=== PATIENT | female | born 1990 | race African-American/Black ===

== ENCOUNTER 2016-03-22 17:25 | Outpatient (CLI) | payer MEDICAID ==
--- NOTE | 2016-03-23 04:49 | L&D General Admission ---
General Admit Datetime Report Generated by CPN: 03/23/2016 04:45 INFORMATION Patient Age: 25 (03/22/2016 17:26:QS system process) EDC: 05/10/2016 00:00 (03/22/2016 17:30:Amaya Emmanuel RN) : 3 (03/22/2016 17:30:ARNOLDO Arzola) Para: 0 (03/22/2016 17:30:ARNOLDO Arzola) Term: 0 (03/22/2016 17:30:ARNOLDO Arzola) : 0 (03/22/2016 17:30:ARNOLDO Arzola) Spontaneous Abortions: 0 (03/22/2016 17:30:ARNOLDO Arzola) Induced Abortions: 2 (03/22/2016 17:30:ARNOLDO Arzola) Livin (03/22/2016 17:30:ARNOLDO Arzola) Cesareans: 0 (03/22/2016 17:30:ARNOLDO Arzola) VBACs: 0 (03/22/2016 17:30:Uma Turner RNC) [facility]ctopic: 0 [facility] Multiple Births: 0 (03/22/2016 17:30:[facility], [facility]) Baby, Number in Womb: 1 (03/22/2016 17:30:[facility], [facility]) CARE [facility] ([facility]/22[facility]2016 [facility]) Month of 1st Visit: October (03/22/2016 17:30:[facility], [facility]) Adequate Care: Yes (03/22/2016 17:30:[facility] [place], [facility]) Prepregnancy Weight (lb): 188 (03/22/2016 17:30:[facility], [facility]) Prepregnancy Weight (kg): 85.5 (03/22/2016 17:30:QS system process) Height (in): 63 (03/22/2016 18:34:QS system process) Height (in): 63 (03/22/2016 17:59:QS system process) Height (in): 63 (03/22/2016 17:58:QS system process) ALLERGIES Medication Allergy: No (03/22/2016 17:30:Uma Camp, RNC) Medication Allergies: No Known Allergies (03/22/2016) (03/22/2016 17:58:QS system process) Latex Allergy: No Latex Allergies (03/22/2016 17:30:Uma Camp, RNC) COMMUNICATION Primary Language: Greek (03/22/2016 17:30:Uma Camp, RNC) Medical Tx Preferred Language: Greek (03/22/2016 17:30:Uma Camp, RNC) Communication Barrier(s): None (03/22/2016 17:30:Uma Camp, RNC) DEMOGRAPHICS Address: [address] [place] [id number] (03/22/2016 17:26:QS system process) Zipcode: [address] (03/22/2016 17:26:QS system process) Home (03/22/2016 17:26:QS system process) N: [id number] (03/22/2016 17:26:QS system process) Next of Kin Name: CONTRERAS (03/22/2016 17:26:QS system process) Next of Kin (03/22/2016 17:26:QS system process) Next of Kin Relationship: SPO (03/22/2016 17:26:QS system process) Date of : 1990 (03/22/2016 17:26:QS system process) Marital Status: (03/22/2016 17:26:QS system process) Sex: Female (03/22/2016 17:26:QS system process) Occupation: Other (03/22/2016 17:30:ARNOLDO Arzola) Occupation- Other : [employer] (03/22/2016 17:30:ARNOLDO Arzola) Race: (03/22/2016 17:26:QS system process) Ethnicity: Non- or (03/22/2016 17:26:QS system process) Mandaeism: None (03/22/2016 17:26:QS system process) Education: 12 (03/22/2016 17:30:ARNOLDO Arzola) FOB Involved: Yes (03/22/2016 17:30:ARNOLDO Arzola) Father of Baby Name: Freddy Adames (03/22/2016 17:30:ARNOLDO Arzola) DRUG AND ALCOHOL USE Alcohol: No (03/22/2016 17:30:ARNOLDO Arzola) Cigarettes: Never Smoker. 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: [facility] (03/22/2016 17:30:Uma Camp, RN) Feeding Preference: Breast (03/22/2016 17:30:Uma Camp, RNC) Benefit of Breast Feed Discussed: Yes (03/22/2016 17:30:ARNOLDO Arzola) Circumcision: N/A (03/22/2016 17:30:ARNOLDO Arzola) Classes Attended: Unknown (03/22/2016 17:30:ARNOLDO Arzola) Tubal Ligation: No (03/22/2016 17:30:ARNOLDO Arzola) Tubal Authorization Signed: N/A (03/22/2016 17:30:ARNOLDO Arzola) Consent: N/A (03/22/2016 17:30:ARNOLDO Arzola) Consent Signed: N/A (03/22/2016 17:30:ARNOLDO Arzola) Plans for Labor and Delivery: None (03/22/2016 17:30:ARNOLDO Arzola) Support Person: Freddy Adames (03/22/2016 17:30:ARNOLDO Arzola) Support Person Relationship: (03/22/2016 17:30:ARNOLDO Arzola) Cultural/Spritual Practice: N/A (03/22/2016 17:30:ARNOLDO Arzola) Spir/Cult Dietary Needs: N/A (03/22/2016 17:30:ARNOLDO Arzola) LIVING SITUATION/DISCHARGE PLAN Living Arrangements: House (03/22/2016 17:30:ARNOLDO Arzola) Adequate Access to:: Electric; Heat; Refrigeration; Plumbing/Running water; Phone; Transportation (03/22/2016 17:30:ARNOLDO Arzola) WIC Program: Needs referral (03/22/2016 17:30:ARNOLDO Arzola) Discharge Him Director Person: Freddy Adames (03/22/2016 17:30:ARNOLDO Arzola) Person to Help after Discharge: Freddy Adames (03/22/2016 17:30:ARNOLDO Arzola) Currently Using Commun Resources: Yes (03/22/2016 17:30:ARNOLDO Arzola) Specify Current Resource Used: medicaid (03/22/2016 17:30:ARNOLDO Arzola) Outside Agency/Wire Web Worker: No (03/22/2016 17:30:ARNOLDO Arzola) Car Seat for Discharge: Yes (03/22/2016 17:30:ARNOLDO Arzola) Adoption Requested: No (03/22/2016 17:30:ARNOLDO Arzola) LABS Blood Type: O Positive (Annotations: Data stored by [facility] on behalf of user) (03/22/2016 17:30:ARNOLDO Arzola) Group Beta Strep: positive (03/22/2016 17:30:ARNOLDO Arzola) RPR/VDRL: Nonreactive (03/22/2016 17:30:ARNOLDO Arzola) HIV Exposure Test: Negative (03/22/2016 17:30:ARNOLDO Arzola) OB/PREVIOUS HISTORY Previous Procedures: None (03/22/2016 17:30:Uma [place], [facility]) Current Procedures: Ultrasound (03/22/2016 17:30:[facility] [place], [facility]) History of PIH: Unknown (03/22/2016 17:30:[facility], [facility]) Comments Obstetrical History: EAB x2 GHTN, Hypertrhyroidism, positive gbs in initial urine [place] in labor (03/22/2016 17:30:Uma Camp, [facility]) MEDICAL HISTORY Med Hx Thyroid Dysfunction: Yes (03/22/2016 17:30:Uma [place], [facility]) INFECTIOUS HISTORY Inf Hx Chlamydia: Yes (03/22/2016 17:30:Uma [place], [facility]) Details of Infectious Hx: positive chlamydia 10/2015 neg guy 12/01/15 (03/22/2016 17:30:Uma Camp, [facility])
--- NOTE | 2016-03-23 04:49 | L&D Flow Sheet ---
LD Flowsheet Datetime Report Generated by CPN: 03/23/2016 04:45 Datetime: 03/22/2016 18:55 Comments: efm off for discharge to home with reactive nst. See discharge summary (Uma Camp, RNC) Datetime: 03/22/2016 18:44 Comments: active movement verbalized (Uma Camp, RNC) Communication Communication: Report Given to @ Dr Negro (Uma Camp, RNC) Communication Comments: Dr negro given phone report of moderate variability with prolong accels . Reviewed pt ob history orders received to d/c to home with kick counts received (Uma Camp, RNC) Datetime: 03/22/2016 18:36 Vital Signs NBP Sys/Zuleyma/Mean (mmHg): 114 (QS system process) : 66 (QS system process) : 85 (QS system process) Pulse: 81 (QS system process) Datetime: 03/22/2016 18:20 Assessment A Monitor Interventions for FHR: Ultrasound Adjusted (Uma Camp, RNC) Comments: RN at bedside adjusting monitors (Uma Camp, RNC) Datetime: 03/22/2016 18:13 Patient Care Comments: movement palpated (Uma Camp, RNC) Datetime: 03/22/2016 17:52 Patient Care Patient Position/Activity: Right Lateral (Uma Camp, RNC) Datetime: 03/22/2016 17:46 Patient Care Patient Position/Activity: HOB Lowered; Right Lateral (Uma Camp, RNC) I/O Interventions: Popsicle; Clear Liquids Given (Uma Camp, RNC) Datetime: 03/22/2016 17:45 Vital Signs NBP Sys/Zuleyma/Mean (mmHg): 128 (QS system process) : 75 (QS system process) : 94 (QS system process) Pulse: 80 (QS system process) Datetime: 03/22/2016 17:44 Teaching Instructional Method: Demo; Verbal; Patient Instructed; Family/Support Person Instructed; Verbalized Understanding (ARNOLDO Arzola) Plan of Care: Plan of Care Discussed (ARNOLDO Arzola) Unit Routine: Vanderwagen to Room; Call Coleman; Bed; Monitoring (ARNOLDO Arzola) Teaching Comments: POC for NST process explained (ARNOLDO Arzola)
--- NOTE | 2016-03-23 04:49 | Antepartum Discharge Summary ---
Antepartum DC Datetime Report Generated by CPN: 03/23/2016 04:45 DIET/ACTIVITY/RESTRICTIONS Diet: Regular (03/22/2016 19:09:Uma Camp, RNC) Activity: Normal Activity (03/22/2016 19:09:Uma Camp, RNC) TEACHING/INSTRUCTIONS/REFERRALS Instructions Understood: Patient Verbalized Understanding; Support Person Verbalized Understanding (03/22/2016 19:09:Uma Camp, RNC) Referrals: None (03/22/2016 19:09:Uma Camp, RNC) Educational Materials- Other: care notes reviewed and signed for kick counts. (03/22/2016 19:09:Uma Camp, RNC) DISCHARGE INFORMATION Discharged AMA: No (03/22/2016 19:09:Uma Camp, RNC) Discharge Date/Time: 03/22/2016 19:01 (03/22/2016 19:09:Uma Johnny, RNC) Discharged To: Home (03/22/2016 19:09:Uma Camp, RNC) Discharge Provider Name: Corrie Palacios (03/22/2016 19:09:Uma Camp, RNC) Accompanied By: Freddy (03/22/2016 19:09:Uma Camp, RNC) Discharge Method: Ambulatory (03/22/2016 19:09:Uma Camp, RNC) Condition: Stable (03/22/2016 19:09:Uma Camp, RNC) FOLLOW UP INFORMATION Follow Up With: [facility] (03/22/2016 19:09:Uma Camp, RNC) Follow Up On: As Scheduled (03/22/2016 19:09:ARNOLDO Arzola) Follow Up Phone Number: [facility] - (03/22/2016 19:09:ARNOLDO Arzola)
--- NOTE | 2016-03-23 04:49 | L&D Admission Assessment ---
LD ADM ASMT Datetime Report Generated by CPN: 03/23/2016 04:45 WEIGHT Weight (lb): 200 (03/22/2016 18:34:QS system process) Weight (lb): 200 (03/22/2016 17:59:QS system process) Weight (lb): 200 (03/22/2016 17:58:QS system process) Weight (kg): 90.9 (03/22/2016 18:34:QS system process) Weight (kg): 90.9 (03/22/2016 17:59:QS system process) Weight (kg): 90.9 (03/22/2016 17:58:QS system process) Total Wt Gain (lb): 12 (03/22/2016 18:34:QS system process) Total Wt Gain (lb): 12 (03/22/2016 17:59:QS system process) Total Wt Gain (lb): 12 (03/22/2016 17:58:QS system process) Wt Gain (kg): 5.5 (03/22/2016 18:34:QS system process) Wt Gain (kg): 5.5 (03/22/2016 17:59:QS system process) Wt Gain (kg): 5.5 (03/22/2016 17:58:QS system process) BMI: 35.4 (03/22/2016 18:34:QS system process) BMI: 35.4 (03/22/2016 17:59:QS system process)
--- NOTE | 2016-03-23 04:49 | L&D Discharge Summary ---
OB Discharge Summary Datetime Report Generated by CPN: 03/23/2016 04:45 DISCHARGE DIAGNOSIS Diagnosis/Symptoms: Gestational Hypertension Diagnoses/Symptoms Other: iup 33 weeks nonreactive nst Gestation: 33.0 Number of Babies in Womb: 1 Parity: 0 DIET/ACTIVITY/RESTRICTIONS Diet: Regular Activity: Normal Activity TEACHING/INSTRUCTIONS/REFERRALS Instructions Understood: Patient Verbalized Understanding; Support Person Verbalized Understanding Referrals: None Educational Materials- Other: care notes reviewed and signed for kick counts. DISCHARGE INFORMATION Discharged AMA: No Discharge Date/Time: 03/22/2016 19:01 Discharged To: Home Discharge Provider Name: Corrie Palacios Accompanied By: De'Niko Discharge Method: Ambulatory Condition: Stable FOLLOW UP INFORMATION Follow Up With: [facility] Follow Up On: As Scheduled Follow Up Phone Number: [facility] -
== END 2016-03-22 18:45 | disposition home or self-care (01) ==
LOC: LC 17:25
PROVIDERS: ATTEND Obstetrics & Gynecology
PROC: 4A1HXCZ Monitoring of Products of Conception, Cardiac Rate, External Approach (ICD-10-PCS; principal; 2016-03-22)
DX: Z34.93 Encounter for supervision of normal pregnancy, unspecified, third trimester (principal); Z3A.33 33 weeks gestation of pregnancy
CPT/HCPCS: 59025

== ENCOUNTER 2016-03-29 11:25 | Outpatient (CLI) | payer MEDICAID ==
--- NOTE | 2016-03-29 11:38 | Non Stress Test Report ---
Non Stress Test Datetime Report Generated by CPN: 03/29/2016 11:38 DEMOGRAPHIC EGA NST: 33.0 INDICATION Indication for Study: Ordered by Provider VITAL SIGNS Temperature - NST: 98.3 Pulse - NST: 80 RESP - NST: 16 NBPSYS NST: 128 NBPDIA NST: 75 MONITORING Monitor Explained: Monitor Explained; Test Explained; Patient Verbalized Understanding Time on Monitor: 03/22/2016 17:44 Time off Monitor: 03/22/2016 18:55 NST Duration: 71 NST INTERVENTIONS NST Interventions: PO Hydration; Reposition Patient BABY A: [id number] BABY A Movement : Present Movement : Present Contraction Frequency : none FHR Baseline : 140 Accelerations : 15X15 Decelerations : Early Variability : Moderate 6-25bpm Variability : Moderate 6-25bpm NST Review: Meets Criteria for Reactive NST NST Review: Meets Criteria for Reactive NST NST Review and Verified By : Mira Emmanuel RN NST Results: Reactive NST REPORT Report Trigger: Send Report
--- NOTE | 2016-03-29 12:01 | L&D Flow Sheet ---
LD Flowsheet Datetime Report Generated by CPN: 03/29/2016 12:00 Datetime: 03/29/2016 11:55 Patient Care Comments: side to side (Terell Maddy, RN) Datetime: 03/29/2016 11:43 NBP Sys/Zuleyma/Mean (mmHg): 143 (QS system process) : 88 (QS system process) : 109 (QS system process) Pulse: 107 (QS system process) Datetime: 03/29/2016 11:42 I/O Interventions: Popsicle (Terell Castañeda, RN) Datetime: 03/29/2016 11:40 Respirations: 16 (Terell Csatañeda RN) Temperature (F): 98.0 (Terell Castañeda, RN) Temperature (C): 36.7 (QS system process) Monitor Interventions for UA: [place] Adjusted (Terell Castañeda RN) Monitor Interventions for FHR: Ultrasound Adjusted (Terell Castañeda RN) Pain Presence: None/Denies (Terell Castañeda, RN) Level of Consciousness: Fully Conscious (Terell Castañeda, RN) DTR's/Clonus: DTRs 2+; No Clonus (Terell Castañeda RN) Headache: Denies (Terell Castañeda RN) Breath Sounds, Left: Clear and Equal (Terell Castañeda RN) Breath Sounds, Right: Clear and Equal (Terell Castañeda, RN) Nausea/Vomiting: Denies (Terell Castañeda RN) RUQ Epigastric Pain: Denies (Terell Castañeda RN) Patient Position/Activity: Left Lateral (Terell Castañeda RN) I/O Interventions: Up to BR (Terell Castañeda RN) Patient Care Comments: Patient to L_D for Repeat NST (Terell Castañeda RN) Instructional Method: Verbal; Patient Instructed; Family/Support Person Instructed; Verbalized Understanding (Terell Castañeda RN) Plan of Care: Plan of Care Discussed (Terell Castañeda RN) Related: Common Discomforts of ; Maternal Physical Changes; Maternal Emotional Changes; Nutrition; Hydration; Activity and Rest (Terell Castañeda RN) Communication: RN at Bedside (Terell Castañeda RN)
== END 2016-03-29 15:00 | disposition home or self-care (01) ==
LOC: LC 11:25
PROVIDERS: ATTEND Obstetrics & Gynecology
PROC: 4A1HXCZ Monitoring of Products of Conception, Cardiac Rate, External Approach (ICD-10-PCS; principal; 2016-03-29)
DX: Z34.93 Encounter for supervision of normal pregnancy, unspecified, third trimester (principal); Z36 Encounter for antenatal screening of mother; Z3A.34 34 weeks gestation of pregnancy
CPT/HCPCS: 59025; 76819

== ENCOUNTER 2016-04-07 10:55 | Outpatient (CLI) | payer MEDICAID ==
--- NOTE | 2016-04-07 12:01 | L&D Flow Sheet ---
LD Flowsheet Datetime Report Generated by CPN: 04/07/2016 12:00 Datetime: 04/07/2016 11:14 Vital Signs NBP Sys/Zuleyma/Mean (mmHg): 117 (QS system process) : 75 (QS system process) : 92 (QS system process) Pulse: 85 (QS system process)
== END 2016-04-07 12:00 | disposition home or self-care (01) ==
LOC: LC 10:55
PROVIDERS: ATTEND Obstetrics & Gynecology
PROC: 4A1HXCZ Monitoring of Products of Conception, Cardiac Rate, External Approach (ICD-10-PCS; principal; 2016-04-07)
DX: O13.3 Gestational [pregnancy-induced] hypertension without significant proteinuria, third trimester (principal); Z3A.35 35 weeks gestation of pregnancy
CPT/HCPCS: 59025

== ENCOUNTER 2016-04-12 18:25 | Outpatient (CLI) | payer MEDICAID | END 2016-04-12 19:14 | disposition home or self-care (01) | LOC: LC 18:25 | PROVIDERS: ATTEND Specialist | PROC: 4A1HXCZ Monitoring of Products of Conception, Cardiac Rate, External Approach (ICD-10-PCS; principal; 2016-04-12) | DX: Z34.93 Encounter for supervision of normal pregnancy, unspecified, third trimester (principal); Z36 Encounter for antenatal screening of mother; Z3A.36 36 weeks gestation of pregnancy | CPT/HCPCS: 59025 ==

== ENCOUNTER → 2016-04-15 | Outpatient (CLI) | payer MEDICAID ==
--- NOTE | 2016-04-15 18:00 | L&D Flow Sheet ---
LD Flowsheet Datetime Report Generated by CPN: 04/15/2016 18:00 Datetime: 04/15/2016 17:53 NBP Sys/Zuleyma/Mean (mmHg): 138 (QS system process) : 81 (QS system process) : 104 (QS system process) Pulse: 93 (QS system process) LaborFlag: Labor (QS system process) Datetime: 04/15/2016 17:35 Stage of : Labor (Celestina Jones [facility])
[2016-04-15 18:03] LABS: APPEARANCE,URINE SLIGHTLY-CLOUDY; BILIRUBIN,URINE NEGATIVE (NEGATIVE); GLUCOSE, URINE 50 mg/dL (NEGATIVE); KETONES,URINE NEGATIVE (NEGATIVE); LEUKOCYTE ESTERASE,URINE NEGATIVE (NEGATIVE); NITRITE,URINE NEGATIVE (NEGATIVE); PROTEIN,URINE NEGATIVE (NEGATIVE); URINE SPECIFIC GRAVITY 1.004; UROBILINOGEN,URINE NEGATIVE mg/dL (<2.0)
[2016-04-15 18:04] LABS: ABSOLUTE EOSINOPHILS # (AUTO) 0.1 10^3/uL (0.0-0.6); ABSOLUTE LYMPHOCYTES (AUTO) 2.7 10^3/uL (0.5-4.7); ABSOLUTE MONOCYTES (AUTO) 1.6 10^3/uL (0.1-1.4); ABSOLUTE NEUT (AUTO) 9.9 10^3/uL (1.7-8.2); BASOPHILS % (AUTO) 0.3 % (0-2); EOSINOPHILS % (AUTO) 0.9 % (0-6); HEMATOCRIT 34.4 % (36.0-47.0); HEMOGLOBIN 11.7 g/dL (12.0-15.5); HGB HCT DIFFERENCE 0.7; LYMPHOCYTES % (AUTO) 18.6 % (13-45); MEAN CORPUSCULAR HEMOGLOBIN 30.6 pg (27.0-33.4); MEAN CORPUSCULAR HGB CONC 34.1 g/dL (32.0-36.0); MEAN CORPUSCULAR VOLUME 90 fl (80-97); MONOCYTES % (AUTO) 11.2 % (3-13); RED BLOOD COUNT 3.83 10^6/uL (3.72-5.28); RED CELL DISTRIBUTION WIDTH 13.4 % (11.5-14.0); WHITE BLOOD COUNT 14.4 10^3/uL (4.0-10.5)
[2016-04-15 18:19] LABS: URINE BARBITURATES SCREEN NEGATIVE; URINE METHADONE SCREEN NEGATIVE; URINE OPIATES LOW NEGATIVE; URINE PHENCYCLIDINE SCREEN NEGATIVE
[2016-04-15 18:23] LABS: ALANINE AMINOTRANSFERASE 26 U/L (9-52); ALBUMIN 3.2 g/dL (3.5-5.0); ALKALINE PHOSPHATASE 163 U/L (38-126); ANION GAP 10 (5-19); ASPARTATE AMINO TRANSFERASE 19 U/L (14-36); BILIRUBIN,TOTAL 0.4 mg/dL (0.2-1.3); BLOOD UREA NITROGEN 7 mg/dL (7-20); CALCIUM 9.9 mg/dL (8.4-10.2); CARBON DIOXIDE 25 mmol/L (22-30); CHLORIDE 105 mmol/L (98-107); CREATININE RESULT 0.59 mg/dL (0.52-1.25); GLUCOSE 91 mg/dL (75-110); LDH 416 U/L (313-618); POTASSIUM 3.6 mmol/L (3.6-5.0); SODIUM 139.6 mmol/L (137-145); TOTAL PROTEIN 6.3 g/dL (6.3-8.2); URIC ACID 3.7 mg/dL (2.5-6.2)
--- NOTE | 2016-04-15 20:00 | L&D Flow Sheet ---
LD Flowsheet Datetime Report Generated by CPN: 04/15/2016 20:00 Datetime: 04/15/2016 18:47 Additional Nursing Comments: Pt physically left L_D ambulatory in stable condition with 24 hour urine in hand and instructions for f/u Yves at office. (ARNOLDO Acosta) Datetime: 04/15/2016 18:37 Communication: Call/Page Returned by Provider (ARNOLDO Acosta) Communication Comments: Report to Dr. Munoz re: labs, Bps, reactive EFM tracing, orders for D/C home received with F/U at office. (Celestina Jones, RNC) Datetime: 04/15/2016 18:24 NBP Sys/Zuleyma/Mean (mmHg): 120 (QS system process) : 71 (QS system process) : 89 (QS system process) Pulse: 87 (QS system process) LaborFlag: Labor (QS system process) Datetime: 04/15/2016 18:08 NBP Sys/Zuleyma/Mean (mmHg): 135 (QS system process) : 78 (QS system process) : 102 (QS system process) Pulse: 102 (QS system process) LaborFlag: Labor (QS system process) Datetime: 04/15/2016 18:00 Monitor Mode: External; Palpation (ARNOLDO Acosta) Frequency (min): x0 (ARNOLDO Acosta) Quality: Mild/Moderate (ARNOLDO Acosta) Duration Criteria: Less than Two 120 Second Contractions (ARNOLDO Acosta) Pattern: Normal: <= 5 Contractions in 10 Minutes (ARNOLDO Acosta) Resting Tone (Palpate): Relaxed (ARNOLDO Acosta) Monitor Mode: External US (ARNOLDO Acosta) FHR Baseline Rate : 145 (ARNOLDO Acosta) Variability: Moderate 6-25 bpm (ARNOLDO Aocsta) Accelerations: 15X15 (ARNOLDO Acosta) Decelerations: None (ARNOLDO Acosta)
[2016-04-20 14:03] LABS: PROTEIN TOTAL UR 24HR 632.2 mg/24 hr (30.0-150.0)
== END ==
LOC: LC 17:13
PROVIDERS: ATTEND Obstetrics & Gynecology
PROC: 4A1HXCZ Monitoring of Products of Conception, Cardiac Rate, External Approach (ICD-10-PCS; principal; 2016-04-15)
DX: O13.3 Gestational [pregnancy-induced] hypertension without significant proteinuria, third trimester (principal); Z3A.36 36 weeks gestation of pregnancy
CPT/HCPCS: 36415; 59025; 80053; 80307; 81001; 83615; 84156; 84550; 85025

== ENCOUNTER 2016-04-18 16:33 | Inpatient (IN) | payer MEDICAID ==
[2016-04-18] MEDS ORDERED: MISOPROSTOL 0.1 MG TABLET ONE ×2 (17:15→21:32)
[2016-04-18 17:30] LABS: APPEARANCE,URINE CLEAR; BILIRUBIN,URINE NEGATIVE (NEGATIVE); GLUCOSE, URINE 50 mg/dL (NEGATIVE); KETONES,URINE NEGATIVE (NEGATIVE); LEUKOCYTE ESTERASE,URINE NEGATIVE (NEGATIVE); NITRITE,URINE NEGATIVE (NEGATIVE); PROTEIN,URINE NEGATIVE (NEGATIVE); URINE SPECIFIC GRAVITY 1.004; UROBILINOGEN,URINE NEGATIVE mg/dL (<2.0)
[2016-04-18 18:01] LABS: URINE BARBITURATES SCREEN NEGATIVE; URINE METHADONE SCREEN NEGATIVE; URINE OPIATES LOW NEGATIVE; URINE PHENCYCLIDINE SCREEN NEGATIVE
--- NOTE | 2016-04-18 18:01 | L&D Flow Sheet ---
LD Flowsheet Datetime Report Generated by CPN: 04/18/2016 18:00 Datetime: 04/18/2016 17:37 Pain Scale: 0 (Cheri Arin, RN) Pain Presence: None/Denies (Cheri Arin, RN) Pain Type: N/A (Cheri Arin, RN) Vaginal Bleeding: None (Cheri Arin, RN) Level of Consciousness: Fully Conscious (Cheri Arin, RN) Headache: Denies (Cheri Arin, RN) Breath Sounds, Left: Clear and Equal (Cheri Arin, RN) Breath Sounds, Right: Clear and Equal (Cheri Arin, RN) Nausea/Vomiting: Denies (Cheri Arin, RN) RUQ Epigastric Pain: Denies (Cheri Arin, RN) LaborFlag: Labor (QS system process) Datetime: 04/18/2016 17:33 NBP Sys/Zuleyma/Mean (mmHg): 140 (QS system process) : 93 (QS system process) : 112 (QS system process) Pulse: 84 (QS system process) LaborFlag: Labor (QS system process) Datetime: 04/18/2016 17:22 Communication Comments: C .Barros CNM at bedside (Cheri Arin, RN) Datetime: 04/18/2016 17:20 Patient Position/Activity: Left Tilt (Cheri Arin, RN) Datetime: 04/18/2016 17:16 Exam by: Dr. Nassar (Cheri Hinkle RN) Vaginal Exam Comments: fingertip/thick/high/posterior (Cheri Hinkle RN) Medication Comments: 25mcg Cytotec Pv (Cheri Hinkle RN) Datetime: 04/18/2016 17:03 NBP Sys/Zuleyma/Mean (mmHg): 138 (QS system process) : 98 (QS system process) : 110 (QS system process) Pulse: 85 (QS system process) LaborFlag: Labor (QS system process)
[2016-04-18] MEDS ORDERED: RINGERS SOLUTION,LACTATED 300 ML IV ONE (18:06)
[2016-04-18] MEDS ORDERED: PENICILLIN G POTASSIUM 5,000,000 UNIT in DEXTROSE 5%-WATER 100 ML IV ONE (18:06)
[2016-04-18 19:24] LABS: ABSOLUTE EOSINOPHILS # (AUTO) 0.1 10^3/uL (0.0-0.6); ABSOLUTE LYMPHOCYTES (AUTO) 2.7 10^3/uL (0.5-4.7); ABSOLUTE MONOCYTES (AUTO) 1.2 10^3/uL (0.1-1.4); ABSOLUTE NEUT (AUTO) 8.6 10^3/uL (1.7-8.2); BASOPHILS % (AUTO) 0.2 % (0-2); EOSINOPHILS % (AUTO) 0.9 % (0-6); HEMOGLOBIN 12.1 g/dL (12.0-15.5); HGB HCT DIFFERENCE 0.3; LYMPHOCYTES % (AUTO) 21.3 % (13-45); MEAN CORPUSCULAR HEMOGLOBIN 30.2 pg (27.0-33.4); MEAN CORPUSCULAR HGB CONC 33.5 g/dL (32.0-36.0); MEAN CORPUSCULAR VOLUME 90 fl (80-97); MONOCYTES % (AUTO) 9.6 % (3-13); RED BLOOD COUNT 3.99 10^6/uL (3.72-5.28); RED CELL DISTRIBUTION WIDTH 13.3 % (11.5-14.0); WHITE BLOOD COUNT 12.6 10^3/uL (4.0-10.5)
[2016-04-18 19:46] LABS: ALANINE AMINOTRANSFERASE 32 U/L (9-52); ALBUMIN 3.3 g/dL (3.5-5.0); ALKALINE PHOSPHATASE 187 U/L (38-126); ANION GAP 11 (5-19); ASPARTATE AMINO TRANSFERASE 21 U/L (14-36); BILIRUBIN,TOTAL 0.6 mg/dL (0.2-1.3); BLOOD UREA NITROGEN 3 mg/dL (7-20); CALCIUM 9.3 mg/dL (8.4-10.2); CARBON DIOXIDE 21 mmol/L (22-30); CHLORIDE 105 mmol/L (98-107); CREATININE RESULT 0.53 mg/dL (0.52-1.25); GLUCOSE 72 mg/dL (75-110); LDH 429 U/L (313-618); POTASSIUM 3.4 mmol/L (3.6-5.0); SODIUM 137.2 mmol/L (137-145); TOTAL PROTEIN 6.6 g/dL (6.3-8.2); URIC ACID 3.4 mg/dL (2.5-6.2)
--- NOTE | 2016-04-18 20:01 | L&D Flow Sheet ---
LD Flowsheet Datetime Report Generated by CPN: 04/18/2016 20:00 Datetime: 04/18/2016 19:33 NBP Sys/Zuleyma/Mean (mmHg): 137 (QS system process) : 80 (QS system process) : 103 (QS system process) Pulse: 90 (QS system process) LaborFlag: Antepartum (QS system process) Datetime: 04/18/2016 19:30 Stage of : Antepartum (Gin Del Angel, RN) Monitor Mode: External; Palpation (Gin Del Angel, RN) Frequency (min): irritability (Gin Del Angel RN) Resting Tone (Palpate): Relaxed (Gin Del Angel RN) Monitor Mode: External US (Gin Del Angel RN) FHR Baseline Rate : 130 (Gin Del Angel RN) Variability: Moderate 6-25 bpm (Gin Del Angel RN) Accelerations: 15X15 (Gin Del Angel RN) Comments: UTD if decels present during broken strip (Gin Del Angel RN) Pain Scale: 0 (Gin Del Angel RN) Pain Presence: None/Denies (Gin Del Angel RN) Pain Type: N/A (Gin Del Angel RN) Comfort Measures: Family Support (Gin Del Angel RN) Communication: RN at Bedside; RN Reviewed Strip (Gin Del Angel RN) LaborFlag: Antepartum (QS system process) Datetime: 04/18/2016 19:23 Comments: Patient sitting straight up to eat. Will reposition and adjust FHR monitor when finished with meal. (Gin Del Angel RN) Communication: RN at Bedside (Gin Del Angel RN) Communication Comments: Report given from Nadeem Hinkle RN. Assumed care at this time. (Gin Del Angel RN) Datetime: 04/18/2016 19:12 NBP Sys/Zuleyma/Mean (mmHg): 139 (QS system process) : 85 (QS system process) : 108 (QS system process) Pulse: 81 (QS system process) LaborFlag: Labor (QS system process) Datetime: 04/18/2016 19:09 Patient Position/Activity: Left Tilt (Cheri Arin, RN) Datetime: 04/18/2016 19:00 Monitor Mode: External (Cheri Arin, RN) Frequency (min): none (Cheri Arin, RN) Resting Tone (Palpate): Relaxed (Cheri Arin, RN) Monitor Mode: External US (Cheri Arin, RN) FHR Baseline Rate : 130 (Cheri Arin, RN) Variability: Moderate 6-25 bpm (Cheri Arin, RN) Accelerations: 15X15 (Cheri Arin, RN) Decelerations: None (Cheri Arin, RN) Datetime: 04/18/2016 18:59 I/O Interventions: Up to BR (Cheri Arin, RN) Datetime: 04/18/2016 18:33 NBP Sys/Zuleyma/Mean (mmHg): 142 (QS system process) : 93 (QS system process) : 113 (QS system process) Pulse: 83 (QS system process) LaborFlag: Labor (QS system process) Datetime: 04/18/2016 18:30 Monitor Mode: External; Palpation (Cheri Arin, RN) Frequency (min): none (Cheri Arin, RN) Quality: Mild (Cheri Arin, RN) Resting Tone (Palpate): Relaxed (Cheri Arin, RN) Monitor Mode: External US (Cheri Arin, RN) FHR Baseline Rate : 135 (Cheri Arin, RN) Variability: Moderate 6-25 bpm (Cheri Arin, RN) Accelerations: 15X15 (Cheri Arin, RN) Decelerations: None (Cheri Arin, RN) Datetime: 04/18/2016 18:00 Monitor Mode: External (Cheri Arin, RN) Frequency (min): none (Cheri Arin, RN) Quality: Mild (Cheri Arin, RN) Resting Tone (Palpate): Relaxed (Cheri Arin, RN) Monitor Mode: External US (Cheri Arin, RN) FHR Baseline Rate : 135 (Cheri Arin, RN) Variability: Moderate 6-25 bpm (Cheri Arin, RN) Accelerations: 15X15 (Cheri Arin, RN) Decelerations: None (Cheri Arin, RN)
[2016-04-18] MEDS: RINGERS SOLUTION,LACTATED 1,000 ML IV PRN (20:06)
[2016-04-18] MEDS: MISOPROSTOL 0.1 MG TABLET PV SCH (21:53)
--- NOTE | 2016-04-18 22:00 | L&D Flow Sheet ---
LD Flowsheet Datetime Report Generated by CPN: 04/18/2016 22:00 Datetime: 04/18/2016 21:48 Effacement (%): 50 (Gin Del Angel, RN) Station: -2 (Gin Del Angel, RN) Exam by: B Del Angel, RN (Gin Del Angel, RN) Vaginal Bleeding: None (Gin Del Angel, RN) Cervix, Consistency: Moderate (Gin Del Angel, RN) Cervix, Position: Posterior (Gin Del Angel, RN) Vaginal Exam Comments: Fingertip (Ign Del Angel, RN) Cervical Ripening Agents: Cytotec @ 25 (Gin Del Angel, RN) Medication Comments: PV (Gin Del Angel, RN) Datetime: 04/18/2016 21:24 I/O Interventions: Up to BR (Gin Del Angel, RN) Datetime: 04/18/2016 21:03 NBP Sys/Zuleyma/Mean (mmHg): 137 (QS system process) : 81 (QS system process) : 104 (QS system process) Pulse: 89 (QS system process) LaborFlag: Antepartum (QS system process) Datetime: 04/18/2016 21:00 Stage of : Antepartum (Gin Del Angel, RN) Monitor Mode: External; Palpation (Gin Del Angel, RN) Frequency (min): x1 with irritability (Gin Del Angel, RN) Quality: Mild (Gin Del Angel, RN) Duration (sec): 70 (Gin Del Angel, RN) Pattern: Normal: <= 5 Contractions in 10 Minutes (Gin Del Angel, RN) Resting Tone (Palpate): Relaxed (Gin Del Angel, RN) Monitor Mode: External US (Gin Del Angel, RN) FHR Baseline Rate : 130 (Gin Del Angel, RN) Variability: Moderate 6-25 bpm (Gin Del Angel, RN) Accelerations: 15X15 (Gin Del Angel, RN) Decelerations: None (Gin Del Angel, RN) Communication: RN at Bedside; RN Reviewed Strip (Gin Del Angel, RN) Datetime: 04/18/2016 20:34 I/O Interventions: Up to BR (Gin Del Angel, RN) Datetime: 04/18/2016 20:33 NBP Sys/Zuleyma/Mean (mmHg): 127 (QS system process) : 89 (QS system process) : 105 (QS system process) Pulse: 98 (QS system process) LaborFlag: Antepartum (QS system process) Datetime: 04/18/2016 20:30 Stage of : Antepartum (Gin Del Angel, RN) Respirations: 18 (Gin Del Angel, RN) Temperature (F): 98.2 (Gin Del Angel, RN) Temperature (C): 36.8 (QS system process) Monitor Mode: External; Palpation (Gin Del Angel, RN) Frequency (min): irritability (Gin Del Angel, RN) Resting Tone (Palpate): Relaxed (Gin Del Angel, RN) Monitor Mode: External US (Gin Del Angel, RN) FHR Baseline Rate : 130 (Gin Del Angel, RN) Variability: Moderate 6-25 bpm (Gin Del Angel, RN) Accelerations: 15X15 (Gin Del Angel, RN) Decelerations: None (Gin Del Angel, RN) Pain Scale: 0 (Gin Del Angel RN) Pain Presence: None/Denies (Gin Del Angel, RN) Pain Type: N/A (Gin Del Angel, RN) Pain Relief Measures: Comfort Measures (Gin Del Angel RN) Comfort Measures: Breathing/Relaxation; Family Support (Gin Del Angel RN) Communication: RN at Bedside; RN Reviewed Strip (Gin Del Angel RN) LaborFlag: Antepartum (QS system process) Datetime: 04/18/2016 20:06 IV/Blood Work: New IV Bag Hung (Gin Del Angel, RN) Datetime: 04/18/2016 20:03 NBP Sys/Zuleyma/Mean (mmHg): 136 (QS system process) : 84 (QS system process) : 105 (QS system process) Pulse: 93 (QS system process) LaborFlag: Antepartum (QS system process) Datetime: 04/18/2016 20:00 Stage of : Antepartum (Gin Del Angel, RN) Monitor Mode: External (Gin Del Angel, RN) Frequency (min): x1 (Gin Del Angel, RN) Quality: Mild (Gin Del Angel, RN) Duration (sec): 60 (Gin Del Angel, RN) Resting Tone (Palpate): Relaxed (Gin Del Angel, RN) FHR Baseline Changes: Unable to Determine (Gin Del Angel, RN) Comments: UTD due to baby being off the monitor due to patient positioning for meal. (Gin Del Angel, DAYRON) Communication: RN at Bedside; RN Reviewed Strip (Gin Del Angel RN)
[2016-04-18] MEDS ORDERED: PENICILLIN G-K 5 MILLION UNIT VIAL ONE (23:46)
[2016-04-19] MEDS: PENICILLIN G POTASSIUM 2,500,000 UNIT in DEXTROSE 5%-WATER 50 ML IV SCH ×2 (01:23→03:47)
[2016-04-19] MEDS ORDERED: MISOPROSTOL 0.1 MG TABLET ONE (01:23)
[2016-04-19] MEDS: MISOPROSTOL 0.1 MG TABLET PV SCH (01:24)
[2016-04-19] MEDS ORDERED: PENICILLIN G-K 5 MILLION UNIT VIAL ONE ×2 (03:41→15:38)
--- NOTE | 2016-04-19 08:01 | L&D Flow Sheet ---
LD Flowsheet Datetime Report Generated by CPN: 04/19/2016 08:00 Datetime: 04/19/2016 07:33 NBP Sys/Zuleyma/Mean (mmHg): 142 (QS system process) : 91 (QS system process) : 112 (QS system process) Pulse: 75 (QS system process) LaborFlag: Antepartum (QS system process) Datetime: 04/19/2016 07:15 Communication: RN at Bedside; Report Given to @ Thaddeus Jones RN (Gin Del Angel, RN) Communication Comments: Care relinquished at this time (Gin Del Angel, RN) Datetime: 04/19/2016 07:03 NBP Sys/Zuleyma/Mean (mmHg): 137 (QS system process) : 90 (QS system process) : 111 (QS system process) Pulse: 75 (QS system process) LaborFlag: Antepartum (QS system process) Datetime: 04/19/2016 07:00 Stage of : Antepartum (Gin Del Angel, RN) Monitor Mode: External (Gin Del Angel, RN) Frequency (min): 2-3 (Gin Del Angel, RN) Quality: Mild (Gin Del Angel, RN) Duration (sec): 60-90 (Gin Del Angel, RN) Pattern: Normal: <= 5 Contractions in 10 Minutes (Gin Del Angel, RN) Resting Tone (Palpate): Relaxed (Gin Del Angel, RN) Monitor Mode: External US (Gin Del Angel, RN) FHR Baseline Rate : 125 (Gin Del Angel, RN) Variability: Moderate 6-25 bpm (Gin Del Angel, RN) Accelerations: 10X10 (Gin Del Angel, RN) Decelerations: None (Gin Del Angel, RN) Communication: RN at Bedside; RN Reviewed Strip (Gin Dle Angel, RN) Datetime: 04/19/2016 06:54 I/O Interventions: Up to BR (Gin Del Angel, RN) Datetime: 04/19/2016 06:33 NBP Sys/Zuleyma/Mean (mmHg): 133 (QS system process) : 88 (QS system process) : 107 (QS system process) Pulse: 76 (QS system process) LaborFlag: Antepartum (QS system process) Datetime: 04/19/2016 06:30 Stage of : Antepartum (Gin Del Angel, RN) Monitor Mode: External (Gin Del Angel, RN) Frequency (min): 1-7 (Gin Del Angel, RN) Quality: Mild (Gin Del Angel, RN) Duration (sec): 70-90 (Gin Del Angel, RN) Pattern: Normal: <= 5 Contractions in 10 Minutes (Gin Del Angel, RN) Resting Tone (Palpate): Relaxed (Gin Del Angel, RN) Monitor Mode: External US (Gin Del Angel, RN) FHR Baseline Rate : 125 (Gin Del Angel, RN) Variability: Moderate 6-25 bpm (Gin Del Angel, RN) Accelerations: 10X10 (Gin Del Angel, RN) Communication: RN at Bedside; RN Reviewed Strip (Gin Del Angel, RN) Datetime: 04/19/2016 06:16 I/O Interventions: Up to BR (Gin Del Angel, RN) Datetime: 04/19/2016 06:03 NBP Sys/Zuleyma/Mean (mmHg): 138 (QS system process) : 89 (QS system process) : 109 (QS system process) Pulse: 73 (QS system process) LaborFlag: Antepartum (QS system process) Datetime: 04/19/2016 06:00 Stage of : Antepartum (Gin Del Angel, RN) Monitor Mode: External (Gin Del Angel, RN) Frequency (min): 1.5-3 (Gin Del Angel, RN) Quality: Mild (Gin Del Angel, RN) Duration (sec): 60-100 (Gin Del Angel, RN) Pattern: Normal: <= 5 Contractions in 10 Minutes (Gin Del Angel, RN) Resting Tone (Palpate): Relaxed (Gin Del Angel, RN) Monitor Mode: External US (Gin Del Angel, RN) FHR Baseline Rate : 130 (Gin Del Angel, RN) Variability: Moderate 6-25 bpm (Gin Del Angel, RN) Accelerations: 15X15 (Gin Del Angel, RN) Decelerations: None (Gin Dela Ngel, RN) Communication: RN at Bedside; RN Reviewed Strip (Gin Del Angel, RN) Datetime: 04/19/2016 05:46 Communication: Provider Orders Received (Gin Del Angel, RN) Communication Comments: Provider on unit, reviewed strip and given report re: patient cervical exams and contraction pattern. Orders received to have patient order breakfast and allow patient off monitors for one hour. (Gin Del Angel, RN) Datetime: 04/19/2016 05:42 Dilatation (cm): 0.5 (Gin Del Angel, RN) Effacement (%): 50 (Gin Del Angel, RN) Station: -2 (Gin Del Angel, RN) Exam by: B Del Angel, RN (Gin Del Angel, RN) Membrane Status: Intact (Maxine Lattibmelissa, RN) Vaginal Bleeding: None (Gin Del Angel, RN) Cervix, Consistency: Moderate (Gin Del Angel, RN) Cervix, Position: Posterior (Gin Del Angel, RN) Datetime: 04/19/2016 05:36 I/O Interventions: Up to BR (Gin Del Angel, RN) Datetime: 04/19/2016 05:33 NBP Sys/Zuleyma/Mean (mmHg): 139 (QS system process) : 92 (QS system process) : 110 (QS system process) Pulse: 74 (QS system process) LaborFlag: Antepartum (QS system process) Datetime: 04/19/2016 05:30 Stage of : Antepartum (Gin Del Angel, RN) Respirations: 18 (Gin Del Angel, RN) Temperature (F): 98.1 (Gin Del Angel, RN) Temperature (C): 36.7 (QS system process) Monitor Mode: External; Palpation (Gin Del Angel, RN) Frequency (min): 1.5-2.5 (Gin Del Angel, RN) Quality: Mild (Gin Del Angel, RN) Duration (sec): 70-100 (Gin Del Angel, RN) Pattern: Normal: <= 5 Contractions in 10 Minutes (Gin Del Angel RN) Resting Tone (Palpate): Relaxed (Gin Del Angel RN) Monitor Mode: External US (Gin Del Angel RN) FHR Baseline Rate : 130 (Gin Del Angel RN) Variability: Moderate 6-25 bpm (Gin Del Angel RN) Accelerations: 10X10 (Gin Del Angel RN) Decelerations: None (Gin Del Angel RN) Pain Scale: 2 (Gin Del Angel RN) Pain Presence: Intermittent (Gin Del Angel RN) Pain Type: Cramping (Gin Del Angel RN) Pain Location: Abdomen (Gin Del Angel RN) Pain Goal: 1 (Gin Del Angel RN) Pain Relief Measures: Comfort Measures (Gin Del Angel RN) Pain Coping: Talking Through Contractions (Gin Del Angel RN) Comfort Measures: Breathing/Relaxation (Gin Del Angel RN) Communication: RN at Bedside; RN Reviewed Strip (Gin Del Angel RN) LaborFlag: Antepartum (QS system process) Datetime: 04/19/2016 05:03 NBP Sys/Zuleyma/Mean (mmHg): 131 (QS system process) : 83 (QS system process) : 102 (QS system process) Pulse: 70 (QS system process) LaborFlag: Antepartum (QS system process) Datetime: 04/19/2016 05:00 Stage of : Antepartum (Gin Del Angel, RN) Monitor Mode: External (Gin Del Angel, RN) Frequency (min): 1.5-3 (Gin Del Angel, RN) Quality: Mild (Gin Del Angel, RN) Duration (sec): 70-90 (Gin Del Angel, RN) Pattern: Normal: <= 5 Contractions in 10 Minutes (Gin Del Angel, RN) Resting Tone (Palpate): Relaxed (Gin Del Angel, RN) Monitor Mode: External US (Gin Del Angel, RN) FHR Baseline Rate : 135 (Gin Del Angel, RN) Variability: Moderate 6-25 bpm (Gin Del Angel, RN) Accelerations: 15X15 (Gin Del Angel, RN) Decelerations: None (Gin Del Angel, RN) Communication: RN Reviewed Strip (Gin Del Angel, RN) Datetime: 04/19/2016 04:34 NBP Sys/Zuleyma/Mean (mmHg): 153 (QS system process) : 86 (QS system process) : 110 (QS system process) Pulse: 71 (QS system process) LaborFlag: Antepartum (QS system process) Datetime: 04/19/2016 04:30 Stage of : Antepartum (Gin Del Angel, RN) Monitor Mode: External (Gin Del Angel, RN) Frequency (min): 1.5-3 (Gin Del Angel, RN) Quality: Mild (Gin Del Angel, RN) Duration (sec): 70-90 (Gin Del Angel, RN) Pattern: Normal: <= 5 Contractions in 10 Minutes (Gin Del Angel, RN) Resting Tone (Palpate): Relaxed (Gin Del Angel, RN) Communication: RN Reviewed Strip (Gin Del Angel, RN) Datetime: 04/19/2016 04:04 NBP Sys/Zuleyma/Mean (mmHg): 139 (QS system process) : 85 (QS system process) : 108 (QS system process) Pulse: 72 (QS system process) LaborFlag: Antepartum (QS system process) Datetime: 04/19/2016 04:00 Stage of : Antepartum (Gin Del Angel, RN) Monitor Mode: External (Gin Del Angel, RN) Frequency (min): 1.5-2 (Gin Del Angel, RN) Quality: Mild (Gin Del Angel, RN) Duration (sec): 60-70 (Gin Del Angel, RN) Pattern: Normal: <= 5 Contractions in 10 Minutes (Gin Del Angel, RN) Resting Tone (Palpate): Relaxed (Gin Del Angel, RN) Monitor Mode: External US (Gin Del Angel, RN) Monitor Interventions for FHR: Ultrasound Adjusted (Gin Del Angel, RN) FHR Baseline Rate : 130 (Gni Del Angel, RN) Variability: Moderate 6-25 bpm (Gin Del Angel, RN) Accelerations: 10X10 (Gin Del Angel, RN) Comments: UTD if decels present during broken strip (Gin Del Angel, RN) Communication: RN at Bedside; RN Reviewed Strip (Gin Del Angel, RN) Datetime: 04/19/2016 03:47 Monitor Interventions for FHR: Ultrasound Adjusted (Gin Del Angel, RN) Antibiotics: Penicillin IV (Units) @ 2.5 million units (Gin Del Angel, RN) Datetime: 04/19/2016 03:46 Monitor Interventions for UA: [place] Adjusted (Gin Del Angel, RN) Datetime: 04/19/2016 03:33 NBP Sys/Zuleyma/Mean (mmHg): 141 (QS system process) : 94 (QS system process) : 114 (QS system process) Pulse: 78 (QS system process) LaborFlag: Antepartum (QS system process) Datetime: 04/19/2016 03:30 Stage of : Antepartum (Gin Del Angel, RN) Monitor Mode: External; Palpation (Gin Del Angel, RN) Frequency (min): 1.5-3 (Gin Del Angel, RN) Quality: Mild (Gin Del Angel, RN) Duration (sec): 50-90 (Gin Del Angel, RN) Pattern: Normal: <= 5 Contractions in 10 Minutes (Gin Del Angel, RN) Resting Tone (Palpate): Relaxed (Gin Del Angel, RN) Monitor Mode: External US (Gin Del Angel, RN) FHR Baseline Rate : 135 (Gin Del Angel, RN) Variability: Moderate 6-25 bpm (Gin Del Angel, RN) Accelerations: 15X15 (Gin Del Angel, RN) Decelerations: None (Gin Del Angel, RN) Communication: RN at Bedside; RN Reviewed Strip (Gin Del Angel, RN) Datetime: 04/19/2016 03:27 I/O Interventions: Up to BR (Gin Del Angel, RN) Datetime: 04/19/2016 03:05 NBP Sys/Zuleyma/Mean (mmHg): 121 (QS system process) : 64 (QS system process) : 87 (QS system process) Pulse: 66 (QS system process) LaborFlag: Antepartum (QS system process) Datetime: 04/19/2016 03:00 Stage of : Antepartum (Gin Del Angel RN) Respirations: 18 (Gin Del Angel RN) Monitor Mode: External (Gin Del Angel, DAY[place]) Frequency (min): 2-2.5 (Gin Del Angel RN) Quality: Mild (Gin Del Angel RN) Duration (sec): 60-70 (Gin Del Angel, [place]RON) Pattern: Normal: <= 5 Contractions in 10 Minutes (Gin Del Angel RN) Resting Tone (Palpate): Relaxed (Gin Del Angel RN) Monitor Mode: External US (Gin Del Angel, [place]) FHR Baseline Rate : 145 (Gin Del Angel RN) Variability: Moderate 6-25 bpm (Gin Del Angel, DAYRON) Accelerations: None (Gin Del Angel RN) Pain Scale: 2 (Gin Del Angel RN) Pain Presence: Intermittent (Gin Del Angel RN) Pain Type: Cramping (Gin Del Angel RN) Pain Location: Abdomen (Gin Del Angel RN) Pain Goal: 1 (Gin Del Angel RN) Pain Relief Measures: Comfort Measures (Gin Del Angel RN) Comfort Measures: Breathing/Relaxation; Family Support (Gin Del Angel RN) Communication: RN at Bedside; RN Reviewed Strip (Gin Del Angel RN) LaborFlag: Antepartum (QS system process) Datetime: 04/19/2016 02:54 Monitor Interventions for FHR: Ultrasound Adjusted (Gin Del Angel, RN) Datetime: 04/19/2016 02:49 Monitor Interventions for FHR: Ultrasound Adjusted (Gin Del Angel, RN) Datetime: 04/19/2016 02:48 Monitor Interventions for UA: [place] Adjusted (Gin Del Angel, RN) Datetime: 04/19/2016 02:32 I/O Interventions: Up to BR (Gin Del Angel, RN) Datetime: 04/19/2016 02:30 Stage of : Antepartum (Gin Del Angel, RN) Monitor Mode: External (Gin Del Angel, RN) Frequency (min): 1.5-2.5 (Gin Del Angel, RN) Quality: Mild (Gin Del Angel, RN) Duration (sec): 70-80 (Gin Del Angel, RN) Pattern: Normal: <= 5 Contractions in 10 Minutes (Gin Del Angel, RN) Resting Tone (Palpate): Relaxed (Gin Del Angel, RN) Monitor Mode: External US (Gin Del Angel, RN) FHR Baseline Rate : 145 (Gin Del Angel, RN) Variability: Moderate 6-25 bpm (Gin Del Angel, RN) Accelerations: 10X10 (Gin Del Angel, RN) Decelerations: None (Gin Del Angel, RN) Communication: RN at Bedside; RN Reviewed Strip (Gin Del Angel, RN) Datetime: 04/19/2016 02:06 Monitor Interventions for UA: [place] Adjusted (Gin Del Angel, RN) Datetime: 04/19/2016 02:03 NBP Sys/Zuleyma/Mean (mmHg): 120 (QS system process) : 74 (QS system process) : 93 (QS system process) Pulse: 70 (QS system process) LaborFlag: Antepartum (QS system process) Datetime: 04/19/2016 02:00 Stage of : Antepartum (Gin Del Angel, RN) Monitor Mode: External; Palpation (Gin Del Angel, RN) Frequency (min): 1.5-3 (Gin Del Angel, RN) Quality: Mild (Gin Del Angel, RN) Duration (sec): 50-80 (Gin Del Nagel, RN) Pattern: Normal: <= 5 Contractions in 10 Minutes (Gin Del Angel, RN) Resting Tone (Palpate): Relaxed (Gin Del Angel, RN) Monitor Mode: External US (Gin Del Angel, RN) FHR Baseline Rate : 135 (Gin Del Angel, RN) Variability: Moderate 6-25 bpm (Gin Del Angel, RN) Accelerations: 15X15 (Gin Del Angel, RN) Decelerations: None (Gin Del Angel, RN) Communication: RN at Bedside; RN Reviewed Strip (Gin Del Angel, RN) Datetime: 04/19/2016 01:33 NBP Sys/Zuleyma/Mean (mmHg): 130 (QS system process) : 82 (QS system process) : 101 (QS system process) Pulse: 75 (QS system process) LaborFlag: Antepartum (QS system process) Datetime: 04/19/2016 01:30 Stage of : Antepartum (Gin Del Angel, RN) Monitor Mode: External (Gin Del Angel, RN) Frequency (min): 2-3 (Gin Del Angel, RN) Quality: Mild (Gin Del Angel, RN) Duration (sec): 50-70 (Gin Del Angel, RN) Pattern: Normal: <= 5 Contractions in 10 Minutes (Gin Del Angel, RN) Monitor Mode: External US (Gin Del Angel, RN) FHR Baseline Rate : 135 (Gin Del Angel, RN) Variability: Moderate 6-25 bpm (Gin Del Angel, RN) Accelerations: 15X15 (Gin Del Angel, RN) Comments: no decels noted while patient on monitors, UTD of decels present while patient using restroom (Gin Del Angel, RN) Communication: RN at Bedside; RN Reviewed Strip (Gin Del Angel, RN) Datetime: 04/19/2016 01:24 Cervical Ripening Agents: Cytotec @ 25 (Gin Del Angel, RN) Medication Comments: PV (Gin Del Angel, RN) Datetime: 04/19/2016 01:01 I/O Interventions: Up to BR (Gin Del Angel RN) Datetime: 04/19/2016 01:00 Stage of : Antepartum (Gin Del Angel RN) Monitor Mode: External; Palpation (Gin Del Angel RN) Frequency (min): 1-7 (Gin Del Angel RN) Quality: Mild (Gin Del Angel RN) Duration (sec): 50-90 (Gin Del Angel RN) Pattern: Normal: <= 5 Contractions in 10 Minutes (Gin Del Angel RN) Resting Tone (Palpate): Relaxed (Gin Del Angel RN) Monitor Mode: External US (Gin Del Angel RN) FHR Baseline Rate : 130 (Gin Del Angel RN) Variability: Moderate 6-25 bpm (Gin Del Angel RN) Accelerations: 15X15 (Gin Del Angel RN) Decelerations: None (Gin Del Angel RN) Dilatation (cm): 0.5 (Gin Del Angel RN) Effacement (%): 50 (Gin Del Angel RN) Station: -2 (Gin Del Angel RN) Exam by: Bonifacio Del Angel RN (Gin Del Angel RN) Vaginal Bleeding: None (Gin Del Angel RN) Cervix, Consistency: Moderate (Gin Del Angel RN) Cervix, Position: Posterior (Gin Del Angel RN) Vaginal Exam Comments: Fingertip (Gin Del Angel RN) Communication: RN at Bedside; RN Reviewed Strip (Gin Del Angel RN) Datetime: 04/19/2016 00:34 NBP Sys/Zuleyma/Mean (mmHg): 140 (QS system process) : 83 (QS system process) : 107 (QS system process) Pulse: 82 (QS system process) LaborFlag: Antepartum (QS system process) Datetime: 04/19/2016 00:30 Stage of : Antepartum (Gin Del Angel, RN) Monitor Mode: External; Palpation (Gin Del Angel, RN) Frequency (min): 1.5-3 (Gin Del Angel, RN) Quality: Mild (Gin Del Angel, RN) Duration (sec): 40-80 (Gin Del Angel, RN) Pattern: Normal: <= 5 Contractions in 10 Minutes (Gin Del Angel, RN) Resting Tone (Palpate): Relaxed (Gin Del Angel, RN) Monitor Mode: External US (Gin Del Angel, RN) FHR Baseline Rate : 130 (Gin Del Angel, RN) Variability: Moderate 6-25 bpm (Gin Del Angel, RN) Accelerations: 15X15 (Gin Del Angel, RN) Decelerations: None (Gin Del Angel RN) Pain Scale: 2 (iGn Del Angel RN) Pain Presence: Intermittent (Gin Del Angel RN) Pain Type: Cramping (Gin Del Angel RN) Pain Location: Abdomen; Back (Gin Del Angel RN) Pain Goal: 1 (Gin Del Angel RN) Pain Coping: Talking Through Contractions (Gin Del Angel RN) Comfort Measures: Breathing/Relaxation (Gin DelA ngel RN) Communication: RN at Bedside; RN Reviewed Strip (Gin Del Angel RN) LaborFlag: Antepartum (QS system process) Datetime: 04/19/2016 00:07 I/O Interventions: Ice Chips Given; Clear Liquids Given (Gin Del Angel RN) Datetime: 04/19/2016 00:03 NBP Sys/Zuleyma/Mean (mmHg): 135 (QS system process) : 89 (QS system process) : 104 (QS system process) Pulse: 72 (QS system process) LaborFlag: Antepartum (QS system process) Datetime: 04/19/2016 00:02 Monitor Interventions for UA: [place] Adjusted (Gin Del Angel, RN) Datetime: 04/19/2016 00:00 Stage of : Antepartum (Gin Del Angel, RN) Respirations: 18 (Gin Del Angel, RN) Temperature (F): 98.0 (Gin Del Angel, RN) Temperature (C): 36.7 (QS system process) Monitor Mode: External; Palpation (Gin Del Angel, RN) Frequency (min): x1 (Gin Del Angel, RN) Quality: Mild (Gin Del Angel, RN) Duration (sec): 80 (Gin Del Angel, RN) Pattern: Normal: <= 5 Contractions in 10 Minutes (Gin Del Angel, RN) Resting Tone (Palpate): Relaxed (Gin Del Anegl, RN) Monitor Mode: External US (Gin Del Angel, RN) FHR Baseline Rate : 130 (Gin Del Angel, RN) Variability: Moderate 6-25 bpm (Gin Del Angel, RN) Accelerations: 15X15 (Gin Del Angel, RN) Decelerations: None (Gin Del Angel RN) Pain Scale: 2 (Gin Del Angel RN) Pain Presence: Intermittent (Gin Del Angel RN) Pain Type: Cramping (Gin Del Angel RN) Pain Location: Abdomen; Back (Gin Del Angel RN) Pain Goal: 1 (Gin Del Angel RN) Pain Coping: Talking Through Contractions (Gin Del Angel RN) Comfort Measures: Breathing/Relaxation (Gin Del Angel RN) Communication: RN at Bedside; RN Reviewed Strip (Gin Del Angel RN) LaborFlag: Antepartum (QS system process) Datetime: 04/18/2016 23:59 Antibiotics: Start Antibiotics; Penicillin IV (Units) @ 5 million units (Gin Del Angel, RN) Datetime: 04/18/2016 23:48 I/O Interventions: Up to BR (Gin Del Angel, RN) Datetime: 04/18/2016 23:33 NBP Sys/Zuleyma/Mean (mmHg): 133 (QS system process) : 85 (QS system process) : 105 (QS system process) Pulse: 80 (QS system process) LaborFlag: Antepartum (QS system process) Datetime: 04/18/2016 23:30 Stage of : Antepartum (Gin Del Angel, RN) Monitor Mode: External (Gin Del Angel, RN) Frequency (min): x1 (Gin Del Angel, RN) Quality: Mild (Gin Del Angel, RN) Duration (sec): 70 (Gin Del Angel, RN) Pattern: Normal: <= 5 Contractions in 10 Minutes (Gin Del Angel, RN) Monitor Mode: External US (Gin Del Angel, RN) FHR Baseline Rate : 135 (Gin Del Angel, RN) Variability: Moderate 6-25 bpm (Gin Del Angel, RN) Accelerations: 15X15 (Gin Del Angel, RN) Decelerations: None (Gin Del Angel, RN) Pain Coping: Sleeping (Gin Del Angel, RN) Communication: RN at Bedside; RN Reviewed Strip (Gin Del Angel, RN) Datetime: 04/18/2016 23:03 NBP Sys/Zuleyma/Mean (mmHg): 142 (QS system process) : 84 (QS system process) : 109 (QS system process) Pulse: 74 (QS system process) LaborFlag: Antepartum (QS system process) Datetime: 04/18/2016 23:00 Stage of : Antepartum (Gin Del Angel, RN) Monitor Mode: External (Gin Del Angel, RN) Frequency (min): x2 (Gin Del Angel, RN) Quality: Mild (Gin Del Angel, RN) Duration (sec): 60-70 (Gin Del Angel, RN) Pattern: Normal: <= 5 Contractions in 10 Minutes (Gin Del Angel, RN) Monitor Mode: External US (Gin Del Angel, RN) FHR Baseline Rate : 140 (Gin Del Angel, RN) Variability: Moderate 6-25 bpm (Gin Del Angel, RN) Accelerations: 15X15 (Gin Del Angel, RN) Decelerations: None (Gin Del Angel, RN) Communication: RN Reviewed Strip (Gni Del Angel, RN) Datetime: 04/18/2016 22:44 I/O Interventions: Up to BR (Gin Del Angel, RN) Datetime: 04/18/2016 22:33 NBP Sys/Zuleyma/Mean (mmHg): 131 (QS system process) : 84 (QS system process) : 102 (QS system process) Pulse: 84 (QS system process) LaborFlag: Antepartum (QS system process) Datetime: 04/18/2016 22:30 Stage of : Antepartum (Gin Del Angel, RN) Monitor Mode: External (Gin Del Angel, RN) Frequency (min): none (Gin Del Angel, RN) Monitor Mode: External US (Gin Del Angel, RN) FHR Baseline Rate : 145 (Gin Del Angel, RN) Variability: Moderate 6-25 bpm (Gin Del Angel, RN) Accelerations: 15X15 (Gin Del Angel, RN) Decelerations: None (Gin Del Angel, RN) Communication: RN Reviewed Strip (Gin Del Angel, RN) Datetime: 04/18/2016 22:03 NBP Sys/Zuleyma/Mean (mmHg): 133 (QS system process) : 78 (QS system process) : 100 (QS system process) Pulse: 83 (QS system process) LaborFlag: Antepartum (QS system process) Datetime: 04/18/2016 22:00 Stage of : Antepartum (Gin Del Angel, RN) Monitor Mode: External (Gin Del Angel, RN) Frequency (min): irritability (Gin Del Angel, RN) Monitor Mode: External US (Gin Del Angel RN) FHR Baseline Rate : 140 (Gin Del Angel RN) Variability: Moderate 6-25 bpm (Gin Del Angel RN) Accelerations: 15X15 (Gin Del Angel RN) Decelerations: None (Gin Del Angel RN) Communication: RN at Bedside; RN Reviewed Strip (Gin Del Angel RN)
--- NOTE | 2016-04-19 10:01 | L&D Flow Sheet ---
LD Flowsheet Datetime Report Generated by CPN: 04/19/2016 10:00 Datetime: 04/19/2016 09:54 NBP Sys/Zuleyma/Mean (mmHg): 131 (QS system process) : 94 (QS system process) : 108 (QS system process) Pulse: 86 (QS system process) LaborFlag: Antepartum (QS system process) Datetime: 04/19/2016 08:05 Pain Assessment Comments: crampy (Bhargavi Bellavance, RNC) Dilatation (cm): 1.0 (Bhargavi Bellavance, RNC) Effacement (%): 50 (Bhargavi Mccracken, RNC) Station: -3 (Bhargavi Mccracken, RNC) Exam by: Dr Nassar (Bhargavi Mccracken, ARNOLDO) LaborFlag: Antepartum (QS system process) Datetime: 04/19/2016 08:03 NBP Sys/Zuleyma/Mean (mmHg): 142 (QS system process) : 89 (QS system process) : 111 (QS system process) Pulse: 73 (QS system process) LaborFlag: Antepartum (QS system process)
[2016-04-19] MEDS ORDERED: OXYTOCIN/NORMAL SALINE 20 UNIT/1,000 ML RTUINJ ONE (10:29)
[2016-04-19] MEDS: PENICILLIN G-K 5 MILLION UNIT VIAL IV SCH (10:53)
--- NOTE | 2016-04-19 12:00 | L&D Flow Sheet ---
LD Flowsheet Datetime Report Generated by CPN: 04/19/2016 12:00 Datetime: 04/19/2016 11:27 NBP Sys/Zuleyma/Mean (mmHg): 129 (QS system process) : 75 (QS system process) : 96 (QS system process) Pulse: 77 (QS system process) LaborFlag: Antepartum (QS system process) Datetime: 04/19/2016 11:00 Monitor Mode: External; Palpation (ARNOLDO Acosta) Frequency (min): 2-4 (Celestina Robert, RNC) Quality: Mild (Celestina Robert, RNC) Duration (sec): 50-80 (Celestina Robert, RNC) Duration Criteria: Less than Two 120 Second Contractions (Ceelstina Robert, RNC) Pattern: Normal: <= 5 Contractions in 10 Minutes (Celestina Robert, RNC) Resting Tone (Palpate): Relaxed (Celestina Robert, RNC) Monitor Mode: External US (Celestina Robert, RNC) FHR Baseline Rate : 135 (Celestina Robert, RNC) Variability: Moderate 6-25 bpm (Celestina Robert, RNC) Accelerations: 15X15 (Celestina Robert, RNC) Decelerations: None (Celestina Robert, RNC) Datetime: 04/19/2016 10:57 NBP Sys/Zuleyma/Mean (mmHg): 123 (QS system process) : 70 (QS system process) : 89 (QS system process) Pulse: 81 (QS system process) LaborFlag: Antepartum (QS system process) Datetime: 04/19/2016 10:43 Pitocin (milliunit): Pitocin Started (milliunits) @ 2 (ARNOLDO Arzola) Medication Comments: infused via Horizon pump, connected at port closest to site (ARNOLDO Arzola) Datetime: 04/19/2016 10:40 Antibiotics: Penicillin IV (Units) @ 2.5 Million (ARNOLDO Acosta) Datetime: 04/19/2016 10:30 Monitor Mode: External; Palpation (ARNOLDO Acosta) Frequency (min): 1.5-3 (ARNOLDO Acosta) Quality: Mild (ARNOLDO Acosta) Duration (sec): 50-80 (ARNOLDO Acosta) Duration Criteria: Less than Two 120 Second Contractions (ARNOLDO Acosta) Pattern: Normal: <= 5 Contractions in 10 Minutes (ARNOLDO Acosta) Resting Tone (Palpate): Relaxed (ARNOLDO Acosta) Monitor Mode: External US (ARNOLDO Acosta) FHR Baseline Rate : 135 (Celestina Robert, RNC) Variability: Moderate 6-25 bpm (Celestina Jones, RNC) Accelerations: 15X15 (Celestina Jones, RNC) Decelerations: None (Celestina Jones RNC) Datetime: 04/19/2016 10:28 NBP Sys/Zuleyma/Mean (mmHg): 135 (QS system process) : 85 (QS system process) : 105 (QS system process) Pulse: 87 (QS system process) LaborFlag: Antepartum (QS system process)
--- NOTE | 2016-04-19 14:00 | L&D Flow Sheet ---
LD Flowsheet Datetime Report Generated by CPN: 04/19/2016 14:00 Datetime: 04/19/2016 13:58 NBP Sys/Zuleyma/Mean (mmHg): 149 (QS system process) : 97 (QS system process) : 118 (QS system process) Pulse: 85 (QS system process) LaborFlag: Antepartum (QS system process) Datetime: 04/19/2016 13:30 Monitor Mode: External; Palpation (ARNOLDO Acosta) Frequency (min): 1.5-5 (Celestina Robert, RNC) Quality: Mild (Celestina Robert, RNC) Duration (sec): 40-60 (Celestina Robert, RNC) Duration Criteria: Less than Two 120 Second Contractions (Celestina Robert, RNC) Pattern: Normal: <= 5 Contractions in 10 Minutes (Celestina Robert, RNC) Resting Tone (Palpate): Relaxed (Celestina Robert, RNC) Monitor Mode: External US (Celestina Robert, RNC) FHR Baseline Rate : 135 (Celestina Robert, RNC) Variability: Moderate 6-25 bpm (Celestina Robert, RNC) Accelerations: 15X15 (Celestina Robert, RNC) Decelerations: None (Celestina Robert, RNC) Pitocin (milliunit): Pitocin Increased to (milliunits) @ 12 (Celestina Robert, RNC) Datetime: 04/19/2016 13:27 NBP Sys/Zuleyma/Mean (mmHg): 126 (QS system process) : 70 (QS system process) : 92 (QS system process) Pulse: 72 (QS system process) LaborFlag: Antepartum (QS system process) Datetime: 04/19/2016 13:15 Monitor Mode: External; Palpation (Celestina Robert, RNC) Frequency (min): 2.5-5 (Celestina Robert, RNC) Quality: Mild (Celestina Robert, RNC) Duration (sec): 50-80 (Celestina Robert, RNC) Duration Criteria: Less than Two 120 Second Contractions (Celestina Robert, RNC) Pattern: Normal: <= 5 Contractions in 10 Minutes (Celestina Robert, RNC) Resting Tone (Palpate): Relaxed (Celestina Robert, RNC) Monitor Mode: External US (Celestina Robert, RNC) FHR Baseline Rate : 125 (Celestina Robert, RNC) Variability: Moderate 6-25 bpm (Celestina Robert, RNC) Accelerations: None (Celestina Robert, RNC) Decelerations: None (Celestina Roebrt, RNC) Datetime: 04/19/2016 13:00 Monitor Mode: External; Palpation (Celestina Robert, RNC) Frequency (min): 1-2.5 (Celestina Robert, RNC) Quality: Mild (Celestina Robert, RNC) Duration (sec): 50-90 (Celestina Robert, RNC) Duration Criteria: Less than Two 120 Second Contractions (Celestina Robert, RNC) Pattern: Normal: <= 5 Contractions in 10 Minutes (Celestina Robert, RNC) Resting Tone (Palpate): Relaxed (Celestina Robert, RNC) Monitor Mode: External US (Celetsina Robert, RNC) FHR Baseline Rate : 125 (Celestina Robert, RNC) Variability: Moderate 6-25 bpm (Celestina Robert, RNC) Accelerations: 15X15 (Celestina Robert, RNC) Decelerations: None (Celestina Robert, RNC) Datetime: 04/19/2016 12:57 NBP Sys/Zuleyma/Mean (mmHg): 120 (QS system process) : 73 (QS system process) : 91 (QS system process) Pulse: 78 (QS system process) LaborFlag: Antepartum (QS system process) Datetime: 04/19/2016 12:45 Monitor Mode: External; Palpation (Celestina Robert, RNC) Frequency (min): 1.5-4 (Celestina Robert, RNC) Quality: Mild (Celestina Robert, RNC) Duration (sec): 50-80 (Celestina Robert, RNC) Duration Criteria: Less than Two 120 Second Contractions (Celestina Robert, RNC) Pattern: Normal: <= 5 Contractions in 10 Minutes (Celestina Robert, RNC) Resting Tone (Palpate): Relaxed (Celestina Robert, RNC) Monitor Mode: External US (Celestina Robert, RNC) FHR Baseline Rate : 130 (Celestina Robert, RNC) Variability: Moderate 6-25 bpm (Celestina Robert, RNC) Accelerations: 15X15 (Celestina Robert, RNC) Decelerations: None (Celestina Robert, RNC) Pitocin (milliunit): Pitocin Increased to (milliunits) @ 10 (Celestina Robert, RNC) Datetime: 04/19/2016 12:30 Monitor Mode: External; Palpation (Celestina Robert, RNC) Frequency (min): 2.5-4 (Celestina Robert, RNC) Quality: Mild (Celestina Robert, RNC) Duration (sec): 50-80 (Celestina Robert, RNC) Duration Criteria: Less than Two 120 Second Contractions (Celestina Robert, RNC) Pattern: Normal: <= 5 Contractions in 10 Minutes (Celestina Robert, RNC) Resting Tone (Palpate): Relaxed (Celestina Robert, RNC) Monitor Mode: External US (Celestina Robert, RNC) FHR Baseline Rate : 135 (Celestina Robert, RNC) Variability: Moderate 6-25 bpm (Celestina Robert, RNC) Accelerations: 15X15 (Celestina Robert, RNC) Decelerations: None (Celestina Robert, RNC) Datetime: 04/19/2016 12:15 Monitor Mode: External; Palpation (Celestina Robert, RNC) Frequency (min): 2-4 (Celestina Robert, RNC) Quality: Mild (Celestina Robert, RNC) Duration (sec): 50-80 (Celestina Robert, RNC) Duration Criteria: Less than Two 120 Second Contractions (Celestina Robert, RNC) Pattern: Normal: <= 5 Contractions in 10 Minutes (Celestina Robert, RNC) Resting Tone (Palpate): Relaxed (Celestina Robert, RNC) Monitor Mode: External US (Celestina Robert, RNC) FHR Baseline Rate : 135 (Celestina Robert, RNC) Variability: Moderate 6-25 bpm (Celestina Robert, RNC) Accelerations: 15X15 (Celestina Robert, RNC) Decelerations: None (Celestina Robert, RNC) Pitocin (milliunit): Pitocin Increased to (milliunits) @ 8 (Celestina Robert, RNC) Datetime: 04/19/2016 12:00 Monitor Mode: External; Palpation (Celestina Robert, RNC) Frequency (min): 2-4 (Celestina Robert, RNC) Quality: Mild (Celestina Robert, RNC) Duration (sec): 50-80 (Celestina Robert, RNC) Duration Criteria: Less than Two 120 Second Contractions (ARNOLDO Acosta) Pattern: Normal: <= 5 Contractions in 10 Minutes (ARNOLDO Acosta) Resting Tone (Palpate): Relaxed (ARNOLDO Acosta) Monitor Mode: External US (ARNOLDO Acosta) FHR Baseline Rate : 135 (ARNOLDO Acosta) Variability: Moderate 6-25 bpm (ARNOLDO Acosta) Accelerations: None (ARNOLDO Acosta) Decelerations: None (ARNOLDO Acosta) Pitocin (milliunit): Pitocin Increased to (milliunits) @ 6 (ARNOLDO Acosta)
--- NOTE | 2016-04-19 16:00 | L&D Flow Sheet ---
LD Flowsheet Datetime Report Generated by CPN: 04/19/2016 16:00 Datetime: 04/19/2016 15:57 NBP Sys/Zuleyma/Mean (mmHg): 141 (QS system process) : 87 (QS system process) : 110 (QS system process) Pulse: 88 (QS system process) LaborFlag: Antepartum (QS system process) Datetime: 04/19/2016 15:27 NBP Sys/Zuleyma/Mean (mmHg): 144 (QS system process) : 86 (QS system process) : 110 (QS system process) Pulse: 82 (QS system process) LaborFlag: Antepartum (QS system process) Datetime: 04/19/2016 15:17 NBP Sys/Zuleyma/Mean (mmHg): 141 (QS system process) : 91 (QS system process) : 113 (QS system process) Pulse: 86 (QS system process) LaborFlag: Antepartum (QS system process) Datetime: 04/19/2016 14:28 NBP Sys/Zuleyma/Mean (mmHg): 135 (QS system process) : 91 (QS system process) : 109 (QS system process) Pulse: 81 (QS system process) LaborFlag: Antepartum (QS system process) Datetime: 04/19/2016 14:00 Monitor Mode: External; Palpation (ARNOLDO Acosta) Frequency (min): 2-4 (ARNOLDO Acosta) Quality: Mild (ARNOLDO Acosta) Duration (sec): 50-80 (ARNOLDO Acosta) Duration Criteria: Less than Two 120 Second Contractions (ARNOLDO Acosta) Pattern: Normal: <= 5 Contractions in 10 Minutes (ARNOLDO Acosta) Resting Tone (Palpate): Relaxed (ARNOLDO Acosta) Monitor Mode: External US (ARNOLDO Acosta) FHR Baseline Rate : 135 (ARNOLDO Acosta) Variability: Moderate 6-25 bpm (ARNOLDO Acosta) Accelerations: None (ARNOLDO Acosta) Decelerations: None (ARNOLDO Acosta)
--- NOTE | 2016-04-19 18:01 | L&D Flow Sheet ---
LD Flowsheet Datetime Report Generated by CPN: 04/19/2016 18:00 Datetime: 04/19/2016 17:58 NBP Sys/Zuleyma/Mean (mmHg): 139 (QS system process) : 93 (QS system process) : 111 (QS system process) Pulse: 74 (QS system process) LaborFlag: Antepartum (QS system process) Datetime: 04/19/2016 17:15 Monitor Mode: External; Palpation (ARNOLDO Acosta) Frequency (min): 2.5-3 (Celestina Robert, RNC) Quality: Mild (Celestina Robert, RNC) Duration (sec): 60-90 (Celestina Robert, RNC) Duration Criteria: Less than Two 120 Second Contractions (Celestina Robert, RNC) Pattern: Normal: <= 5 Contractions in 10 Minutes (Celestina Robert, RNC) Resting Tone (Palpate): Relaxed (Celestina Robert, RNC) Monitor Mode: External US (Celestina Robert, RNC) FHR Baseline Rate : 135 (Celestina Robert, RNC) Variability: Moderate 6-25 bpm (Celestina Robert, RNC) Accelerations: 15X15 (Celestina Robert, RNC) Decelerations: None (Celestina Robert, RNC) Datetime: 04/19/2016 17:00 Monitor Mode: External; Palpation (Celestina Robert, RNC) Frequency (min): 2-2.5 (Celestina Robert, RNC) Quality: Mild (Celestina Robert, RNC) Duration (sec): 60-90 (Celestina Robert, RNC) Duration Criteria: Less than Two 120 Second Contractions (Celestina Robert, RNC) Pattern: Normal: <= 5 Contractions in 10 Minutes (Celestina Robert, RNC) Resting Tone (Palpate): Relaxed (Celestina Robert, RNC) Monitor Mode: External US (Celestina Robert, RNC) FHR Baseline Rate : 135 (Celestina Robert, RNC) Variability: Moderate 6-25 bpm (Celestina Robert, RNC) Accelerations: None (Celestina Robert, RNC) Decelerations: None (Celestina Robert, RNC) Pitocin (milliunit): Pitocin Increased to (milliunits) @ 18 (ARNOLDO Acosta) Datetime: 04/19/2016 16:57 NBP Sys/Zuleyma/Mean (mmHg): 145 (QS system process) : 96 (QS system process) : 116 (QS system process) Pulse: 75 (QS system process) LaborFlag: Antepartum (QS system process) Datetime: 04/19/2016 16:45 Monitor Mode: External; Palpation (ARNOLDO Acosta) Frequency (min): 2-2.5 (ARNOLDO Acosta) Quality: Mild (ARNOLDO Acosta) Duration (sec): 60-80 (ARNOLDO Acosta) Duration Criteria: Less than Two 120 Second Contractions (ARNOLDO Acosta) Pattern: Normal: <= 5 Contractions in 10 Minutes (ARNOLDO Acosta) Resting Tone (Palpate): Relaxed (ARNOLDO Acosta) Monitor Mode: External US (ARNOLDO Acosta) FHR Baseline Rate : 135 (ARNOLDO Acosta) Variability: Moderate 6-25 bpm (ARNOLDO Acosta) Accelerations: 15X15 (ARNOLDO Acosta) Decelerations: None (ARNOLDO Acosta) Datetime: 04/19/2016 16:40 NBP Sys/Zuleyma/Mean (mmHg): 154 (QS system process) : 90 (QS system process) : 114 (QS system process) Pulse: 74 (QS system process) LaborFlag: Antepartum (QS system process) Datetime: 04/19/2016 16:32 Dilatation (cm): 1.0 (ARNOLDO Acosta) Effacement (%): 50 (ARNOLDO Acosta) Station: -2 (ARNOLDO Acosta) Exam by: Daaynna MCLAUGHLIN (ARNOLDO Acosta) Vaginal Bleeding: None (ARNOLDO Acosta) Cervix, Position: Midposition (ARNOLDO Acosta) Antibiotics: Penicillin IV (Units) @ 2.5 Million (Celestina Robert, RNC) Datetime: 04/19/2016 16:30 Monitor Mode: External; Palpation (Celestina Robert, RNC) Frequency (min): 2-2.5 (Celestina Robert, RNC) Quality: Mild (Celestina Robert, RNC) Duration (sec): 60-90 (Celestina Robert, RNC) Duration Criteria: Less than Two 120 Second Contractions (Celestina Robert, RNC) Pattern: Normal: <= 5 Contractions in 10 Minutes (Celestina Robert, RNC) Resting Tone (Palpate): Relaxed (Celestina Robert, RNC) Monitor Mode: External US (Celestina Robert, RNC) FHR Baseline Rate : 135 (Celestina Rboert, RNC) Variability: Moderate 6-25 bpm (Celestina Robert, RNC) Accelerations: 15X15 (Celestina Robert, RNC) Decelerations: None (Celestina Robert, RNC) Datetime: 04/19/2016 16:28 NBP Sys/Zuleyma/Mean (mmHg): 186 (QS system process) : 115 (QS system process) : 145 (QS system process) Pulse: 76 (QS system process) LaborFlag: Antepartum (QS system process) Datetime: 04/19/2016 16:15 Monitor Mode: External; Palpation (Celestina Robert, RNC) Frequency (min): 2-2.5 (Celestina Robert, RNC) Quality: Mild (Celestina Robert, RNC) Duration (sec): 50-80 (Celestina Robert, RNC) Duration Criteria: Less than Two 120 Second Contractions (Celestina Robert, RNC) Pattern: Normal: <= 5 Contractions in 10 Minutes (Celestina Robert, RNC) Resting Tone (Palpate): Relaxed (Celestina Robert, RNC) Monitor Mode: External US (Celestina Robert, RNC) FHR Baseline Rate : 135 (Celestina Robert, RNC) Variability: Moderate 6-25 bpm (Celestina Robert, RNC) Accelerations: 15X15 (Celestina Robert, RNC) Decelerations: None (Celestina Robert, RNC) Datetime: 04/19/2016 16:00 Monitor Mode: External; Palpation (Celestina Robert, RNC) Frequency (min): 2-2.5 (ARNOLDO Acosta) Quality: Mild (ARNOLDO Acosta) Duration (sec): 60-90 (ARNOLDO Acosta) Duration Criteria: Less than Two 120 Second Contractions (ARNOLDO Acosta) Pattern: Normal: <= 5 Contractions in 10 Minutes (ARNOLDO Acosta) Resting Tone (Palpate): Relaxed (ARNOLDO Acosta) Monitor Mode: External US (ARNOLDO Acosta) FHR Baseline Rate : 135 (ARNOLDO Acosta) Variability: Moderate 6-25 bpm (ARNOLDO Acosta) Accelerations: 15X15 (ARNOLDO Acosta) Decelerations: None (ARNOLDO Acosta)
--- NOTE | 2016-04-19 20:00 | L&D Flow Sheet ---
LD Flowsheet Datetime Report Generated by CPN: 04/19/2016 20:00 Datetime: 04/19/2016 18:45 Communication Comments: Report to Dr. Palacios re: update on pt's status, orders for cervidil received after pt eats dinner. (Celestina Jones, RNC) Datetime: 04/19/2016 18:34 Comments: Monitors removed from abdomen per MD order. (Celestina Jones RNC) Pitocin (milliunit): Pitocin Discontinued (Celestina Robert, RNC) Datetime: 04/19/2016 18:30 Monitor Mode: External; Palpation (Celestina Robert, RNC) Frequency (min): 2-3.5 (Celestina Robert, RNC) Quality: Mild (Celestina Robert, RNC) Duration (sec): 50-90 (Celestina Robert, RNC) Duration Criteria: Less than Two 120 Second Contractions (Celestina Robert, RNC) Pattern: Normal: <= 5 Contractions in 10 Minutes (Celestina Robert, RNC) Resting Tone (Palpate): Relaxed (Celestina Robert, RNC) Monitor Mode: External US (Celestina Robert, RNC) FHR Baseline Rate : 135 (Celestina Robert, RNC) Variability: Moderate 6-25 bpm (Celestina Robert, RNC) Accelerations: 15X15 (Celestina Robert, RNC) Decelerations: None (Celestina Robert, RNC) Datetime: 04/19/2016 18:27 NBP Sys/Zuleyma/Mean (mmHg): 138 (QS system process) : 88 (QS system process) : 109 (QS system process) Pulse: 78 (QS system process) LaborFlag: Antepartum (QS system process) Datetime: 04/19/2016 18:15 Monitor Mode: External; Palpation (Celestina Robert, RNC) Frequency (min): 1.5-2 (Celestina Robert, RNC) Quality: Mild (Celestina Robert, RNC) Duration (sec): 50-80 (Celestina Robert, RNC) Duration Criteria: Less than Two 120 Second Contractions (Celestina Robert, RNC) Pattern: Normal: <= 5 Contractions in 10 Minutes (Celestina Robert, RNC) Resting Tone (Palpate): Relaxed (Celestina Robert, RNC) Monitor Mode: External US (Celestina Robert, RNC) FHR Baseline Rate : 135 (Celestina Robert, RNC) Variability: Moderate 6-25 bpm (Celesitna Robert, RNC) Accelerations: 15X15 (Celestina Robert, RNC) Decelerations: None (Celestina Robert, RNC) Datetime: 04/19/2016 18:00 Monitor Mode: External; Palpation (ARNOLDO Acosta) Frequency (min): 1.5-3 (ARNOLDO Acosta) Quality: Mild (ARNOLDO Acosta) Duration (sec): 60-80 (ARNOLDO Acosta) Duration Criteria: Less than Two 120 Second Contractions (ARNOLDO Acosta) Pattern: Normal: <= 5 Contractions in 10 Minutes (ARNOLDO Acosta) Resting Tone (Palpate): Relaxed (ARNOLDO Acosta) Monitor Mode: External US (ARNOLDO Acosta) FHR Baseline Rate : 135 (ARNOLDO Acosta) Variability: Moderate 6-25 bpm (ARNOLDO Acosta) Accelerations: 15X15 (ARNOLDO Acosta) Decelerations: None (ARNOLDO Acosta)
[2016-04-19] MEDS ORDERED: DINOPROSTONE 10 MG VAGINAL INSERT.SR ONE (20:38)
--- NOTE | 2016-04-19 22:00 | L&D Flow Sheet ---
LD Flowsheet Datetime Report Generated by CPN: 04/19/2016 22:00 Datetime: 04/19/2016 21:49 NBP Sys/Zuleyma/Mean (mmHg): 132 (QS system process) : 81 (QS system process) : 102 (QS system process) Pulse: 75 (QS system process) LaborFlag: Antepartum (QS system process) Datetime: 04/19/2016 21:18 NBP Sys/Zuleyma/Mean (mmHg): 129 (QS system process) : 77 (QS system process) : 98 (QS system process) Pulse: 75 (QS system process) LaborFlag: Antepartum (QS system process) Datetime: 04/19/2016 20:47 NBP Sys/Zuleyma/Mean (mmHg): 135 (QS system process) : 86 (QS system process) : 105 (QS system process) Pulse: 73 (QS system process) Respirations: 15 (Melinda Angelo RN) Temperature (F): 98.1 (Melinda Angelo, RN) Temperature (C): 36.7 (QS system process) LaborFlag: Antepartum (QS system process) Datetime: 04/19/2016 20:44 Cervical Ripening Agents: Cervidil (Melinda Stephens RN)
--- NOTE | 2016-04-20 08:01 | L&D Flow Sheet ---
LD Flowsheet Datetime Report Generated by CPN: 04/20/2016 08:00 Datetime: 04/20/2016 07:49 NBP Sys/Zuleyma/Mean (mmHg): 118 (QS system process) : 65 (QS system process) : 86 (QS system process) Pulse: 84 (QS system process) LaborFlag: Antepartum (QS system process) Datetime: 04/20/2016 07:19 NBP Sys/Zuleyma/Mean (mmHg): 118 (QS system process) : 62 (QS system process) : 83 (QS system process) Pulse: 89 (QS system process) Communication: Report Given to Aidee Monroe RN (Melinda Stephens RN) Communication Comments: Care relinquished at this time (Melinda Stephens RN) LaborFlag: Antepartum (QS system process) Datetime: 04/20/2016 07:00 Monitor Mode: External (Melinda Angelo, RN) Frequency (min): irregular (Melinda Angelo, RN) Quality: Mild (Melinda Angelo, RN) Duration (sec): 60-90 (Melinda Angelo, RN) Resting Tone (Palpate): Relaxed (Melinda Angelo, RN) Monitor Mode: External US (Melinda Angelo, RN) FHR Baseline Rate : 135 (Melinda Angelo, RN) Variability: Moderate 6-25 bpm (Melinda Angelo, RN) Accelerations: 10X10 (Melinda Angelo, RN) Decelerations: None (Melinda Angelo, RN) Datetime: 04/20/2016 06:48 NBP Sys/Zuleyma/Mean (mmHg): 117 (QS system process) : 59 (QS system process) : 81 (QS system process) Pulse: 74 (QS system process) LaborFlag: Antepartum (QS system process) Datetime: 04/20/2016 06:30 Monitor Mode: External (Melinda Angelo, RN) Frequency (min): none (Melinda Angelo, RN) Quality: Mild (Melinda Angelo, RN) Resting Tone (Palpate): Relaxed (Melinda Angelo, RN) Monitor Mode: External US (Melinda Angelo, RN) FHR Baseline Rate : 135 (Melinda Angelo, RN) Variability: Moderate 6-25 bpm (Melinda Angelo, RN) Accelerations: None (Melinda Angelo, RN) Decelerations: None (Melinda Angelo, RN) Datetime: 04/20/2016 06:18 NBP Sys/Zuleyma/Mean (mmHg): 126 (QS system process) : 76 (QS system process) : 97 (QS system process) Pulse: 75 (QS system process) LaborFlag: Antepartum (QS system process) Datetime: 04/20/2016 06:02 I/O Interventions: Up to BR (Melinda Angelo, RN) Datetime: 04/20/2016 06:00 Monitor Mode: External (Melinda Angelo, RN) Frequency (min): Irregular (Melinda Angelo, RN) Quality: Mild (Melinda Angelo, RN) Duration (sec): 60-120 (Melinda Angelo, RN) Resting Tone (Palpate): Relaxed (Melinda Angelo, RN) Monitor Mode: External US (Melinda Angelo, RN) FHR Baseline Rate : 125 (Melinda Angelo, RN) Variability: Moderate 6-25 bpm (Melinda Angelo, RN) Accelerations: 15X15 (Melinda Angelo, RN) Decelerations: None (Melinda Angelo, RN) Datetime: 04/20/2016 05:49 NBP Sys/Zuleyma/Mean (mmHg): 146 (QS system process) : 90 (QS system process) : 112 (QS system process) Pulse: 80 (QS system process) LaborFlag: Antepartum (QS system process) Datetime: 04/20/2016 05:30 Monitor Mode: External (Melinda Angelo, RN) Frequency (min): None noted (Melinda Angelo, RN) Resting Tone (Palpate): Relaxed (Melinda Angelo, RN) Monitor Mode: External US (Melinda Angelo, RN) FHR Baseline Rate : 130 (Melinda Angelo, RN) Variability: Moderate 6-25 bpm (Melinda Angelo, RN) Accelerations: None (Melinda Angelo, RN) Decelerations: None (Melinda Angelo, RN) Datetime: 04/20/2016 05:18 NBP Sys/Zuleyma/Mean (mmHg): 135 (QS system process) : 85 (QS system process) : 103 (QS system process) Pulse: 70 (QS system process) LaborFlag: Antepartum (QS system process) Datetime: 04/20/2016 05:01 I/O Interventions: Up to BR (Melinda Angelo, RN) Datetime: 04/20/2016 05:00 Monitor Mode: External (Melinda Angelo, RN) Frequency (min): irregular (Melinda Angelo, RN) Quality: Mild (Melinda Angelo, RN) Duration (sec): 50-90 (Melinda Angelo, RN) Resting Tone (Palpate): Relaxed (Melinda Angelo, RN) Monitor Mode: External US (Melinda Angelo, RN) FHR Baseline Rate : 130 (Melinda Angelo, RN) Variability: Moderate 6-25 bpm (Melinda Angelo, RN) Accelerations: 10X10 (Melinda Angelo, RN) Decelerations: None (Melinda Angelo, RN) Datetime: 04/20/2016 04:48 NBP Sys/Zuleyma/Mean (mmHg): 135 (QS system process) : 80 (QS system process) : 103 (QS system process) Pulse: 75 (QS system process) LaborFlag: Antepartum (QS system process) Datetime: 04/20/2016 04:30 Monitor Mode: External (Melinda Angelo, RN) Frequency (min): Irregular (Melinda Angelo, RN) Quality: Mild (Melinda Angelo, RN) Duration (sec): 50-90 (Melinda Angelo, RN) Resting Tone (Palpate): Relaxed (Melinda Angelo, RN) Monitor Mode: External US (Melinda Angelo, RN) FHR Baseline Rate : 125 (Melinda Angelo, RN) Variability: Moderate 6-25 bpm (Melinda Angelo, RN) Accelerations: 15X15 (Melinda Angelo, RN) Decelerations: None (Melinda Angelo, RN) Datetime: 04/20/2016 04:18 NBP Sys/Zuleyma/Mean (mmHg): 126 (QS system process) : 74 (QS system process) : 95 (QS system process) Pulse: 77 (QS system process) LaborFlag: Antepartum (QS system process) Datetime: 04/20/2016 04:00 Monitor Mode: External (Melinda Angelo, RN) Frequency (min): Irregular (Melinda Angelo, RN) Quality: Mild (Melinda Angelo, RN) Duration (sec): 50-60 (Melinda Angelo, RN) Resting Tone (Palpate): Relaxed (Mleinda Angelo, RN) Monitor Mode: External US (Melinda Angelo, RN) FHR Baseline Rate : 125 (Melinda Angelo, RN) Variability: Moderate 6-25 bpm (Melinda Angelo, RN) Accelerations: None (Melinda Angelo, RN) Decelerations: None (Melinda Angelo, RN) Datetime: 04/20/2016 03:50 NBP Sys/Zuleyma/Mean (mmHg): 131 (QS system process) : 78 (QS system process) : 99 (QS system process) Pulse: 92 (QS system process) LaborFlag: Antepartum (QS system process) Datetime: 04/20/2016 03:30 Monitor Mode: External (Melinda Angelo, RN) Frequency (min): Irregular (Melinda Angelo, RN) Quality: Mild (Melinda Angelo, RN) Duration (sec): 50-80 (Melinda Angelo, RN) Resting Tone (Palpate): Relaxed (Melinda Angelo, RN) Monitor Mode: External US (Melinda Angelo, RN) FHR Baseline Rate : 125 (Melinda Angelo, RN) Variability: Moderate 6-25 bpm (Melinda Angelo, RN) Accelerations: 10X10 (Melinda Angelo, RN) Decelerations: None (Melinda Angelo, RN) Datetime: 04/20/2016 03:18 NBP Sys/Zuleyma/Mean (mmHg): 121 (QS system process) : 70 (QS system process) : 88 (QS system process) Pulse: 81 (QS system process) LaborFlag: Antepartum (QS system process) Datetime: 04/20/2016 03:00 Monitor Mode: External (Melinda Angelo, RN) Frequency (min): x2 (Melinda Angelo, RN) Quality: Mild (Melinda Angelo, RN) Duration (sec): 60-80 (Melinda Angelo, RN) Resting Tone (Palpate): Relaxed (Melinda Angelo, RN) Monitor Mode: External US (Melinda Angelo, RN) FHR Baseline Rate : 125 (Melinda Angelo, RN) Variability: Moderate 6-25 bpm (Melinda Angelo, RN) Accelerations: None (Melinda Angelo, RN) Decelerations: None (Melinda Angelo, RN) Datetime: 04/20/2016 02:48 NBP Sys/Zuleyma/Mean (mmHg): 126 (QS system process) : 75 (QS system process) : 96 (QS system process) Pulse: 78 (QS system process) LaborFlag: Antepartum (QS system process) Datetime: 04/20/2016 02:30 Monitor Mode: External (Melinda Angelo, RN) Frequency (min): x3 (Melinda Angelo, RN) Quality: Mild (Melinda Angelo, RN) Duration (sec): 60-90 (Melinda Angelo, RN) Resting Tone (Palpate): Relaxed (Meilnda Angelo, RN) Monitor Mode: External US (Melinda Angelo, RN) FHR Baseline Rate : 130 (Melinda Angelo, RN) Variability: Moderate 6-25 bpm (Melinda Angelo, RN) Accelerations: 15X15 (Melinda Angelo, RN) Decelerations: None (Melinda Angelo, RN) Datetime: 04/20/2016 02:19 NBP Sys/Zuleyma/Mean (mmHg): 130 (QS system process) : 83 (QS system process) : 102 (QS system process) Pulse: 77 (QS system process) LaborFlag: Antepartum (QS system process) Datetime: 04/20/2016 02:00 Monitor Mode: External (Melinda Angelo, RN) Frequency (min): None (Melinda Angelo, RN) Resting Tone (Palpate): Relaxed (Melinda Angelo, RN) Monitor Mode: External US (Melinda Angelo, RN) FHR Baseline Rate : 130 (Melinda Angelo, RN) Variability: Moderate 6-25 bpm (Melinda Angelo, RN) Accelerations: 15X15 (Melinda Angelo, RN) Decelerations: None (Melinda Angelo, RN) Datetime: 04/20/2016 01:48 NBP Sys/Zuleyma/Mean (mmHg): 128 (QS system process) : 76 (QS system process) : 97 (QS system process) Pulse: 71 (QS system process) LaborFlag: Antepartum (QS system process) Datetime: 04/20/2016 01:30 Monitor Mode: External (Melinda Angelo, RN) Frequency (min): None (Melinda Angelo, RN) Resting Tone (Palpate): Relaxed (Melinda Angelo, RN) Monitor Mode: External US (Melinda Angelo, RN) FHR Baseline Rate : 130 (Melinda Angelo, RN) Variability: Moderate 6-25 bpm (Melinda Angelo, RN) Accelerations: 15X15 (Melinda Angelo, RN) Decelerations: None (Melinda Angelo, RN) Datetime: 04/20/2016 01:18 NBP Sys/Zuleyma/Mean (mmHg): 112 (QS system process) : 64 (QS system process) : 79 (QS system process) Pulse: 72 (QS system process) LaborFlag: Antepartum (QS system process) Datetime: 04/20/2016 01:00 Monitor Mode: External (Melinda Angelo, RN) Frequency (min): None (Melinda Angelo, RN) Quality: Mild (Melinda Angelo, RN) Resting Tone (Palpate): Relaxed (Melinda Angelo, RN) Monitor Mode: External US (Melinda Angelo, RN) FHR Baseline Rate : 130 (Melinda Angelo, RN) Variability: Moderate 6-25 bpm (Melinda Angelo, RN) Accelerations: 15X15 (Melinda Angelo, RN) Decelerations: None (Melinda Angelo, RN) Datetime: 04/20/2016 00:48 NBP Sys/Zuleyma/Mean (mmHg): 110 (QS system process) : 58 (QS system process) : 79 (QS system process) Pulse: 67 (QS system process) LaborFlag: Antepartum (QS system process) Datetime: 04/20/2016 00:34 I/O Interventions: Up to BR (Melinda Angelo, RN) Datetime: 04/20/2016 00:30 Monitor Mode: External (Melinda Angelo, RN) Frequency (min): Irregular (Melinda Angelo, RN) Quality: Mild (Melinda Angelo, RN) Duration (sec): 60-120 (Melinda Angelo, RN) Resting Tone (Palpate): Relaxed (Melinda Angelo, RN) Monitor Mode: External US (Melinda Angelo, RN) FHR Baseline Rate : 125 (Melinda Angelo, RN) Variability: Moderate 6-25 bpm (Melinda Angelo, RN) Accelerations: 15X15 (Melinda Angelo, RN) Decelerations: None (Melinda Angelo, RN) Datetime: 04/20/2016 00:19 NBP Sys/Zuleyma/Mean (mmHg): 134 (QS system process) : 84 (QS system process) : 104 (QS system process) Pulse: 72 (QS system process) LaborFlag: Antepartum (QS system process) Datetime: 04/20/2016 00:00 Monitor Mode: External (Melinda Angelo, RN) Frequency (min): 6-8 (Melinda Angelo, RN) Quality: Mild (Melinda Angelo, RN) Duration (sec): 100-180 (Melinda Angelo, RN) Resting Tone (Palpate): Relaxed (Melinda Angelo, RN) Monitor Mode: External US (Melinda Angelo, RN) FHR Baseline Rate : 135 (Melinda Angelo, RN) Variability: Moderate 6-25 bpm (Melinda Angelo, RN) Accelerations: None (Melinda Angelo, RN) Decelerations: None (Melinda Angelo, RN) Datetime: 04/19/2016 23:49 NBP Sys/Zuleyma/Mean (mmHg): 137 (QS system process) : 86 (QS system process) : 107 (QS system process) Pulse: 62 (QS system process) LaborFlag: Antepartum (QS system process) Datetime: 04/19/2016 23:30 Monitor Mode: External (Melinda Angelo, RN) Frequency (min): None (Melinda Angelo, RN) Resting Tone (Palpate): Relaxed (Melinda Angelo, RN) Monitor Mode: External US (Melinda Angelo, RN) FHR Baseline Rate : 125 (Melinda Angelo, RN) Variability: Moderate 6-25 bpm (Melinda Angelo, RN) Accelerations: 15X15 (Melinda Angelo, RN) Decelerations: None (Melinda Angelo, RN) Datetime: 04/19/2016 23:23 I/O Interventions: Up to BR (Melinda Angelo, RN) Datetime: 04/19/2016 23:20 NBP Sys/Zuleyma/Mean (mmHg): 143 (QS system process) : 91 (QS system process) : 113 (QS system process) Pulse: 64 (QS system process) LaborFlag: Antepartum (QS system process) Datetime: 04/19/2016 23:00 Monitor Mode: External (Melinda Angelo, RN) Frequency (min): None (Melinda Angelo, RN) Resting Tone (Palpate): Relaxed (Melinda Angelo, RN) Monitor Mode: External US (Melinda Angelo, RN) FHR Baseline Rate : 125 (Melinda Angelo, RN) Variability: Moderate 6-25 bpm (Melinda Angelo, RN) Accelerations: 15X15 (Melinda Angelo, RN) Decelerations: None (Melinda Angelo, RN) Datetime: 04/19/2016 22:48 NBP Sys/Zuleyma/Mean (mmHg): 108 (QS system process) : 65 (QS system process) : 81 (QS system process) Pulse: 75 (QS system process) LaborFlag: Antepartum (QS system process) Datetime: 04/19/2016 22:30 Monitor Mode: External (Melinda Angelo, RN) Frequency (min): None detected (Melinda Angelo, RN) Resting Tone (Palpate): Relaxed (Melinda Angelo, RN) Monitor Mode: External US (Melinda Angelo, RN) FHR Baseline Rate : 130 (Melinda Angelo, RN) Variability: Moderate 6-25 bpm (Melinda Angelo, RN) Accelerations: None (Melinda Angelo, RN) Decelerations: None (Melinda Angelo, RN) Datetime: 04/19/2016 22:18 NBP Sys/Zuleyma/Mean (mmHg): 108 (QS system process) : 61 (QS system process) : 79 (QS system process) Pulse: 69 (QS system process) LaborFlag: Antepartum (QS system process) Datetime: 04/19/2016 22:00 Monitor Mode: External (Melinda Angelo, RN) Frequency (min): Irregular (Melinda Angelo, RN) Quality: Mild (Melinda Angelo, RN) Duration (sec): 60-150 (Melinda Angelo, RN) Resting Tone (Palpate): Relaxed (Melinda Angelo, RN) Monitor Mode: External US (Melinda tSephens RN) FHR Baseline Rate : 140 (Melinda Stephens RN) Variability: Moderate 6-25 bpm (Melinda Stephens RN) Accelerations: 15X15 (Melinda Stephens RN) Decelerations: None (Melinda Stephens RN)
[2016-04-20] MEDS ORDERED: PENICILLIN G-K 5 MILLION UNIT VIAL ONE ×3 (09:55→18:05)
--- NOTE | 2016-04-20 09:56 | L&D Progress Notes ---
PROGRESS NOTES Datetime Report Generated by CPN: 04/20/2016 09:56 PROGRESS NOTE Informed Consent Obtained: Vaginal Delivery; Induction of Labor; Risks, Benefits and Alternatives Discussed Vital Signs : Reviewed Comment: 25 yo here for iol EDC 05/10/16 EGA 37.1 GHTN GBS positive Hyperthyroid +ct in Obesity abdomen soft and nontender FHTs 130s and reactive pitocin started per protocol r/b/a reviewed anticipate gbs prophylaxis VAGINAL EXAM Dilatation: 2 Dilatation: 1 Effacement: 25 Station: -3 Contractions: rare MEMBRANES Membranes: Intact FETUS A Monitoring: External US Variability: Moderate 6-25bpm Accelerations: 15X15 Decelerations: None Estimated Weight (gm): 3049 Presentation: Vertex SIGNATURE SIGNATURE: [id number] SIGNATURE: [id number] Assignment: Alfonzo Colón MD Signature: with User ID: [email or web address] : with User ID: [email or web address]
--- NOTE | 2016-04-20 10:01 | L&D Flow Sheet ---
LD Flowsheet Datetime Report Generated by CPN: 04/20/2016 10:00 Datetime: 04/20/2016 09:46 Stage of : Antepartum (Willa Teran RN) Monitor Mode: External (Willa Teran RN) Frequency (min): X1 (Willa Teran RN) Quality: Mild (Willa Teran RN) Duration (sec): 70 (Willa Teran RN) Resting Tone (Palpate): Relaxed (Willa Teran RN) Monitor Mode: External US (Willa Teran RN) Monitor Interventions for FHR: Ultrasound Adjusted (Willa Teran RN) FHR Baseline Rate : 135 (Willa Teran RN) FHR Baseline Changes: No Baseline Change (Willa Teran RN) Variability: Moderate 6-25 bpm (Willa Teran RN) Accelerations: 15X15 (Willa Teran RN) Decelerations: None (Willa Yaneth Roulund, RN) Pain Relief Measures: Comfort Measures (Willa Teran, RN) Pain Coping: Talking Through Contractions (Willa Teran, RN) Pitocin (milliunit): Pitocin Started (milliunits) @ 2 (Willa Teran, RN) IV/Blood Work: IV Infusing per Order (Willa Teran, RN) Patient Position/Activity: Left Tilt; Low Fowlers (Willa Teran, RN) Communication: RN at Bedside; RN Reviewed Strip (Willa Teran RN) LaborFlag: Antepartum (QS system process) Datetime: 04/20/2016 09:38 Dilatation (cm): 1.5 (Willa Teran RN) Effacement (%): 70 (Willa Teran, RN) Station: -1 (Willa Teran, RN) Exam by: Nadeem MAYERS CNM (Willa Teran, RN) Vaginal Bleeding: None (Willa Teran RN) Cervix, Consistency: Soft (Willa Teran, RN) Cervix, Position: Midposition (Willa Teran, RN) Procedures: Sterile Vag Exam (Willa Teran, RN) Provider Reviewed Strip: Yes (Willa Teran, DAYRON) Instructional Method: Verbal; Patient Instructed; Verbalized Understanding (Willa eTran, DAYRON) Plan of Care: Plan of Care Discussed; Induction (Willa Teran RN) Labor/Induction: Induction (Willa Teran, DAYRON) Pain Management: Pain Scale/Goals; Comfort Measures (Willa Teran RN) Medications: Pitocin (Willa Teran RN) Communication: RN at Bedside; RN Reviewed Strip; Provider at Bedside (Willa Teran RN) Datetime: 04/20/2016 09:36 Stage of : Antepartum (Willa Teran RN) Communication: RN at Bedside; RN Reviewed Strip; Provider at Bedside (Willa Teran RN) Datetime: 04/20/2016 09:33 Stage of : Antepartum (Willa Teran RN) Respirations: 16 (Willa Teran RN) Temperature (F): 97.9 (Willa Teran RN) Temperature (C): 36.6 (QS system process) Monitor Mode: External (Willa Teran RN) Resting Tone (Palpate): Relaxed (Willa Teran RN) Monitor Mode: External US (Willa Teran RN) Monitor Interventions for FHR: Ultrasound Adjusted (Willa Teran RN) FHR Baseline Rate : 135 (Willa Teran, RN) Pain Presence: None/Denies (Willa Teran, DAYRON) Pain Type: N/A (Willa Teran, DAYRON) Pain Relief Measures: Comfort Measures (Willa Teran, RN) Membrane Status: Intact (Willa Teran, RN) Oxygen Method: Room Air (Willa Teran, DAYRON) Patient Position/Activity: Left Tilt; Low Fowlers (Willa Teran, RN) I/O Interventions: Up to BR (Willa Teran, RN) Instructional Method: Verbal; Patient Instructed; Verbalized Understanding (Willa Teran RN) Plan of Care: Plan of Care Discussed; Induction (Willa Teran RN) Labor/Induction: Induction (Willa Teran, RN) Pain Management: Pain Scale/Goals; Comfort Measures (Willa Teran, DAYRON) Communication: RN at Bedside; RN Reviewed Strip (Willa Teran RN) LaborFlag: Antepartum (QS system process) Datetime: 04/20/2016 09:31 NBP Sys/Zuleyma/Mean (mmHg): 133 (QS system process) : 86 (QS system process) : 104 (QS system process) Pulse: 78 (QS system process) LaborFlag: Antepartum (QS system process) Datetime: 04/20/2016 08:01 Stage of : Antepartum (Willa Teran RN) Respirations: 18 (Willa Teran, RN) Monitor Mode: External (Willa Trean, RN) Monitor Interventions for UA: [place] Adjusted (Willa Teran, RN) Frequency (min): IRREG (Willa Teran, RN) Quality: Mild (Willa Teran, RN) Duration (sec): 60-90 (Willa Teran, RN) Resting Tone (Palpate): Relaxed (Willa Teran, DAYRON) Monitor Mode: External US (Willa Teran, RN) Monitor Interventions for FHR: Ultrasound Adjusted (Willa Teran, RN) FHR Baseline Rate : 135 (Willa Teran RN) FHR Baseline Changes: No Baseline Change (Willa Teran RN) Variability: Moderate 6-25 bpm (Willa Teran, RN) Accelerations: None (Willa Teran, DAYRON) Decelerations: None (Willa Teran, DAYRON) Pain Relief Measures: Comfort Measures (Willa Teran RN) Pain Coping: Sleeping (Willa Teran, DAYRON) Comfort Measures: Family Support (Willa Teran, DAYRON) I/O Interventions: Up to BR (Willa Teran, DAYRON) Communication: RN Reviewed Strip (Willa Teran RN) LaborFlag: Antepartum (QS system process)
[2016-04-20] MEDS: PENICILLIN G-K 5 MILLION UNIT VIAL IV SCH ×3 (10:04→18:11)
--- NOTE | 2016-04-20 12:01 | L&D Flow Sheet ---
LD Flowsheet Datetime Report Generated by CPN: 04/20/2016 12:00 Datetime: 04/20/2016 11:45 Stage of : Labor (Willa Teran RN) Respirations: 18 (Willa Teran RN) Monitor Mode: External (Willa Teran RN) Frequency (min): 1.5-2.5 (Willa Teran RN) Quality: Mild/Moderate (Willa Teran RN) Duration (sec): 70-130 (Willa Teran RN) Resting Tone (Palpate): Relaxed (Willa Teran RN) Monitor Mode: External US (Willa Teran RN) FHR Baseline Rate : 140 (Willa Teran RN) FHR Baseline Changes: No Baseline Change (Willa Teran RN) Variability: Minimal - Undetectable to <=5 bpm (Willa Teran RN) Accelerations: None (Willa Teran RN) Decelerations: None (Willa Teran RN) Pain Relief Measures: Comfort Measures (Willa Teran, RN) Pain Coping: Talking Through Contractions (Willa Teran, DAYRON) Pitocin (milliunit): Pitocin Increased to (milliunits) @ 14 (Willa Teran, RN) IV/Blood Work: IV Infusing per Order (Willa Teran, RN) Patient Position/Activity: Left Tilt (Willa Teran, RN) Patient Position/Activity: Semi-Fowlers (Willa Teran, RN) Comfort Measures: Family Support (Willa Teran, DAYRON) Communication: RN at Bedside; RN Reviewed Strip (Willa Teran RN) LaborFlag: Labor (QS system process) Datetime: 04/20/2016 11:31 NBP Sys/Zuleyma/Mean (mmHg): 130 (QS system process) : 86 (QS system process) : 103 (QS system process) Pulse: 90 (QS system process) LaborFlag: Labor (QS system process) Datetime: 04/20/2016 11:30 Stage of : Labor (Willa Teran, RN) Respirations: 18 (Willa Teran, RN) Monitor Mode: External (Willa Teran, RN) Monitor Interventions for UA: [place] Adjusted (Willa Teran, RN) Frequency (min): 1.5-3 (Willa Teran, RN) Quality: Mild/Moderate (Willa Teran, RN) Duration (sec): 60-120 (Willa Teran, RN) Resting Tone (Palpate): Relaxed (Willa Teran, RN) Monitor Mode: External US (Willa Teran, RN) Monitor Interventions for FHR: Ultrasound Adjusted (Willa Teran, RN) FHR Baseline Rate : 145 (Willa Teran, RN) FHR Baseline Changes: No Baseline Change (Willa Teran, RN) Variability: Minimal - Undetectable to <=5 bpm (Willa Teran, DAYRON) Accelerations: None (Willa Teran, RN) Decelerations: None (Willa Teran, RN) Pain Relief Measures: Comfort Measures (Willa Teran, DAYRON) Pain Coping: Talking Through Contractions (Willa Teran, RN) Pitocin (milliunit): Pitocin Increased to (milliunits) @ 12 (Willa Teran, RN) IV/Blood Work: IV Infusing per Order (Willa Teran, RN) Patient Position/Activity: Semi-Fowlers (Willa Teran, RN) Comfort Measures: Family Support (Willa Teran, RN) Communication: RN at Bedside; RN Reviewed Strip (Willa Teran, DAYRON) LaborFlag: Labor (QS system process) Datetime: 04/20/2016 11:11 Stage of : Labor (Willa Teran, DAYRON) Monitor Mode: External (Willa Teran, RN) Monitor Interventions for UA: [place] Adjusted (Willa Teran, RN) Frequency (min): 2.5-3 (Willa Teran, RN) Quality: Mild/Moderate (Willa Teran, RN) Duration (sec): 70-90 (Willa Teran, RN) Resting Tone (Palpate): Relaxed (Willa Teran, RN) Monitor Mode: External US (Willa Teran, RN) Monitor Interventions for FHR: Ultrasound Adjusted (Willa Teran, ADYRON) FHR Baseline Rate : 145 (Willa Teran, DAYRON) FHR Baseline Changes: No Baseline Change (Willa Teran, RN) Variability: Moderate 6-25 bpm (Willa Teran, RN) Accelerations: 15X15 (Willa Teran, RN) Decelerations: None (Willa Teran, RN) Pain Relief Measures: Comfort Measures (Willa Teran, DAYRON) Pain Coping: Talking Through Contractions (Willa Teran, DAYRON) Pitocin (milliunit): Pitocin Remains (milliunits) @ 10 (Willa Teran, RN) Patient Position/Activity: Right Lateral; Low Fowlers (Willa Teran, RN) Comfort Measures: Family Support (Willa Teran, DAYRON) I/O Interventions: Up to BR (Willa Teran, DAYRON) Communication: RN at Bedside; RN Reviewed Strip (Willa Teran, DAYRON) LaborFlag: Labor (QS system process) Datetime: 04/20/2016 11:02 Stage of : Labor (Willa Teran RN) NBP Sys/Zuleyma/Mean (mmHg): 141 (QS system process) : 83 (QS system process) : 107 (QS system process) Pulse: 96 (QS system process) Monitor Mode: External (Willa Teran RN) Monitor Interventions for UA: [place] Adjusted (Willa Teran RN) Frequency (min): 4-4.5 (Willa Teran RN) Quality: Mild/Moderate (Willa Teran RN) Duration (sec): 70-90 (Willa Teran, DAYRON) Resting Tone (Palpate): Relaxed (Willa Teran, DAYRON) Monitor Mode: External US (Willa Teran RN) Monitor Interventions for FHR: Ultrasound Adjusted (Willa Teran RN) FHR Baseline Rate : 145 (Willa Teran RN) FHR Baseline Changes: No Baseline Change (Willa Teran RN) Variability: Minimal - Undetectable to <=5 bpm (Willa Teran RN) Accelerations: None (Willa Teran, DAYRON) Decelerations: None (Willa Teran, DAYRON) Pain Relief Measures: Comfort Measures (Willa Teran RN) Pain Coping: Talking Through Contractions; Breathing Through Contractions (Willa Teran, DAYRON) Pitocin (milliunit): Pitocin Increased to (milliunits) @ 10 (Willa Teran, DAYRON) IV/Blood Work: IV Infusing per Order (Willa Teran RN) Patient Position/Activity: Right Lateral; Low Fowlers (Willa Teran RN) Communication: RN at Bedside; RN Reviewed Strip (Willa Teran RN) LaborFlag: Labor (QS system process) Datetime: 04/20/2016 10:46 Stage of : Labor (Willa Teran RN) Respirations: 18 (Willa Teran RN) Monitor Mode: External (Willa Teran RN) Frequency (min): 4-6 (Willa Teran RN) Quality: Mild/Moderate (Willa Teran RN) Duration (sec): 60-70 (Willa Teran RN) Resting Tone (Palpate): Relaxed (Willa Teran RN) Monitor Mode: External US (Willa Teran RN) FHR Baseline Rate : 135 (Willa Teran RN) FHR Baseline Changes: No Baseline Change (Willa Teran RN) Variability: Moderate 6-25 bpm (Willa Teran RN) Accelerations: 10X10 (Willa Teran RN) Decelerations: None (Willa Teran RN) Pain Scale: 2 (Willa Teran RN) Pain Presence: Intermittent (Willa Teran RN) Pain Type: Contraction (Willa Teran RN) Pain Location: Abdomen (Willa Teran RN) Pain Relief Measures: Comfort Measures (Willa Teran RN) Pain Coping: Talking Through Contractions; Breathing Through Contractions (Willa Teran RN) Pitocin (milliunit): Pitocin Increased to (milliunits) @ 8 (Willa Teran RN) IV/Blood Work: IV Infusing per Order (Willa Teran RN) Patient Position/Activity: Right Lateral; Low Fowlers (Willa Teran, DAYRON) Communication: RN at Bedside; RN Reviewed Strip (Willa Teran RN) LaborFlag: Labor (QS system process) Datetime: 04/20/2016 10:32 NBP Sys/Zuleyma/Mean (mmHg): 140 (QS system process) : 92 (QS system process) : 110 (QS system process) Pulse: 99 (QS system process) LaborFlag: Antepartum (QS system process) Datetime: 04/20/2016 10:30 Stage of : Antepartum (Willa Teran RN) Respirations: 18 (Willa Teran RN) Monitor Mode: External (Willa Teran RN) Frequency (min): IRREG (Willa Teran RN) Quality: Mild (Willa Teran, DAYRON) Duration (sec): 60-90 (Willa Teran, RN) Resting Tone (Palpate): Relaxed (Willa Teran, DAYRON) Monitor Mode: External US (Willa Teran RN) Monitor Interventions for FHR: Ultrasound Adjusted (Willa Teran RN) FHR Baseline Rate : 140 (Willa Teran RN) FHR Baseline Changes: No Baseline Change (Willa Teran RN) Variability: Minimal - Undetectable to <=5 bpm (Willa Teran, DAYRON) Accelerations: None (Willa Teran, DAYRON) Decelerations: None (Willa Teran, DAYRON) Pain Relief Measures: Comfort Measures (Willa Teran RN) Pain Coping: Talking Through Contractions (Willa Teran, DAYRON) Pitocin (milliunit): Pitocin Increased to (milliunits) @ 6 (Willa Teran, DAYRON) Patient Position/Activity: Right Lateral; Low Fowlers (Willa Teran, DAYRON) Communication: RN at Bedside; RN Reviewed Strip (Willa Teran RN) LaborFlag: Antepartum (QS system process) Datetime: 04/20/2016 10:22 Stage of : Antepartum (Willa Teran, DAYRON) Monitor Interventions for UA: [place] Adjusted (Willa Teran RN) Monitor Interventions for FHR: Ultrasound Adjusted (Willa Teran RN) Communication: RN at Bedside; RN Reviewed Strip (Willa Teran RN) Datetime: 04/20/2016 10:15 Stage of : Antepartum (Willa Teran RN) Respirations: 18 (Willa Teran RN) Monitor Mode: External (Willa Teran RN) Monitor Interventions for UA: [place] Adjusted (Willa Teran RN) Frequency (min): IRREG (Willa Teran RN) Quality: Mild (Willa Teran RN) Duration (sec): 60-100 (Willa Teran RN) Resting Tone (Palpate): Relaxed (Willa Teran RN) Monitor Mode: External US (Willa Teran RN) Monitor Interventions for FHR: Ultrasound Adjusted (Willa Teran RN) FHR Baseline Rate : 135 (Willa Teran RN) FHR Baseline Changes: No Baseline Change (Willa Teran RN) Variability: Moderate 6-25 bpm (Willa Teran RN) Accelerations: 15X15 (Willa Teran RN) Decelerations: None (Willa Teran RN) Pain Scale: 0 (Willa Teran RN) Pain Presence: None/Denies (Willa Teran RN) Pain Type: N/A (Willa Teran RN) Pain Relief Measures: Comfort Measures (Willa Teran RN) Pain Coping: Talking Through Contractions (Willa Yaneth Roulund, RN) Pitocin (milliunit): Pitocin Increased to (milliunits) @ 4 (Willa Teran, DAYRON) Patient Position/Activity: Right Lateral; Low Fowlers (Willa Teran, DAYRON) Comfort Measures: Hot/Cold Pack (Willa Teran, DAYRON) Communication: RN at Bedside; RN Reviewed Strip (Willa Teran RN) LaborFlag: Antepartum (QS system process) Datetime: 04/20/2016 10:01 Stage of : Antepartum (Willa Teran RN) NBP Sys/Zuleyma/Mean (mmHg): 132 (QS system process) : 83 (QS system process) : 103 (QS system process) Pulse: 83 (QS system process) Respirations: 18 (Willa Teran RN) Monitor Mode: External (Willa Teran RN) Frequency (min): IRREG (Willa Teran RN) Quality: Mild (Willa Teran RN) Duration (sec): 90-120 (Willa Teran, DAYRON) Resting Tone (Palpate): Relaxed (Willa Teran, DAYRON) Monitor Mode: External US (Willa Teran RN) FHR Baseline Rate : 135 (Willa Teran RN) FHR Baseline Changes: No Baseline Change (Willa Teran RN) Variability: Moderate 6-25 bpm (Willa Teran RN) Accelerations: 15X15 (Willa Teran RN) Decelerations: None (Willa Teran RN) Pain Scale: 0 (Willa Teran, DAYRON) Pain Presence: Intermittent (Willa Teran, RN) Pain Type: Cramping (Willa Teran, RN) Pain Location: Abdomen (Willa Teran, RN) Pain Relief Measures: Comfort Measures (Willa Teran, DAYRON) Pain Coping: Talking Through Contractions (Willa Teran, DAYRON) Pitocin (milliunit): Pitocin Remains (milliunits) @ 2 (Willa Teran, DAYRON) IV/Blood Work: IV Infusing per Order (Willa Teran, DAYRON) Patient Position/Activity: Left Tilt; Low Fowlers (Willa Teran, DAYRON) Communication: RN at Bedside; RN Reviewed Strip (Willa Teran, DAYRON) LaborFlag: Antepartum (QS system process)
--- NOTE | 2016-04-20 14:01 | L&D Flow Sheet ---
LD Flowsheet Datetime Report Generated by CPN: 04/20/2016 14:00 Datetime: 04/20/2016 13:53 Pain Relief Measures: Comfort Measures (Willa Teran RN) Pain Coping: Breathing Through Contractions (Willa Teran RN) Comfort Measures: Breathing/Relaxation; Coaching; Rocking Chair; Family Support (Willa Teran RN) LaborFlag: Labor (QS system process) Datetime: 04/20/2016 13:45 Stage of : Labor (Willa Teran RN) Respirations: 20 (Willa Teran RN) Monitor Mode: External (Willa Teran RN) Frequency (min): 2-2.5 (Willa Teran RN) Quality: Moderate (Willa Teran RN) Duration (sec): 60-80 (Willa Teran RN) Resting Tone (Palpate): Relaxed (Willa Teran RN) Monitor Mode: External US (Willa Teran RN) FHR Baseline Rate : 135 (Willa Teran RN) FHR Baseline Changes: No Baseline Change (Willa Teran RN) Variability: Moderate 6-25 bpm (Willa Teran RN) Accelerations: 15X15 (Willa Teran RN) Decelerations: None (Willa Teran RN) Pain Relief Measures: Comfort Measures (Willa Teran RN) Pain Coping: Breathing Through Contractions (Willa Teran RN) Pitocin (milliunit): Pitocin Remains (milliunits) @ 20 (Willa Teran, DAYRON) IV/Blood Work: IV Infusing per Order (Willa Teran RN) Patient Position/Activity: Birthing Ball (Willa Teran, DAYRON) Comfort Measures: Breathing/Relaxation; Coaching; Family Support (Willa Teran RN) Communication: RN at Bedside; RN Reviewed Strip (Willa Teran RN) LaborFlag: Labor (QS system process) Datetime: 04/20/2016 13:31 NBP Sys/Zuleyma/Mean (mmHg): 163 (QS system process) : 107 (QS system process) : 130 (QS system process) Pulse: 95 (QS system process) LaborFlag: Labor (QS system process) Datetime: 04/20/2016 13:30 Stage of : Labor (Willa Teran RN) Respirations: 20 (Willa Teran RN) Monitor Mode: External (Willa Teran RN) Monitor Interventions for UA: [place] Adjusted (Willa Teran RN) Frequency (min): .5-2.5 (Willa Teran RN) Frequency (min): 1 (Willa Teran RN) Quality: Moderate (Willa Teran RN) Duration (sec): 60-70 (Willa Teran RN) Resting Tone (Palpate): Relaxed (Willa Teran RN) Monitor Mode: External US (Willa Teran RN) Monitor Interventions for FHR: Ultrasound Adjusted (Willa Teran RN) FHR Baseline Rate : 135 (Willa Teran RN) FHR Baseline Changes: No Baseline Change (Willa Teran RN) Variability: Moderate 6-25 bpm (Willa Teran RN) Accelerations: None (Willa Teran RN) Decelerations: None (Willa Teran RN) Pain Relief Measures: Comfort Measures (Willa Yaneth Roulund, RN) Pain Coping: Breathing Through Contractions (Willa Teran RN) Pitocin (milliunit): Pitocin Remains (milliunits) @ 20 (Willa Teran, RN) IV/Blood Work: IV Infusing per Order (Willa Teran, RN) Patient Position/Activity: Birthing Ball (Willa Teran, RN) Comfort Measures: Breathing/Relaxation; Coaching; Family Support (Willa Teran, RN) Communication: RN at Bedside; RN Reviewed Strip (Willa Teran RN) LaborFlag: Labor (QS system process) Datetime: 04/20/2016 13:15 Stage of : Labor (Willa Teran RN) Respirations: 20 (Willa Teran RN) Temperature (F): 98.3 (Willa Teran RN) Temperature (C): 36.8 (QS system process) Temperature Route: Oral (Willa Teran RN) Monitor Mode: External (Willa Teran, DAYRON) Monitor Interventions for UA: [place] Adjusted (Willa Teran, DAYRON) Frequency (min): 1.5-2.5 (Willa Teran, DAYRON) Quality: Moderate (Willa Teran RN) Duration (sec): 60-70 (Willa Teran, RN) Resting Tone (Palpate): Relaxed (iWlla Teran, DAYRON) Monitor Mode: External US (Willa Teran RN) Monitor Interventions for FHR: Ultrasound Adjusted (Willa Teran RN) FHR Baseline Rate : 135 (Willa Teran RN) FHR Baseline Changes: No Baseline Change (Willa Teran RN) Variability: Moderate 6-25 bpm (Willa Teran RN) Accelerations: 15X15 (Willa Teran RN) Decelerations: None (Willa Teran RN) Pain Scale: 3 (Willa Teran, DAYRON) Pain Presence: Intermittent (Willa Teran RN) Pain Type: Contraction (Willa Teran RN) Pain Location: Abdomen (Willa Teran, RN) Pain Relief Measures: Comfort Measures (Willa Teran RN) Pain Coping: Breathing Through Contractions (Willa Teran, DAYRON) Pitocin (milliunit): Pitocin Remains (milliunits) @ 20 (Willa Teran, DAYRON) IV/Blood Work: IV Infusing per Order (Willa Teran, DAYRON) Patient Position/Activity: Birthing Ball (Willa Teran, DAYRON) Comfort Measures: Breathing/Relaxation; Coaching; Family Support (Willa Teran, DAYRON) Communication: RN at Bedside; RN Reviewed Strip (Willa Teran, DAYRON) LaborFlag: Labor (QS system process) Datetime: 04/20/2016 13:03 NBP Sys/Zuleyma/Mean (mmHg): 159 (QS system process) : 87 (QS system process) : 116 (QS system process) Pulse: 83 (QS system process) LaborFlag: Labor (QS system process) Datetime: 04/20/2016 12:49 Stage of : Labor (Willa Teran RN) Dilatation (cm): 3.0 (Roya Medrano RN) Effacement (%): 70 (Roya Medrano RN) Station: -2 (Roya Medrano RN) Exam by: Damaris Mustafa CNM (Roya Medrano RN) Membrane Status: Ruptured (Roya Medrano RN) Membranes Rupture Method: Artificial (Roya Medrano RN) Amniotic Fluid Color: Clear (Roya Medrano RN) Amniotic Fluid Amount: Moderate (Roya Medrano RN) Amniotic Fluid Odor: Normal (Roya Medrano RN) Provider Reviewed Strip: Yes (Willa Teran RN) Instructional Method: Verbal; Patient Instructed; Family/Support Person Instructed; Verbalized Understanding (Willa Teran RN) Plan of Care: Plan of Care Discussed (Willa Teran RN) Labor/Induction: Artificial Rupture of Membranes (Willa Teran RN) Communication: RN at Bedside; RN Reviewed Strip; Provider at Bedside (Willa Teran RN) Datetime: 04/20/2016 12:45 Stage of : Labor (Willa Teran, DAYRON) Respirations: 18 (Willa Teran RN) Monitor Mode: External (Willa Teran, RN) Monitor Interventions for UA: [place] Adjusted (Willa Teran RN) Frequency (min): 2-2.5 (Willa Teran, DAYRON) Quality: Mild/Moderate (Willa Teran, RN) Duration (sec): 60-70 (Willa Teran, RN) Resting Tone (Palpate): Relaxed (Willa Teran, DAYRON) Monitor Mode: External US (Willa Teran RN) FHR Baseline Rate : 135 (Willa Teran, DAYRON) FHR Baseline Changes: No Baseline Change (Willa Teran, DAYRON) Variability: Moderate 6-25 bpm (Willa Teran, DAYRON) Accelerations: 15X15 (Willa Teran, RN) Decelerations: None (Willa Teran, DAYRON) Pain Relief Measures: Comfort Measures (Willa Teran RN) Pain Coping: Talking Through Contractions (Willa Teran, DAYRON) Pitocin (milliunit): Pitocin Remains (milliunits) @ 20 (Willa Teran, RN) IV/Blood Work: IV Infusing per Order (Willa Teran, DAYRON) Patient Position/Activity: Left Lateral; Low Fowlers (Willa Teran, RN) Comfort Measures: Family Support (Willa Teran, DAYRON) Communication: RN at Bedside; RN Reviewed Strip (Willa Teran RN) LaborFlag: Labor (QS system process) Datetime: 04/20/2016 12:33 NBP Sys/Zuleyma/Mean (mmHg): 126 (QS system process) : 64 (QS system process) : 89 (QS system process) Pulse: 81 (QS system process) LaborFlag: Labor (QS system process) Datetime: 04/20/2016 12:30 Stage of : Labor (Willa Teran RN) Respirations: 18 (Willa Teran RN) Monitor Mode: External (Willa Teran RN) Frequency (min): 2-2.5 (Willa Teran RN) Quality: Mild/Moderate (Willa Teran RN) Duration (sec): 60-70 (Willa Teran RN) Resting Tone (Palpate): Relaxed (Willa Teran RN) Monitor Mode: External US (Willa Teran RN) FHR Baseline Rate : 145 (Willa Teran RN) FHR Baseline Changes: No Baseline Change (Willa Teran RN) Variability: Moderate 6-25 bpm (Willa Teran RN) Accelerations: 10X10 (Willa Teran RN) Decelerations: None (Willa Teran RN) Pain Relief Measures: Comfort Measures (Willa Teran, RN) Pain Coping: Talking Through Contractions (Willa Teran, RN) Pitocin (milliunit): Pitocin Increased to (milliunits) @ 20 (Willa Teran, RN) IV/Blood Work: IV Infusing per Order (Willa Teran, RN) Patient Position/Activity: Left Lateral (Willa Teran, RN) Comfort Measures: Family Support (Willa Teran, RN) I/O Interventions: Popsicle (Willa Teran, RN) Communication: RN at Bedside; RN Reviewed Strip (Willa Teran, RN) LaborFlag: Labor (QS system process) Datetime: 04/20/2016 12:15 Stage of : Labor (Willa Teran, DAYRON) Respirations: 18 (Willa Teran, DAYRON) Monitor Mode: External (Willa Teran, RN) Monitor Interventions for UA: [place] Adjusted (Willa Teran, DAYRON) Frequency (min): 2-2.5 (Willa Teran, RN) Quality: Mild/Moderate (Willa Teran, RN) Duration (sec): 60-70 (Willa Teran, RN) Resting Tone (Palpate): Relaxed (Willa Teran, RN) Monitor Mode: External US (Willa Teran, RN) Monitor Interventions for FHR: Ultrasound Adjusted (Willa Teran RN) FHR Baseline Rate : 140 (Willa Teran RN) FHR Baseline Changes: No Baseline Change (Willa Teran RN) Variability: Moderate 6-25 bpm (Willa Teran, RN) Accelerations: 10X10 (Willa Teran, RN) Decelerations: None (Willa Teran, RN) Pain Relief Measures: Comfort Measures (Willa Teran, RN) Pain Coping: Talking Through Contractions (Willa Teran, RN) Pitocin (milliunit): Pitocin Increased to (milliunits) @ 18 (Willa Teran, RN) IV/Blood Work: IV Infusing per Order (Willa Teran, RN) Patient Position/Activity: Left Tilt; High Fowlers (Willa Teran, RN) Comfort Measures: Family Support (Willa Teran, RN) Communication: RN at Bedside; RN Reviewed Strip (Willa Teran RN) LaborFlag: Labor (QS system process) Datetime: 04/20/2016 12:07 NBP Sys/Zuleyma/Mean (mmHg): 138 (QS system process) : 81 (QS system process) : 104 (QS system process) Pulse: 88 (QS system process) LaborFlag: Labor (QS system process) Datetime: 04/20/2016 12:02 Stage of : Labor (Willa Teran, DAYRON) Respirations: 18 (Willa Teran, DAYRON) Monitor Mode: External (Willa Teran, RN) Monitor Interventions for UA: [place] Adjusted (Willa Teran RN) Frequency (min): 2-3 (Willa Teran, DAYRON) Quality: Mild/Moderate (Willa Teran, RN) Duration (sec): 60-100 (Willa Teran, RN) Resting Tone (Palpate): Relaxed (Willa Teran, DAYRON) Monitor Mode: External US (Willa Teran RN) Monitor Interventions for FHR: Ultrasound Adjusted (Willa Teran RN) FHR Baseline Rate : 140 (Willa Teran RN) FHR Baseline Changes: No Baseline Change (Willa Teran, DAYRON) Variability: Moderate 6-25 bpm (Willa Teran, DAYRON) Accelerations: None (Willa Teran, DAYRON) Decelerations: None (Willa Teran, DAYRON) Pain Scale: 1 (Willa Teran RN) Pain Presence: Intermittent (Willa Teran, DAYRON) Pain Type: Contraction (Willa Teran RN) Pain Location: Abdomen (Willa Teran, DAYRON) Pain Relief Measures: Comfort Measures (Willa Teran, RN) Pain Coping: Talking Through Contractions (Willa Teran, DAYRON) Pitocin (milliunit): Pitocin Increased to (milliunits) @ 16 (Willa Teran, DAYRON) IV/Blood Work: IV Infusing per Order (Willa Teran, DAYRON) Patient Position/Activity: Left Tilt; High Fowlers (Willa Teran, RN) Comfort Measures: Family Support (Willa Teran, DAYRON) I/O Interventions: Up to BR (Willa Teran, DAYRON) Communication: RN at Bedside; RN Reviewed Strip (Willa Teran, DAYRON) LaborFlag: Labor (QS system process)
[2016-04-20] MEDS: RINGERS SOLUTION,LACTATED 1,000 ML IV PRN ×2 (15:07→18:12)
--- NOTE | 2016-04-20 16:00 | L&D Flow Sheet ---
LD Flowsheet Datetime Report Generated by CPN: 04/20/2016 16:00 Datetime: 04/20/2016 15:31 NBP Sys/Zuleyma/Mean (mmHg): 135 (QS system process) : 81 (QS system process) : 102 (QS system process) Pulse: 76 (QS system process) LaborFlag: Labor (QS system process) Datetime: 04/20/2016 15:02 NBP Sys/Zuleyma/Mean (mmHg): 187 (QS system process) : 106 (QS system process) : 138 (QS system process) Pulse: 91 (QS system process) LaborFlag: Labor (QS system process) Datetime: 04/20/2016 15:00 Stage of : Labor (Willa Teran RN) Respirations: 20 (Willa Teran RN) Monitor Mode: External (Willa Teran RN) Frequency (min): 2-3 (Willa Teran RN) Quality: Moderate (Willa Teran RN) Duration (sec): 65-90 (Willa Teran RN) Resting Tone (Palpate): Relaxed (Willa Teran RN) Monitor Mode: External US (Willa Teran RN) FHR Baseline Rate : 140 (Willa Teran RN) FHR Baseline Changes: No Baseline Change (Willa Teran RN) Variability: Moderate 6-25 bpm (Willa Teran RN) Accelerations: 15X15 (Willa Teran RN) Decelerations: None (Willa Teran RN) Pain Scale: 4 (Willa Teran RN) Pain Presence: Intermittent (Willa Teran RN) Pain Type: Contraction (Willa Teran RN) Pain Location: Abdomen (Willa Teran RN) Pain Relief Measures: Comfort Measures (Willa Teran RN) Pain Coping: Breathing Through Contractions (Willa Teran RN) Pitocin (milliunit): Pitocin Remains (milliunits) @ 20 (Willa Teran RN) IV/Blood Work: IV Infusing per Order (Willa Teran, DAYRON) Comfort Measures: Breathing/Relaxation; Coaching; Rocking Chair; Family Support (Willa Teran, DAYRON) Communication: RN at Bedside; RN Reviewed Strip (Willa Teran RN) LaborFlag: Labor (QS system process) Datetime: 04/20/2016 14:45 Stage of : Labor (Willa Teran RN) Respirations: 20 (Willa Teran RN) Monitor Mode: External (Willa Teran RN) Frequency (min): 2-3 (Willa Teran RN) Quality: Moderate (Willa Teran RN) Duration (sec): 60-80 (Willa Teran RN) Resting Tone (Palpate): Relaxed (Willa Teran RN) Monitor Mode: External US (Willa Teran RN) FHR Baseline Rate : 135 (Willa Teran RN) FHR Baseline Changes: No Baseline Change (Willa Teran, DAYRON) Variability: Moderate 6-25 bpm (Willa Teran, DAYRON) Accelerations: 15X15 (Willa Teran, DAYRON) Decelerations: None (Willa Teran RN) Pain Relief Measures: Comfort Measures (Willa Teran RN) Pain Coping: Breathing Through Contractions (Willa Teran RN) Pitocin (milliunit): Pitocin Remains (milliunits) @ 20 (Willa Teran RN) IV/Blood Work: IV Infusing per Order (Willa Teran, DAYRON) Comfort Measures: Breathing/Relaxation; Coaching; Family Support (Willa Teran, DAYRON) Communication: RN at Bedside; RN Reviewed Strip (Willa Teran RN) LaborFlag: Labor (QS system process) Datetime: 04/20/2016 14:31 NBP Sys/Zuleyma/Mean (mmHg): 143 (QS system process) : 88 (QS system process) : 110 (QS system process) Pulse: 83 (QS system process) LaborFlag: Labor (QS system process) Datetime: 04/20/2016 14:30 Stage of : Labor (Willa Teran RN) Respirations: 20 (Willa Teran RN) Monitor Mode: External (Willa Teran RN) Frequency (min): 1.5-2.5 (Willa Teran RN) Quality: Moderate (Willa Teran RN) Duration (sec): 65-75 (Willa Teran RN) Resting Tone (Palpate): Relaxed (Willa Teran RN) Monitor Mode: External US (Willa Teran RN) FHR Baseline Rate : 130 (Willa Teran RN) FHR Baseline Changes: No Baseline Change (Willa Teran RN) Variability: Moderate 6-25 bpm (Willa Teran RN) Accelerations: None (Willa Teran RN) Decelerations: None (Willa Teran RN) Pain Scale: 4 (Willa Teran RN) Pain Presence: Intermittent (Willa Teran RN) Pain Type: Contraction (Willa Teran RN) Pain Location: Abdomen (Willa Teran RN) Pain Relief Measures: Comfort Measures (Willa Teran RN) Pain Coping: Breathing Through Contractions (Willa Teran RN) Pitocin (milliunit): Pitocin Remains (milliunits) @ 20 (Willa Teran RN) Antibiotics: Penicillin IV (Units) @ (Annotations: 2.5 million units) (Willa Teran RN) IV/Blood Work: IV Infusing per Order (Willa Teran, DAYRON) Comfort Measures: Breathing/Relaxation; Hot/Cold Pack; Rocking Chair; Family Support (Willa Teran, DAYRON) Communication: RN at Bedside; RN Reviewed Strip (Willa Teran RN) LaborFlag: Labor (QS system process) Datetime: 04/20/2016 14:15 Stage of : Labor (Willa Teran, DAYRON) Respirations: 20 (Willa Teran, RN) Monitor Mode: External (Willa Teran, RN) Monitor Interventions for UA: [place] Adjusted (Willa Teran, DAYRON) Frequency (min): 1.5-2.5 (Willa Teran, DAYRON) Quality: Moderate (Willa Teran RN) Duration (sec): 65-75 (Willa Teran, RN) Resting Tone (Palpate): Relaxed (Willa Teran, RN) Monitor Mode: External US (Willa Teran RN) Monitor Interventions for FHR: Ultrasound Adjusted (Willa Teran RN) FHR Baseline Rate : 130 (Willa Teran RN) FHR Baseline Changes: No Baseline Change (Willa Teran, DAYRON) Variability: Moderate 6-25 bpm (Willa Teran, DAYRON) Accelerations: 15X15 (Willa Teran, RN) Decelerations: None (Willa Teran, RN) Pain Relief Measures: Comfort Measures (Willa Teran RN) Pain Coping: Breathing Through Contractions (Willa Teran, DAYRON) Pitocin (milliunit): Pitocin Remains (milliunits) @ 20 (Willa Teran, RN) IV/Blood Work: IV Infusing per Order (Willa Teran, DAYRON) Comfort Measures: Breathing/Relaxation; Coaching; Hot/Cold Pack; Family Support (Willa Teran, RN) Communication: RN at Bedside; RN Reviewed Strip (Willa Teran, DAYRON) LaborFlag: Labor (QS system process) Datetime: 04/20/2016 14:02 Stage of : Labor (Willa Teran RN) NBP Sys/Zuleyma/Mean (mmHg): 133 (QS system process) : 93 (QS system process) : 109 (QS system process) Pulse: 78 (QS system process) Respirations: 20 (Willa Teran RN) Monitor Mode: External (Willa Teran RN) Monitor Interventions for UA: [place] Adjusted (Willa Teran RN) Frequency (min): 2-3 (Willa Teran RN) Quality: Moderate (Willa Teran RN) Duration (sec): 60-70 (Willa Teran, DAYRON) Resting Tone (Palpate): Relaxed (Willa Teran RN) Monitor Mode: External US (Willa Teran RN) Monitor Interventions for FHR: Ultrasound Adjusted (Willa Teran RN) FHR Baseline Rate : 135 (Willa Teran RN) FHR Baseline Changes: No Baseline Change (Willa Teran RN) Variability: Moderate 6-25 bpm (Willa Teran, DAYRON) Accelerations: 15X15 (Willa Teran, DAYRON) Decelerations: None (Willa Teran RN) Pain Scale: 3 (Willa Teran RN) Pain Presence: Intermittent (Willa Teran RN) Pain Type: Contraction (Willa Teran RN) Pain Location: Abdomen (Willa Teran RN) Pain Relief Measures: Comfort Measures (Willa Teran RN) Pain Coping: Breathing Through Contractions (Willa Teran RN) Pitocin (milliunit): Pitocin Remains (milliunits) @ 20 (Willa Teran RN) IV/Blood Work: IV Infusing per Order (Willa Teran RN) Comfort Measures: Breathing/Relaxation; Coaching; Rocking Chair; Family Support (Willa Teran, DAYRON) Communication: RN at Bedside; RN Reviewed Strip (Willa Teran RN) LaborFlag: Labor (QS system process)
[2016-04-20] MEDS ORDERED: FENTANYL/BUPIVACAINE/NS/PF 200 MCG/100 ML RTUINJ EPI ONE (17:49)
[2016-04-20] MEDS ORDERED: BUPIVACAINE HCL 0.25 % INJ/PF (2.5 MG/1 ML) 30 ML VIAL ONE (17:49)
[2016-04-20] MEDS ORDERED: EPHEDRINE SULFATE INJ 50 MG/1 ML AMPULE ONE ×2 (17:49→21:37)
--- NOTE | 2016-04-20 18:01 | L&D Flow Sheet ---
LD Flowsheet Datetime Report Generated by CPN: 04/20/2016 18:00 Datetime: 04/20/2016 17:35 Stage of : Labor (Willa Teran RN) Dilatation (cm): 3.0 (Willa Teran RN) Effacement (%): 70 (Willa Teran RN) Station: -1 (Willa Teran RN) Exam by: DR PULIDO (Willa Teran RN) Vaginal Bleeding: None (Willa Teran RN) Procedures: Sterile Vag Exam (Willa Teran RN) Provider Reviewed Strip: Yes (Willa Teran RN) Communication: RN at Bedside; RN Reviewed Strip; Provider at Bedside; Provider Orders Received (Willa Teran RN) Datetime: 04/20/2016 17:32 NBP Sys/Zuleyma/Mean (mmHg): 146 (QS system process) : 85 (QS system process) : 108 (QS system process) Pulse: 87 (QS system process) LaborFlag: Labor (QS system process) Datetime: 04/20/2016 17:30 Monitor Mode: Internal ([place], RNC) Frequency (min): 1.5-3 ([place]ma [place], RNC) Duration (sec): 60-70 ([place]ma [place], RNC) Resting Tone IUP (mmHg): 25 ([place]ma [place], RNC) Intensity IUP (mmHg): 50-65 ([place]ma [place], RNC) Contraction Comments: mvu 240 ([place]ma Camp, RNC) Monitor Mode: External US; Auscultation ([place]ma [place], RNC) FHR Baseline Rate : 130 ([place]ma [place], RNC) FHR Baseline Changes: No Baseline Change ([place]ma [place], RNC) Variability: Minimal - Undetectable to <=5 bpm ([place]ma Camp, RNC) Decelerations: None ([place], RNC) Datetime: 04/20/2016 17:13 Stage of : Labor (Willa Teran RN) Respirations: 20 (Willa Teran RN) Monitor Mode: Internal (Willa Teran RN) Frequency (min): 1.5-3 (Willa Teran, DAYRON) Quality: Moderate (Willa Teran RN) Duration (sec): 1.5-3 (Willa Teran, DAYRON) Resting Tone (Palpate): Relaxed (Willa Teran, DAYRON) Resting Tone IUP (mmHg): 20-30 (Willa Teran, DAYRON) Intensity IUP (mmHg): 50-65 (Willa Teran, RN) Contraction Comments: 245 MVU (Willa Teran, RN) Monitor Mode: External US (Willa Teran RN) Monitor Interventions for FHR: Ultrasound Adjusted (Willa Teran RN) FHR Baseline Rate : 135 (Willa Teran, DAYRON) FHR Baseline Changes: No Baseline Change (Willa Teran, DAYRON) Variability: Moderate 6-25 bpm (Willa Teran, DAYRON) Accelerations: None (Willa Teran, RN) Decelerations: None (Willa Teran, RN) Pain Relief Measures: Comfort Measures (Willa Teran, DAYRON) Pain Coping: Breathing Through Contractions (Willa Teran, DAYRON) Pitocin (milliunit): Pitocin Remains (milliunits) @ 20 (Willa Teran, RN) IV/Blood Work: IV Infusing per Order (Willa Teran, DAYRON) Comfort Measures: Breathing/Relaxation; Coaching; Family Support (Willa Teran, DAYRON) Communication: RN at Bedside; RN Reviewed Strip (Willa Teran RN) LaborFlag: Labor (QS system process) Datetime: 04/20/2016 17:02 Stage of : Labor (Willa Teran RN) Respirations: 20 (Willa Teran RN) Temperature (F): 98.3 (Willa Teran RN) Temperature (C): 36.8 (QS system process) Monitor Mode: Internal (Willa Teran RN) Frequency (min): 2.5-3 (Willa Teran RN) Quality: Moderate (Willa Teran RN) Duration (sec): 60-70 (Willa Teran RN) Resting Tone (Palpate): Relaxed (Willa Teran RN) Monitor Mode: External US (Willa Teran RN) Monitor Interventions for FHR: Ultrasound Adjusted (Willa Teran RN) FHR Baseline Rate : 135 (Willa Teran RN) FHR Baseline Changes: No Baseline Change (Willa Teran RN) Variability: Moderate 6-25 bpm (Willa Teran RN) Accelerations: 15X15 (Willa Teran RN) Decelerations: None (Willa Teran RN) Pain Scale: 4 (Willa Teran RN) Pain Presence: Intermittent (Willa Teran RN) Pain Type: Contraction (Willa Teran RN) Pain Location: Back (Willa Teran RN) Pain Relief Measures: Comfort Measures (Willa Teran RN) Pain Coping: Breathing Through Contractions (Willa Teran RN) Pitocin (milliunit): Pitocin Remains (milliunits) @ 20 (Willa Teran, RN) IV/Blood Work: IV Infusing per Order (Willa Teran, RN) Patient Position/Activity: Right Tilt; Knee Chest (Willa Teran, RN) Comfort Measures: Breathing/Relaxation; Coaching; Family Support (Willa Teran, DAYRON) Communication: RN at Bedside; RN Reviewed Strip (Willa Teran RN) LaborFlag: Labor (QS system process) Datetime: 04/20/2016 17:01 NBP Sys/Zuleyma/Mean (mmHg): 140 (QS system process) : 72 (QS system process) : 97 (QS system process) Pulse: 73 (QS system process) LaborFlag: Labor (QS system process) Datetime: 04/20/2016 16:45 Stage of : Labor (Willa Teran RN) Respirations: 20 (Willa Teran RN) Monitor Mode: Internal (Willa Teran RN) Frequency (min): 2-4 (Willa Teran RN) Quality: Moderate (Willa Teran RN) Duration (sec): 60-70 (Willa Teran, DAYRON) Resting Tone (Palpate): Relaxed (Willa Teran RN) Resting Tone IUP (mmHg): 18-21 (Willa Teran, DAYRON) Intensity IUP (mmHg): 50-65 (Willa Teran, RN) Contraction Comments: 230 MVU (Willa Teran RN) Monitor Mode: External US (Willa Teran RN) FHR Baseline Rate : 130 (Willa Teran RN) FHR Baseline Changes: No Baseline Change (Willa Teran RN) Variability: Minimal - Undetectable to <=5 bpm (Willa Teran RN) Accelerations: None (Willa Teran RN) Decelerations: None (Willa Teran, DAYRON) Pain Relief Measures: Comfort Measures (Willa Teran RN) Pain Coping: Breathing Through Contractions (Willa Teran RN) Pitocin (milliunit): Pitocin Remains (milliunits) @ 20 (Willa Teran, DAYRON) IV/Blood Work: IV Infusing per Order (Willa Teran, DAYRON) Patient Position/Activity: Left Lateral; Low Fowlers (Willa Teran, RN) Comfort Measures: Breathing/Relaxation; Coaching; Family Support (Willa Teran, DAYRON) Communication: RN at Bedside; RN Reviewed Strip (Willa Teran RN) LaborFlag: Labor (QS system process) Datetime: 04/20/2016 16:32 NBP Sys/Zuleyma/Mean (mmHg): 146 (QS system process) : 91 (QS system process) : 114 (QS system process) Pulse: 75 (QS system process) Datetime: 04/20/2016 16:30 Stage of : Recovery (Willa Teran RN) Respirations: 20 (Willa Teran RN) Monitor Mode: External (Willa Teran RN) Frequency (min): 2.5-3.5 (Willa Teran RN) Quality: Moderate (Willa Teran RN) Duration (sec): 60-70 (Willa Teran RN) Resting Tone (Palpate): Relaxed (Willa Teran RN) Resting Tone IUP (mmHg): 19-22 (Willa Teran RN) Intensity IUP (mmHg): 50-65 (Willa Teran RN) Contraction Comments: 230 MVU (Willa Teran RN) Monitor Mode: External US (Willa Teran RN) FHR Baseline Rate : 130 (Willa Teran RN) FHR Baseline Changes: No Baseline Change (Willa Teran RN) Variability: Moderate 6-25 bpm (Willa Teran RN) Accelerations: None (Willa Teran RN) Decelerations: None (Willa Teran RN) Pain Scale: 4 (Willa Teran RN) Pain Presence: Intermittent (Willa Teran RN) Pain Type: Contraction (Willa Teran RN) Pain Location: Abdomen (Willa Teran RN) Pain Relief Measures: Comfort Measures (Willa Teran RN) Pain Coping: Breathing Through Contractions (Willa Teran RN) Pitocin (milliunit): Pitocin Remains (milliunits) @ 20 (Willa Teran RN) IV/Blood Work: IV Infusing per Order (Willa Teran RN) Patient Position/Activity: Right Lateral (Willa Teran RN) Comfort Measures: Breathing/Relaxation; Coaching; Family Support (Willa Teran RN) Communication: RN at Bedside; RN Reviewed Strip (Willa Teran RN) Datetime: 04/20/2016 16:15 Stage of : Labor (Willa Teran RN) Respirations: 20 (Willa Teran RN) Monitor Mode: External; Internal (Willa Teran RN) Frequency (min): 2-3 (Willa Teran RN) Quality: Moderate (Willa Teran RN) Duration (sec): 60-70 (Willa Teran RN) Resting Tone (Palpate): Relaxed (Willa Teran RN) Monitor Mode: External US (Willa Teran RN) FHR Baseline Rate : 135 (Willa Teran, DAYRON) FHR Baseline Changes: No Baseline Change (Willa Teran RN) Variability: Moderate 6-25 bpm (Willa Teran, RN) Accelerations: 10X10 (Willa Teran, RN) Decelerations: None (Willa Teran RN) Pain Scale: 4 (Willa Teran, DAYRON) Pain Presence: Intermittent (Willa Teran, RN) Pain Type: Contraction (Willa Teran, RN) Pain Location: Abdomen (Willa Teran, RN) Pain Relief Measures: Comfort Measures (Willa Teran, DAYRON) Pain Coping: Breathing Through Contractions (Willa Teran, DAYRON) Pitocin (milliunit): Pitocin Remains (milliunits) @ 20 (Willa Teran, RN) IV/Blood Work: IV Infusing per Order (Willa Teran, DAYRON) Patient Position/Activity: Right Tilt; Low Fowlers (Willa Teran, RN) Comfort Measures: Breathing/Relaxation; Coaching; Hot/Cold Pack; Family Support (Willa Teran, DAYRON) Communication: RN at Bedside; RN Reviewed Strip (Willa Teran, RN) LaborFlag: Labor (QS system process) Datetime: 04/20/2016 16:11 Stage of : Labor (Willa Teran RN) Monitor Interventions for UA: IUPC Inserted (Willa Teran RN) Dilatation (cm): 3.0 (Willa Teran, RN) Effacement (%): 70 (Willa Teran, DAYRON) Station: -1 (Willa Teran RN) Exam by: DAYRON RIVERA (Willa Teran RN) Vaginal Bleeding: None (Willa Teran RN) Cervix, Consistency: Moderate (Willa Teran RN) Cervix, Position: Posterior (Willa Teran RN) Provider Reviewed Strip: Yes (Willa Teran RN) Communication: RN at Bedside; RN Reviewed Strip; Provider at Bedside (Willa Teran RN) Datetime: 04/20/2016 16:02 Stage of : Labor (Willa Teran RN) NBP Sys/Zuleyma/Mean (mmHg): 148 (QS system process) : 93 (QS system process) : 116 (QS system process) Pulse: 66 (QS system process) Respirations: 20 (Willa Teran RN) Monitor Mode: External; Palpation (Willa Teran RN) Frequency (min): 2-3 (Willa Teran RN) Quality: Moderate (Willa Teran RN) Duration (sec): 60-80 (Willa Teran, DAYRON) Resting Tone (Palpate): Relaxed (Willa Teran, DAYRON) Monitor Mode: External US (Willa Teran RN) FHR Baseline Rate : 135 (Willa Teran RN) FHR Baseline Changes: No Baseline Change (Willa Teran, DAYRON) Variability: Moderate 6-25 bpm (Willa Teran, RN) Accelerations: 15X15 (Willa Teran, DAYRON) Decelerations: None (Willa Teran, DAYRON) Pain Relief Measures: Comfort Measures (Willa Teran RN) Pain Coping: Breathing Through Contractions (Willa Teran, DAYRON) Pitocin (milliunit): Pitocin Remains (milliunits) @ 20 (Willa Teran, RN) IV/Blood Work: IV Infusing per Order (Willa Teran, DAYRON) Patient Position/Activity: Right Lateral; Low Fowlers (Willa Teran, DAYRON) Comfort Measures: Breathing/Relaxation; Coaching; Family Support (Willa Teran, DAYRON) Communication: RN at Bedside; RN Reviewed Strip (Willa Teran, DAYRON) LaborFlag: Labor (QS system process)
--- NOTE | 2016-04-20 20:00 | L&D Flow Sheet ---
LD Flowsheet Datetime Report Generated by CPN: 04/20/2016 20:00 Datetime: 04/20/2016 19:59 NBP Sys/Zuleyma/Mean (mmHg): 119 (QS system process) : 66 (QS system process) : 86 (QS system process) Pulse: 89 (QS system process) LaborFlag: Labor (QS system process) Datetime: 04/20/2016 19:44 NBP Sys/Zuleyma/Mean (mmHg): 126 (QS system process) : 70 (QS system process) : 91 (QS system process) Pulse: 80 (QS system process) LaborFlag: Labor (QS system process) Datetime: 04/20/2016 19:30 NBP Sys/Zuleyma/Mean (mmHg): 123 (QS system process) : 75 (QS system process) : 95 (QS system process) Pulse: 83 (QS system process) LaborFlag: Labor (QS system process) Datetime: 04/20/2016 19:08 NBP Sys/Zuleyma/Mean (mmHg): 119 (QS system process) : 68 (QS system process) : 87 (QS system process) Pulse: 77 (QS system process) LaborFlag: Labor (QS system process) Datetime: 04/20/2016 19:03 NBP Sys/Zuleyma/Mean (mmHg): 130 (QS system process) : 71 (QS system process) : 92 (QS system process) Pulse: 86 (QS system process) LaborFlag: Labor (QS system process) Datetime: 04/20/2016 19:00 Stage of : Labor (Willa Teran RN) Respirations: 18 (Willa Teran RN) Monitor Mode: Internal (Willa Teran RN) Frequency (min): 2-4.5 (Willa Teran RN) Quality: Moderate to Strong (Willa Teran RN) Duration (sec): 55-70 (Willa Teran RN) Resting Tone (Palpate): Relaxed (Willa Teran RN) Resting Tone IUP (mmHg): 25-30 (Willa Teran RN) Intensity IUP (mmHg): 60-75 (Willa Teran, DAYRON) Contraction Comments: 260 MVU (Willa Teran RN) Monitor Mode: External US (Willa Teran RN) FHR Baseline Rate : 130 (Willa Teran RN) FHR Baseline Changes: No Baseline Change (Willa Teran RN) Variability: Moderate 6-25 bpm (Willa Teran RN) Accelerations: 15X15 (Willa Teran RN) Decelerations: Early (Willa Teran RN) Pain Scale: 0 (Willa Teran, DAYRON) Pain Presence: None/Denies (Willa Teran RN) Pain Type: Pressure (Willa Teran, DAYRON) Pain Location: Abdomen; Perineum (Willa Teran, RN) Pain Relief Measures: Comfort Measures (Willa Teran, DAYRON) Pain Coping: Talking Through Contractions (Willa Teran, DAYRON) Pitocin (milliunit): Pitocin Remains (milliunits) @ 20 (Willa Teran, RN) IV/Blood Work: IV Infusing per Order (Willa Teran, DAYRON) Patient Position/Activity: Left Tilt; Low Fowlers (Willa Teran, DAYRON) Comfort Measures: Family Support (Willa Teran, DAYRON) Communication: RN at Bedside; RN Reviewed Strip (Willa Teran RN) LaborFlag: Labor (QS system process) Datetime: 04/20/2016 18:59 NBP Sys/Zuleyma/Mean (mmHg): 124 (QS system process) : 68 (QS system process) : 89 (QS system process) Pulse: 72 (QS system process) LaborFlag: Labor (QS system process) Datetime: 04/20/2016 18:54 NBP Sys/Zuleyma/Mean (mmHg): 119 (QS system process) : 65 (QS system process) : 86 (QS system process) Pulse: 84 (QS system process) LaborFlag: Labor (QS system process) Datetime: 04/20/2016 18:49 NBP Sys/Zuleyma/Mean (mmHg): 130 (QS system process) : 66 (QS system process) : 90 (QS system process) Pulse: 88 (QS system process) LaborFlag: Labor (QS system process) Datetime: 04/20/2016 18:44 Stage of : Labor (Willa Teran RN) Respirations: 18 (Willa Teran RN) Monitor Mode: Internal (Willa Teran RN) Frequency (min): 2-3.5 (Willa Teran RN) Quality: Moderate (Willa Teran RN) Duration (sec): 60-70 (Willa Teran, DAYRON) Resting Tone (Palpate): Relaxed (Willa Teran RN) Resting Tone IUP (mmHg): 20-25 (Willa Teran, DAYRON) Intensity IUP (mmHg): 50-75 (Willa Teran, DAYRON) Contraction Comments: 240 MVU (Willa Teran RN) Monitor Mode: External US (Willa Teran RN) Monitor Interventions for FHR: Ultrasound Adjusted (Willa Teran RN) FHR Baseline Rate : 130 (Willa Teran RN) FHR Baseline Changes: No Baseline Change (Willa Teran RN) Variability: Moderate 6-25 bpm (Willa Teran RN) Accelerations: None (Willa Teran RN) Decelerations: None (Willa Teran RN) Pain Scale: 0 (Willa Teran RN) Pain Presence: None/Denies (Willa Teran RN) Pain Type: Pressure (Willa Teran RN) Pain Location: Abdomen; Perineum (Willa Teran, DAYRON) Pain Relief Measures: Comfort Measures (Willa Teran RN) Pain Coping: Talking Through Contractions (Willa Teran RN) Dilatation (cm): 3.0 (Willa Teran RN) Effacement (%): 80 (Willa Teran, DAYRON) Station: -1 (Willa Teran, DAYRON) Exam by: KAMINI TERAN RN (Willa Teran, RN) Vaginal Bleeding: None (Willa Teran, DAYRON) Pitocin (milliunit): Pitocin Remains (milliunits) @ 20 (Willa Teran, DAYRON) Procedures: Sterile Vag Exam (Wilal Teran, DAYRON) Patient Position/Activity: Left Tilt; Low Fowlers (Willa Teran RN) I/O Interventions: Parker Cath Inserted (Willa Teran RN) Communication: RN at Bedside; RN Reviewed Strip (Willa Teran RN) LaborFlag: Labor (QS system process) Datetime: 04/20/2016 18:43 NBP Sys/Zuleyma/Mean (mmHg): 131 (QS system process) : 70 (QS system process) : 93 (QS system process) Pulse: 74 (QS system process) LaborFlag: Labor (QS system process) Datetime: 04/20/2016 18:42 NBP Sys/Zuleyma/Mean (mmHg): 134 (QS system process) : 70 (QS system process) : 96 (QS system process) Pulse: 87 (QS system process) Pulse: 81 (QS system process) SpO2 (%): 100 (QS system process) LaborFlag: Labor (QS system process) Datetime: 04/20/2016 18:41 NBP Sys/Zuleyma/Mean (mmHg): 133 (QS system process) : 73 (QS system process) : 96 (QS system process) Pulse: 78 (QS system process) LaborFlag: Labor (QS system process) Datetime: 04/20/2016 18:40 NBP Sys/Zuleyma/Mean (mmHg): 135 (QS system process) : 73 (QS system process) : 98 (QS system process) Pulse: 80 (QS system process) LaborFlag: Labor (QS system process) Datetime: 04/20/2016 18:39 NBP Sys/Zuleyma/Mean (mmHg): 137 (QS system process) : 75 (QS system process) : 99 (QS system process) Pulse: 77 (QS system process) LaborFlag: Labor (QS system process) Datetime: 04/20/2016 18:38 NBP Sys/Zuleyma/Mean (mmHg): 139 (QS system process) : 72 (QS system process) : 97 (QS system process) Pulse: 83 (QS system process) LaborFlag: Labor (QS system process) Datetime: 04/20/2016 18:37 NBP Sys/Zuleyma/Mean (mmHg): 138 (QS system process) : 74 (QS system process) : 100 (QS system process) Pulse: 83 (QS system process) Pulse: 85 (QS system process) SpO2 (%): 100 (QS system process) LaborFlag: Labor (QS system process) Datetime: 04/20/2016 18:36 NBP Sys/Zuleyma/Mean (mmHg): 139 (QS system process) : 78 (QS system process) : 104 (QS system process) Pulse: 81 (QS system process) LaborFlag: Labor (QS system process) Datetime: 04/20/2016 18:35 NBP Sys/Zuleyma/Mean (mmHg): 134 (QS system process) : 77 (QS system process) : 99 (QS system process) Pulse: 84 (QS system process) LaborFlag: Labor (QS system process) Datetime: 04/20/2016 18:34 NBP Sys/Zuleyma/Mean (mmHg): 138 (QS system process) : 70 (QS system process) : 98 (QS system process) Pulse: 86 (QS system process) LaborFlag: Labor (QS system process) Datetime: 04/20/2016 18:33 NBP Sys/Zuleyma/Mean (mmHg): 136 (QS system process) : 69 (QS system process) : 96 (QS system process) Pulse: 100 (QS system process) LaborFlag: Labor (QS system process) Datetime: 04/20/2016 18:32 NBP Sys/Zuleyma/Mean (mmHg): 131 (QS system process) : 74 (QS system process) : 96 (QS system process) Pulse: 191 (QS system process) Pulse: 92 (QS system process) Pulse: 94 (QS system process) SpO2 (%): 78 (QS system process) SpO2 (%): 77 (QS system process) LaborFlag: Labor (QS system process) Datetime: 04/20/2016 18:31 NBP Sys/Zuleyma/Mean (mmHg): 131 (QS system process) : 75 (QS system process) : 97 (QS system process) Pulse: 90 (QS system process) LaborFlag: Labor (QS system process) Datetime: 04/20/2016 18:30 Stage of : Labor (Willa Teran RN) NBP Sys/Zuleyma/Mean (mmHg): 128 (QS system process) : 77 (QS system process) : 98 (QS system process) Pulse: 79 (QS system process) Respirations: 20 (Willa Teran RN) Monitor Mode: Internal (Willa Teran RN) Frequency (min): 2-4 (Willa Teran RN) Quality: Moderate (Willa Teran RN) Duration (sec): 60-70 (Willa Teran RN) Resting Tone (Palpate): Relaxed (Willa Teran RN) Monitor Mode: External US (Willa Teran RN) FHR Baseline Rate : 130 (Willa Teran RN) FHR Baseline Changes: No Baseline Change (Willa Teran RN) Variability: Minimal - Undetectable to <=5 bpm (Willa Teran RN) Accelerations: None (Willa Teran RN) Decelerations: None (Willa Teran RN) Comments: Pt sitting for Epidural, unable to trace FHTs d/t maternal positioning (Celestina Jones, RNC) Pain Scale: 3 (Willa Teran RN) Pain Presence: Intermittent (Willa Teran RN) Pain Type: Contraction (Willa Teran RN) Pain Location: Abdomen (Willa Teran RN) Pain Relief Measures: Epidural Given; Comfort Measures (Willa Teran, DAYRON) Pain Coping: Breathing Through Contractions (Willa Teran RN) Pitocin (milliunit): Pitocin Remains (milliunits) @ 20 (Willa Teran, DAYRON) Patient Position/Activity: Left Lateral; Low Fowlers (Willa Teran, DAYRON) Comfort Measures: Breathing/Relaxation; Coaching; Family Support (Willa Teran RN) Communication: RN at Bedside; RN Reviewed Strip (Willa Teran RN) LaborFlag: Labor (QS system process) Datetime: 04/20/2016 18:29 NBP Sys/Zuleyma/Mean (mmHg): 156 (QS system process) : 88 (QS system process) : 113 (QS system process) Pulse: 85 (QS system process) LaborFlag: Labor (QS system process) Datetime: 04/20/2016 18:28 Epidural Procedure: Cath Placed; Test Dose; Loading Dose (Celestina Robert, RNC) Datetime: 04/20/2016 18:27 Pulse: 79 (QS system process) SpO2 (%): 99 (QS system process) LaborFlag: Labor (QS system process) Datetime: 04/20/2016 18:22 Pulse: 99 (QS system process) SpO2 (%): 99 (QS system process) LaborFlag: Labor (QS system process) Datetime: 04/20/2016 18:19 Procedure Verify: Correct Patient Identity; Correct Side and Site are Marked; Accurate Procedure Consent Form; Agreement on Procedure to be Done; Correct Patient Position; Relevant Images and Results are Properly Labeled and Displayed; Addressed Need to Administer Antibiotics or Fluids for Irrigation; Safety Precautions Based on Patient History or Medication Use (ARNOLDO Acosta) Anesthesia Comments: Dr. Ann at for Epidural placement. (ARNOLDO Acosta) Datetime: 04/20/2016 18:18 Anesthesia Plans: Epidural (ARNOLDO Acosta) Epidural Positioning: Sitting (ARNOLDO Acosta) Datetime: 04/20/2016 18:15 Monitor Mode: Internal (ARNOLDO Acosta) Frequency (min): 2.5-3 (ARNOLDO Acosta) Duration (sec): 60-90 (Celestina Jones, RNC) Duration Criteria: Less than Two 120 Second Contractions (Celestina Jones, RNC) Pattern: Normal: <= 5 Contractions in 10 Minutes (Celestina Jones, RNC) Resting Tone IUP (mmHg): 25 (Celestina Jones, RNC) Intensity IUP (mmHg): 65 (Celestina Jones, RNC) Monitor Mode: External US (Celestina Jones, RNC) FHR Baseline Rate : 135 (Celestina Jones, RNC) Variability: Minimal - Undetectable to <=5 bpm (Celestina Jones, RNC) Accelerations: None (Celestina Jones, RNC) Decelerations: None (Celestina Jones, RNC) Datetime: 04/20/2016 18:10 Stage of : Labor (Willa Teran, DAYRON) Antibiotics: Penicillin IV (Units) @ 2.5 million units (Willa Teran, RN) IV/Blood Work: New IV Bag Hung (Willa Teran, RN) Procedure Type: EPIDURAL (Willa Teran, RN) Procedure Verify: Correct Patient Identity; Agreement on Procedure to be Done (Willa Teran, RN) Anesthesia Plans: Epidural (Willa Teran, RN) Anesthesia Comments: DR ANN NOTIFIED OF EPIDURAL REQUEST, IVF BOLUS STILL IN PROGRESS. DOES NOT WANT REPEAT CBC. (Willa Teran, RN) Communication: RN at Bedside; RN Reviewed Strip (Willa Teran RN) Datetime: 04/20/2016 18:02 NBP Sys/Zuleyma/Mean (mmHg): 132 (QS system process) : 71 (QS system process) : 94 (QS system process) Pulse: 75 (QS system process) LaborFlag: Labor (QS system process) Datetime: 04/20/2016 18:00 Stage of : Labor (Willa Teran RN) Temperature (F): 98.6 (Willa Teran RN) Temperature (C): 37.0 (QS system process) Temperature Route: Oral (Willa Teran RN) Monitor Mode: Internal (Uma Camp, RNC) Frequency (min): 1.5-3 (Uma Camp, RNC) Duration (sec): 60-90 (Uma Camp, RNC) Pattern: Normal: <= 5 Contractions in 10 Minutes (Uma Camp, RNC) Resting Tone IUP (mmHg): 30 (Uma Camp, RNC) Intensity IUP (mmHg): 90 (Uma Camp, RNC) Contraction Comments: mvu 240 (Uma Camp, RNC) Monitor Mode: External US; Auscultation (Uma Camp, RNC) FHR Baseline Rate : 135 (Uma Camp, RNC) FHR Baseline Changes: No Baseline Change (Uma Camp, RNC) Variability: Moderate 6-25 bpm (Uma Camp, RNC) Accelerations: 15X15 (Uma Camp, RNC) LaborFlag: Labor (QS system process)
[2016-04-20] MEDS ORDERED: CEFAZOLIN 2 GM/D5W RTU 2 GM/50 ML RTUPB IV ONE (21:22)
[2016-04-20] MEDS ORDERED: MISOPROSTOL 0.2 MG TABLET ONE (21:22)
[2016-04-20] MEDS ORDERED: CITRIC ACID/SODIUM CITRATE ORAL SOLN 15 ML UDCUP ONE (21:22)
[2016-04-20] MEDS ORDERED: LIDOCAINE 2% INJ-PF (20 MG/ML) 10 ML AMPUL ONE (21:27)
[2016-04-20] MEDS ORDERED: FENTANYL CITRATE INJ/PF 250 MCG/5 ML AMPULE ONE (21:37)
[2016-04-20] MEDS ORDERED: MIDAZOLAM 2 MG/2 ML INJ ONE (21:37)
[2016-04-20] MEDS ORDERED: FENTANYL CITRATE INJ/PF 100 MCG/2 ML AMPUL ONE ×3 (21:37→23:29)
[2016-04-20] MEDS ORDERED: OXYTOCIN 10 UNIT/ML VIAL ONE (21:37)
[2016-04-20] MEDS ORDERED: ONDANSETRON HCL INJ/PF 4 MG/2 ML SDV ONE (21:38)
[2016-04-20] MEDS ORDERED: OXYTOCIN/NORMAL SALINE 20 UNIT/1,000 ML RTUINJ ONE ×2 (21:38→23:24)
--- NOTE | 2016-04-20 22:00 | L&D Flow Sheet ---
LD Flowsheet Datetime Report Generated by CPN: 04/20/2016 22:00 Datetime: 04/20/2016 21:49 Additional Nursing Comments: Pt moved to OR. (Shannan Alana, RN) Datetime: 04/20/2016 21:45 NBP Sys/Zuleyma/Mean (mmHg): 118 (QS system process) : 79 (QS system process) : 93 (QS system process) Pulse: 74 (QS system process) LaborFlag: Antepartum (QS system process) Datetime: 04/20/2016 21:34 Communication Comments: Dr Zaki at b/s bolusing epidural (Madisyn Errichiello, RN) Datetime: 04/20/2016 21:26 Antibiotics: Ancef IV (Gm) @ 2 (Madisyn Errichiello, RN) Antiemetics/Antacids: Bicitra 15 ml PO (Madisyn Errichiello, RN) Communication Comments: 2 South informed of impending section. (Shannan Alana, RN) Datetime: 04/20/2016 21:24 Communication Comments: D Matters, STUDENT SUPPORT COUNSELOR informed of impending section. (Shannan Warner RN) Datetime: 04/20/2016 21:23 Communication Comments: RN trucking supervisor Patrice Castillo notified of impending section. (Shannan Warner RN) Datetime: 04/20/2016 21:00 Stage of : Antepartum (Madisyn Espinosa RN) Monitor Mode: Internal (Madisyn Espinosa RN) Frequency (min): 3-4 (Madisyn Espinosa RN) Quality: Mild/Moderate (Madisyn Espinosa RN) Duration (sec): 60-80 (Madisyn Espinosa RN) Resting Tone (Palpate): Relaxed (Madisyn Espinosa RN) Monitor Mode: External US (Madisyn Espinosa RN) FHR Baseline Rate : 150 (Madisyn Espinosa RN) FHR Baseline Changes: No Baseline Change (Madisyn Espinosa RN) Variability: Moderate 6-25 bpm (Madisyn Espinosa RN) Accelerations: None (Madisyn Espinosa RN) Decelerations: None (Madisyn Espinosa RN) Pitocin (milliunit): Pitocin Remains (milliunits) @ 20 (Madisyn Espinosa RN) Communication: RN Reviewed Strip (Madisyn Espinosa RN) Datetime: 04/20/2016 20:59 NBP Sys/Zuleyma/Mean (mmHg): 135 (QS system process) : 82 (QS system process) : 104 (QS system process) Pulse: 86 (QS system process) LaborFlag: Antepartum (QS system process) Datetime: 04/20/2016 20:45 Stage of : Antepartum (Madisyn Espinosa RN) Monitor Mode: Internal (Madisyn Espinosa RN) Frequency (min): 2-3 (Madisyn Espinosa RN) Quality: Mild/Moderate (Madisyn Espinosa RN) Duration (sec): 60-80 (Madisyn Espinosa RN) Resting Tone (Palpate): Relaxed (Madisyn Espinosa RN) Monitor Mode: External US (Madisyn Espinosa RN) FHR Baseline Rate : 140 (Madisyn Espinosa RN) FHR Baseline Changes: No Baseline Change (Madisyn Espinosa RN) Variability: Moderate 6-25 bpm (Madisyn Espinosa RN) Accelerations: None (Madisyn Espinosa RN) Decelerations: None (Madisyn Espinosa RN) Pain Presence: Intermittent (Madisyn Espinosa RN) Pain Type: Pressure (Madisyn Espinosa RN) Pain Location: Perineum (Madisyn Espinosa RN) Pain Relief Measures: Comfort Measures (Madisyn Espinosa RN) Pain Coping: Talking Through Contractions (Madisyn Espinosa RN) Pitocin (milliunit): Pitocin Remains (milliunits) @ 20 (Madisyn Espinosa RN) Comfort Measures: Breathing/Relaxation; Coaching; Family Support (Madisyn Espinosa RN) Communication: RN at Bedside; RN Reviewed Strip (Madisyn Espinosa RN) LaborFlag: Antepartum (QS system process) Datetime: 04/20/2016 20:44 NBP Sys/Zuleyma/Mean (mmHg): 142 (QS system process) : 83 (QS system process) : 107 (QS system process) Pulse: 88 (QS system process) LaborFlag: Antepartum (QS system process) Datetime: 04/20/2016 20:31 Patient Position/Activity: Peanut Ball; Right Tilt (Madisyn Espinosa RN) Datetime: 04/20/2016 20:30 Stage of : Antepartum (Madisyn Espinosa RN) NBP Sys/Zuleyma/Mean (mmHg): 124 (QS system process) : 69 (QS system process) : 91 (QS system process) Pulse: 82 (QS system process) Monitor Mode: External (Madisyn Espinosa RN) Frequency (min): 3-4 (Madisyn Espinosa RN) Quality: Mild/Moderate (Madisyn Espinosa RN) Duration (sec): 60-70 (Madisyn Espinosa RN) Resting Tone (Palpate): Relaxed (Madisyn Espinosa RN) Monitor Mode: External US (Madisyn Espinosa RN) Monitor Interventions for FHR: Ultrasound Adjusted (Madisyn Espinosa RN) FHR Baseline Rate : 130 (Madisyn Espinosa RN) FHR Baseline Changes: No Baseline Change (Madisyn Espinosa RN) Variability: Moderate 6-25 bpm (Madisyn Espinosa RN) Accelerations: 10X10 (Madisyn Espinosa RN) Decelerations: None (Madisyn Espinosa RN) Pain Presence: Intermittent (Madisyn Espinosa RN) Pain Type: Pressure (Madisyn Espinosa RN) Pain Location: Perineum (Madisyn Espinosa RN) Pitocin (milliunit): Pitocin Remains (milliunits) @ 20 (Madisyn Espinosa RN) Communication: RN at Bedside; RN Reviewed Strip (Madisyn Espinosa RN) LaborFlag: Antepartum (QS system process) Datetime: 04/20/2016 20:15 Stage of : Antepartum (Madisyn Espinosa RN) NBP Sys/Zuleyma/Mean (mmHg): 114 (QS system process) : 60 (QS system process) : 80 (QS system process) Pulse: 78 (QS system process) Monitor Mode: Internal (Madisyn Espinosa RN) Frequency (min): 2-4 (Madisyn Espinosa RN) Quality: Mild/Moderate (Madisyn Espinosa RN) Duration (sec): 50-80 (Madisyn Espinosa RN) Resting Tone (Palpate): Relaxed (Madisyn Espinosa RN) Monitor Mode: External US (Madisyn Espinosa RN) FHR Baseline Rate : 125 (Madisyn Espinosa RN) FHR Baseline Changes: No Baseline Change (Madisyn Espinosa RN) Variability: Moderate 6-25 bpm (Madisyn Espinosa RN) Accelerations: None (Madisyn Espinosa RN) Decelerations: None (Madisyn Espinosa RN) Pitocin (milliunit): Pitocin Remains (milliunits) @ 20 (Madisyn Espinosa RN) Communication: RN Reviewed Strip (Madisyn Espinosa RN) LaborFlag: Antepartum (QS system process) Datetime: 04/20/2016 20:00 Stage of : Antepartum (aMdisyn Espinosa RN) Monitor Mode: Internal (Madisyn Espinosa RN) Frequency (min): 2-4 (Madisyn Espinosa RN) Quality: Mild/Moderate (Madisyn Espinosa RN) Duration (sec): 50-100 (Madisyn Espinosa RN) Resting Tone (Palpate): Relaxed (Madisyn Espinosa RN) Contraction Comments: MVU 235 (Madisyn Espinosa RN) Monitor Mode: External US (Madisyn Espinosa RN) FHR Baseline Rate : 130 (Madisyn Espinosa RN) FHR Baseline Changes: No Baseline Change (Madisyn Espinosa RN) Variability: Moderate 6-25 bpm (Madisyn Espinosa RN) Accelerations: 15X15 (Madisyn Espinosa RN) Decelerations: None (Madisyn Espinosa RN) Communication: RN Reviewed Strip (Madisyn Espinosa RN)
[2016-04-20] MEDS ORDERED: OXYCODONE-ACETAMINOPHEN 5-325 MG TABLET PO PRN (22:47)
[2016-04-20] MEDS ORDERED: ACETAMINOPHEN 100 ML IV PRN (22:47)
[2016-04-20] MEDS ORDERED: DIPH/PERTUSS(ACELL)/TETANUS VAC/PF 0.5 ML SYR (>=10YO) IM PRN (22:47)
[2016-04-20] MEDS ORDERED: OXYTOCIN/NORMAL SALINE 1,000 ML IV PRN (22:47)
[2016-04-20] MEDS ORDERED: PROMETHAZINE HCL INJ 25 MG/1 ML VIAL IV PRN (22:47)
[2016-04-20] MEDS ORDERED: HYDROMORPHONE HCL INJ/PF 2 MG/ML AMPULE IV PRN (22:47)
[2016-04-20] MEDS ORDERED: SIMETHICONE 80 MG TAB.CHEW PO PRN (22:47)
[2016-04-20] MEDS ORDERED: RINGERS SOLUTION,LACTATED 1,000 ML IV PRN (22:47)
[2016-04-20] MEDS ORDERED: MEASLES,MUMPS&RUBELLA VACC/PF 0.5 ML VIAL SUBCUT PRN (22:47)
--- NOTE | 2016-04-20 22:55 | Operative Report ---
Operative Report DATE OF SURGERY: 04/20/16 PREOPERATIVE DIAGNOSIS: Cephalopelvic disproportion and persistent OP presentation POSTOPERATIVE DIAGNOSIS: Same OPERATION: Primary via low transverse uterine incision SURGEON: ZACH ROMERO HORIZONTAL RESAW OPERATOR: OR staff ANESTHESIA: Epidural TISSUE REMOVED OR ALTERED: Placenta COMPLICATIONS: None ESTIMATED BLOOD LOSS: 2 50 mL INTRAOPERATIVE FINDINGS: Some adhesions on the posterior aspect of the uterus which were taken down intraoperatively. PROCEDURE: Patient was taken to the OR and placed in supine position after her spinal anesthesia. She is prepared and draped in sterile fashion. Parker was placed for drainage of the bladder. Low transverse incision was made and carried down the level of the fascia. The fascial incision was made with knife and extended bilaterally with curved Santana scissors. The fascia was off the rectus muscles using sharp and blunt dissection. The rectus muscles are in the midline. The peritoneum was entered without incident. Bladder blade was placed in uterine segment was identified. A low transverse incision was made creating a bladder flap. Bladder blade was placed low transverse uterine incision was made with the csafe knife and extended with fingertips. The baby was delivered with some fundal pressure. Mouth and nose were suctioned free. The cord is doubly clamped and cut. Baby is passed off to the resource management planner in attendance. The placenta was manually extracted with trailing membranes. The uterus was externalized wrapped in a moist lap sponge. Uterine contents wiped free. Uterus was closed with a running locking layer of 0 chromic suture using the second layer to imbricate the first completing a double layer closure of the uterus. The serosa was closed with a running 2-0 chromic stitch. Some filmy adhesions were taken down on the back of the uterus. The pelvis was irrigated and suctioned free of fluid the uterus was replaced in the abdomen. The abdominal wall peritoneum was closed with running 2-0 chromic stitch. Fascia was closed with a running 0 Vicryl in 2 segments. Jonas's layer was brought together with 0 plain gut stitch and the skin was closed with running subcuticular 4-0 undyed Vicryl stitch. The wound was dressed mother and baby did well.
[2016-04-20] MEDS ORDERED: ACETAMINOPHEN 100 ML IV ONE (22:57)
[2016-04-20] MEDS ORDERED: MEPERIDINE HCL/PF INJ 25 MG/1 ML DISP.SYRIN ONE (23:02)
[2016-04-21] MEDS ORDERED: MORPHINE SULFATE 10 MG/ML INJ ONE
--- NOTE | 2016-04-21 00:59 | Delivery Summary ---
Del Sum A-C Datetime Report Generated by CPN: 04/21/2016 00:58 ADMISSION DATA Chief Complaint: Signs/Symptoms Gestational HTN; Scheduled Induction of Labor Indication for Induction: Gest. HTN/PreEclampsia/Eclampsia Admission Impression: , Intrauterine ; No Active Labor; Intact Membranes; Induction of Labor Admit Provider Comments: 25yo (H/o EAB x 2) at 36+6ega presents for IOL for GHTN and sent from office due to Severe range BP. Pt has had persistently mild range to borderline severe range BPs throughout since 30wks. Pt with h/o chlamydia during treated and with good VIKRAM. She also has a h/o MRSA Urine culture during this with adequate Tx and good VIKRAM. Euthyroid since 2nd trimester w/o medication after low TSH early with normal T4. H/o emergency surgery as a child with poss splenectomy - but pt and family unsure. GBS pos on prior Urine culture will give PCN for GBS prophy. EFW 74.9% and TRISTAN 17.52 on 04/12. cvx ft/th/hi/pos/med - cytotec 25mcg given per vagina. Pelvis adequate for VI. CAT I FHR tracing but with poss PVC - normal cardiac anatomy in . Will get PIH labs. Nursing notified of prior MRSA in in urine - contact precautions reviewed. Consents reviewed and signed. Anticipate tomorrow. DELIVERY PERSONNEL Delivery Doctor:: Alfonzo Colón MD Anesthesiologist:: Neeraj Haines MD BITE BLOCK MAKER:: Neptali Stratton CRNA Labor and Delivery Nurse:: Madisyn Espinosa RN Labor and Delivery Nurse:: Mira Gaines RN Nursery Nurse:: Debby Clark RN Supervisor Dry Paste/SUPERVISOR VOLUNTEER SERVICES: Terese Daniel CST Supervisor Dry Paste/SUPERVISOR VOLUNTEER SERVICES: [facility] Additional Personnel: : Rip Quiroga CNA MATERNAL INFORMATION Delivery Anesthesia: Epidural Medications After Delivery: Pitocin Bolus-Please Comment; Cytotec 800mcg Per Rectum/Vagina Meds After Delivery Comment: pitocin 20 units in 1000 mL NSS after delivery of placenta Maternal Complications: Other Other Maternal Complications: failure to progress LABOR SUMMARY EDC: 05/10/2016 00:00 No. Babies in Womb: 1 Attempted: No Labor Anesthesia: Epidural LABOR INFORMATION Reason for Induction: Gestational Hypertension Cervical Ripening Agents: Cervidil Oxytocin: Induction Group B Beta Strep: positive Antibiotics # of Doses: 7 Antibiotics Time of Last Dose: 1810 Name of Antibiotic Given: PENICILLIN G Steroids Given: None Reason Steroids Not Administered: Not Applicable MEMBRANES Membranes Rupture Method: Artificial Rupture of Membranes: 04/20/2016 12:49 Length of Rupture (hr): 9.38 Amniotic Fluid Color: Clear Amniotic Fluid Amount: Moderate Amniotic Fluid Odor: Normal STAGES OF LABOR Stage 3 hr: 0 Stage 3 min: 1 VAGINAL DELIVERY Episiotomy: None Laceration Extension: N/A Laceration Type: None Laceration Repair: Not Applicable Sponge Count Correct: N/A Sharps Count Correct: N/A CSECTION DELIVERY Primary Indication: Failure to Progress Secondary Indication: N/A CSection Urgency: Non-Scheduled CSection Incidence: Primary Labor: Labor Elective: Nonelective CSection Incision: Lower Uterine Transverse BABY A INFORMATION Delivery Date/Time: 04/20/2016 22:12 Method of Delivery: Born in Route : No : N/A Forceps: N/A Vacuum Extraction: N/A Shoulder Dystocia : No PRESENTATION/POSITION BABY A Presentation: Cephalic Cephalic Presentation: Vertex Breech Presentation: N/A PLACENTA INFORMATION BABY A Placenta Delivery Time : 04/20/2016 22:13 Placenta Method of Delivery: Manual Removal Placenta Status: Delivered SCORES BABY A Heart Rate 1 min: >100 bpm Resp Effort 1 min: Good Cry Reflex Irritability 1 min: Cough or Sneeze or Pulls Away Muscle Tone 1 min: Active Motion Color 1 min: Body [place], Extremities Blue Resuscitation Effort 1 min: Tactile Stimulation SCORE 1 MIN: 9 Heart Rate 5 min: >100 bpm Resp Effort 5 min: Good Cry Reflex Irritability 5 min: Cough or Sneeze or Pulls Away Muscle Tone 5 min: Active Motion Color 5 min: Body [place], Extremities Blue Resuscitation Effort 5 min: Tactile Stimulation SCORE 5 MIN: 9 INFORMATION BABY A Gestational Age at Delivery: 37.1 Gestational Status: Early Term- 37- 38.6 Weeks Infant Outcome : Liveborn Condition : Stable Infant Sex: Female IDENTIFICATION BABY A Infant Verification Date/Time: 04/20/2016 22:18 ID Band Number: [id number] Mother's Name Verified: Yes RN Verifying : K Angelo RN Additional Verifying Personnel: R Kirael SUPERVISOR VOLUNTEER SERVICES WEIGHT/LENGTH BABY A Infant Birthweight (gm): 3220 Infant Weight (lb): 7 Infant Weight (oz): 2 Infant Length (in): 19.50 Length (cm): 49.53 CORD INFORMATION BABY A Cord Blood Taken: Yes-For Eval (Mom's Blood Type - or O+) ASSESSMENT BABY A Skin to Skin: No Care By: S Chi RN Transferred To: Nursery BABY B INFORMATION : N/A
[2016-04-21] MEDS ORDERED: CARBOPROST TROMETHAMINE INJ 250 MCG/1 ML AMPULE ONE (01:01)
[2016-04-21] MEDS ORDERED: OXYTOCIN 10 UNIT/ML VIAL ONE (01:03)
[2016-04-21] MEDS ORDERED: CARBOPROST TROMETHAMINE INJ 250 MCG/1 ML AMPULE IM PRN (01:07)
[2016-04-21] MEDS ORDERED: HYDROMORPHONE HCL INJ/PF 2 MG/ML AMPULE ONE (01:28)
[2016-04-21] MEDS ORDERED: OXYTOCIN/NORMAL SALINE 20 UNIT/1,000 ML RTUINJ ONE (01:44)
[2016-04-21 01:50] LABS: PARTIAL THROMBOPLASTIN TIME 30.3 SEC (23.5-35.8); PROTHROMBIN TIME 14.2 SEC (11.4-15.4)
[2016-04-21 01:54] LABS: ABSOLUTE LYMPHOCYTES (AUTO) 1.7 10^3/uL (0.5-4.7); ABSOLUTE MONOCYTES (AUTO) 2.3 10^3/uL (0.1-1.4); ABSOLUTE NEUT (AUTO) 15.2 10^3/uL (1.7-8.2); BASOPHILS % (AUTO) 0.2 % (0-2); HEMATOCRIT 29.3 % (36.0-47.0); HGB HCT DIFFERENCE 0.1; LYMPHOCYTES % (AUTO) 8.9 % (13-45); MEAN CORPUSCULAR HEMOGLOBIN 30.1 pg (27.0-33.4); MEAN CORPUSCULAR HGB CONC 33.3 g/dL (32.0-36.0); MEAN CORPUSCULAR VOLUME 90 fl (80-97); MONOCYTES % (AUTO) 11.8 % (3-13); RED BLOOD COUNT 3.25 10^6/uL (3.72-5.28); RED CELL DISTRIBUTION WIDTH 13.2 % (11.5-14.0); SEGMENTED NEUTROPHILS % (AUTO) 79.1 % (42-78); WHITE BLOOD COUNT 19.2 10^3/uL (4.0-10.5)
[2016-04-21 01:55] LABS: HEMOGLOBIN 9.8 g/dL (12.0-15.5)
--- NOTE | 2016-04-21 02:20 | Admission Physical ---
Datetime Report Generated by CPN: 04/21/2016 02:20 CURRENT ADMISSION Chief Complaint: Signs/Symptoms Gestational HTN; Scheduled Induction of Labor Indication for Induction: Gest. HTN/PreEclampsia/Eclampsia Admit Plan: Admit to Unit; Initiate Labor Induction Protocol ALLERGIES Medication Allergies: No Medication Allergies: No Known Allergies (04/18/2016) Latex: No Latex Allergies Food Allergies: none Environmental Allergies: none OBSTETRICAL HISTORY EDC: 05/10/2016 00:00 : 3 Para: 0 Term: 0 : 0 SAB: 0 IAB: 2 Ectopic: 0 Livin Cesareans: 0 VBACs: 0 Multiple Births: 0 Gestational Diabetes: No Rh Sensitization: No Incompetent Cervix: No MARY: No Infertility: No ART Treatment: No Uterine Anomaly: No IUGR: No Hx Previous C/S: No Macrosomia: No Hx Loss/Stillborn: No PIH: Yes Hx : No Placenta Previa/Abruption: No Depression/PP Depression: No PTL/PROM: No Post Hemorrhage: No Current Procedures: Ultrasound Obstetrical History Comments: EAB x2 GHTN, Hyperthyroidism, positive gbs in initial urine [place] in labor SEE RECORDS Alcohol: No Marijuana : No Cocaine: No Other Illicit Drugs: No Cigarettes: Never Smoker. 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, 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 INFECTIOUS HISTORY Gonorrhea: No Genital Herpes: No Chlamydia: Yes Tuberculosis: No Syphilis: No Hepatitis: No HIV/AIDS Exposure: No Rash or Viral Illness: No HPV: No Infectious History Comments: positive chlamydia 10/2015 neg vikram 12/01/15 PHYSICAL EXAM General: Normal HEENT: Normal Neurologic: Normal Thyroid: Normal Heart: Normal Lungs: Normal Breast: Deferred Back: Normal Abdomen: Normal Genitourinary Exam: Normal Extremities: Normal DTRs: Normal Pelvic Type: Adequate Physical Exam Comments: pelvis unproven but adequate Vital Signs: Reviewed Details Vital Signs: Mild Randge BPs, Severe Range in Office VAGINAL EXAM Dilatation: 2 Effacement: 25 Station: -3 Contraction Comments: rare MEMBRANES Membranes: Intact FETUS A EGA: 36.6 Monitoring: External US FHR- Baseline: 135 Variability: Moderate 6-25bpm Accelerations: 15X15 Decelerations: None FHR Category: Category I Estimated Weight (gm): 3049 Presentation: Vertex Admit Comment: 25yo (H/o EAB x 2) at 36+6ega presents for IOL for GHTN and sent from office due to Severe range BP. Pt has had persistently mild range to borderline severe range BPs throughout since 30wks. Pt with h/o chlamydia during treated and with good VIKRAM. She also has a h/o MRSA Urine culture during this with adequate Tx and good VIKRAM. Euthyroid since 2nd trimester w/o medication after low TSH early with normal T4. H/o emergency surgery as a child with poss splenectomy - but pt and family unsure. GBS pos on prior Urine culture will give PCN for GBS prophy. EFW 74.9% and TRISTAN 17.52 on 04/12. cvx ft/th/hi/pos/med - cytotec 25mcg given per vagina. Pelvis adequate for VI. CAT I FHR tracing but with poss PVC - normal cardiac anatomy in . Will get PIH labs. Nursing notified of prior MRSA in in urine - contact precautions reviewed. Consents reviewed and signed. Anticipate tomorrow. PLANS FOR LABOR AND DELIVERY Labor and Delivery: None Pain Management: Epidural Feeding Preference: Breast Benefit of Breast Feed Discussed: Yes Circumcision: N/A INFORMED CONSENT Informed Consent Obtained: Vaginal Delivery; Induction of Labor; Risks, Benefits and Alternatives Discussed Signature: with User ID: [email or web address]
[2016-04-21] MEDS: OXYCODONE-ACETAMINOPHEN 5-325 MG TABLET PO PRN ×3 (04:34→22:21)
[2016-04-21] MEDS: KETOROLAC TROMETHAMINE INJ/PF 30 MG/1 ML SDV IV SCH ×3 (05:32→21:50)
[2016-04-21] MEDS: IBUPROFEN 800 MG TABLET PO SCH ×4 (05:44→22:20)
--- NOTE | 2016-04-21 07:01 | L&D Flow Sheet ---
LD Flowsheet Datetime Report Generated by CPN: 04/21/2016 07:00 Datetime: 04/21/2016 02:09 NBP Sys/Zuleyma/Mean (mmHg): 142 (QS system process) : 72 (QS system process) : 101 (QS system process) Pulse: 83 (QS system process) Datetime: 04/21/2016 02:04 NBP Sys/Zuleyma/Mean (mmHg): 141 (QS system process) : 79 (QS system process) : 104 (QS system process) Pulse: 82 (QS system process) Datetime: 04/21/2016 02:00 Stage of : Recovery (Madisyn Espinosa RN) Temperature (F): 97.5 (Madisyn Espinosa RN) Temperature (C): 36.4 (QS system process) Pain Scale: 2 (Madisyn Espinosa RN) Pain Presence: None/Denies (Madisyn Espinosa RN) Pain Type: N/A (Madisyn Espinosa RN) Pain Location: Abdomen (Madisyn Espinosa RN) Pain Goal: 1 (Madisyn Espinosa RN) Pain Relief Measures: Pain Medication Given (Madisyn Espinosa RN) Datetime: 04/21/2016 01:59 NBP Sys/Zuleyma/Mean (mmHg): 148 (QS system process) : 86 (QS system process) : 110 (QS system process) Pulse: 84 (QS system process) Datetime: 04/21/2016 01:54 NBP Sys/Zuleyma/Mean (mmHg): 140 (QS system process) : 82 (QS system process) : 103 (QS system process) Pulse: 86 (QS system process) Datetime: 04/21/2016 01:50 Stage of : Recovery (Madisyn Espinosa RN) Pain Scale: 4 (Madisyn Espinosa RN) Pain Presence: Intermittent (Madisyn Espinosa RN) Pain Type: Ache (Madisyn Espinosa RN) Pain Location: Abdomen (Madisyn Espinosa RN) Pain Goal: 1 (Madisyn Espinosa RN) Pain Relief Measures: Pain Medication Given (Madisyn Espinosa RN) Datetime: 04/21/2016 01:49 NBP Sys/Zuleyma/Mean (mmHg): 148 (QS system process) : 90 (QS system process) : 110 (QS system process) Pulse: 83 (QS system process) Datetime: 04/21/2016 01:44 NBP Sys/Zuleyma/Mean (mmHg): 140 (QS system process) : 75 (QS system process) : 102 (QS system process) Pulse: 85 (QS system process) Datetime: 04/21/2016 01:39 NBP Sys/Zuleyma/Mean (mmHg): 142 (QS system process) : 70 (QS system process) : 99 (QS system process) Pulse: 78 (QS system process) Datetime: 04/21/2016 01:35 Stage of : Recovery (Madisyn Espinosa RN) Pain Scale: 4 (Madisyn Espinosa RN) Pain Presence: Intermittent (Madisyn Espinosa RN) Pain Type: Ache (Madisyn Espinosa RN) Pain Location: Abdomen (Madisyn Espinosa RN) Pain Goal: 1 (Madisyn Espinosa RN) Pain Relief Measures: Pain Medication Given (Madisyn Espinosa RN) Datetime: 04/21/2016 01:34 NBP Sys/Zuleyma/Mean (mmHg): 152 (QS system process) : 73 (QS system process) : 104 (QS system process) Pulse: 82 (QS system process) Datetime: 04/21/2016 01:29 NBP Sys/Zuleyma/Mean (mmHg): 155 (QS system process) : 82 (QS system process) : 112 (QS system process) Pulse: 77 (QS system process) Datetime: 04/21/2016 01:24 NBP Sys/Zuleyma/Mean (mmHg): 157 (QS system process) : 96 (QS system process) : 114 (QS system process) Pulse: 91 (QS system process) Datetime: 04/21/2016 01:20 Stage of : Recovery (Madisyn Espinosa RN) Pain Scale: 4 (Madisyn Espinosa RN) Pain Presence: Intermittent (Madisyn Espinosa RN) Pain Type: Ache (Madisyn Espinosa RN) Pain Location: Abdomen (Madisyn Espinosa RN) Pain Goal: 1 (Madisyn Espinosa RN) Pain Relief Measures: Pain Medication Given (Madisyn Espinosa RN) Datetime: 04/21/2016 01:09 NBP Sys/Zuleyma/Mean (mmHg): 137 (QS system process) : 84 (QS system process) : 103 (QS system process) Pulse: 88 (QS system process) Datetime: 04/21/2016 01:05 Stage of : Recovery (Madisyn Espinosa RN) Pain Scale: 4 (Madisyn Espinosa RN) Pain Presence: Intermittent (Madisyn Espinosa RN) Pain Type: Ache (Madisyn Espinosa RN) Pain Location: Abdomen (Madisyn Espinosa RN) Pain Goal: 1 (Madisyn Espinosa RN) Pain Relief Measures: Pain Medication Given (Madisyn Espinosa RN) Datetime: 04/21/2016 01:04 NBP Sys/Zuleyma/Mean (mmHg): 136 (QS system process) : 87 (QS system process) : 107 (QS system process) Pulse: 82 (QS system process) Datetime: 04/21/2016 00:59 NBP Sys/Zuleyma/Mean (mmHg): 133 (QS system process) : 85 (QS system process) : 104 (QS system process) Pulse: 82 (QS system process) Datetime: 04/21/2016 00:54 NBP Sys/Zuleyma/Mean (mmHg): 147 (QS system process) : 98 (QS system process) : 116 (QS system process) Pulse: 73 (QS system process) Datetime: 04/21/2016 00:50 Stage of : Recovery (Madisyn Espinosa RN) Pain Scale: 4 (Madisyn Espinosa RN) Pain Presence: Intermittent (Madisyn Espinosa RN) Pain Type: Ache (Madisyn Espinosa RN) Pain Location: Abdomen (Madisyn Espinosa RN) Pain Goal: 1 (Madisyn Espinosa RN) Pain Relief Measures: Pain Medication Given (Madisyn Espinosa RN) Datetime: 04/21/2016 00:49 NBP Sys/Zuleyma/Mean (mmHg): 139 (QS system process) : 94 (QS system process) : 113 (QS system process) Pulse: 81 (QS system process) Datetime: 04/21/2016 00:44 NBP Sys/Zuleyma/Mean (mmHg): 134 (QS system process) : 84 (QS system process) : 104 (QS system process) Pulse: 75 (QS system process) Datetime: 04/21/2016 00:39 NBP Sys/Zuleyma/Mean (mmHg): 141 (QS system process) : 76 (QS system process) : 103 (QS system process) Pulse: 75 (QS system process) Datetime: 04/21/2016 00:35 Stage of : Recovery (Madisyn Espinosa RN) Pain Scale: 4 (Madisyn Espinosa RN) Pain Presence: Intermittent (Madisyn Espinosa RN) Pain Type: Ache (Madisyn Espinosa RN) Pain Location: Abdomen (Madisyn Espinosa RN) Pain Goal: 1 (Madisyn Espinosa RN) Pain Relief Measures: Pain Medication Given (Madisyn Espinosa RN) Datetime: 04/21/2016 00:34 NBP Sys/Zuleyma/Mean (mmHg): 141 (QS system process) : 82 (QS system process) : 106 (QS system process) Pulse: 75 (QS system process) Datetime: 04/21/2016 00:29 NBP Sys/Zuleyma/Mean (mmHg): 141 (QS system process) : 79 (QS system process) : 104 (QS system process) Pulse: 69 (QS system process) Datetime: 04/21/2016 00:24 NBP Sys/Zuleyma/Mean (mmHg): 134 (QS system process) : 103 (QS system process) : 114 (QS system process) Pulse: 77 (QS system process) Datetime: 04/21/2016 00:20 Stage of : Recovery (Madisyn Espinosa RN) Pain Scale: 4 (Madisyn Espinosa RN) Pain Presence: Intermittent (Madisyn Espinosa RN) Pain Type: Ache (Madisyn Espinosa RN) Pain Location: Abdomen (Madisyn Espinosa RN) Pain Goal: 1 (Madisyn Espinosa RN) Pain Relief Measures: Pain Medication Given (Madisyn Espinosa RN) Datetime: 04/21/2016 00:06 Pulse: 67 (QS system process) SpO2 (%): 100 (QS system process) Datetime: 04/21/2016 00:05 Stage of : Recovery (Madisyn Espinosa RN) Pain Scale: 4 (Madisyn Espinosa RN) Pain Presence: Intermittent (Madisyn Espinosa RN) Pain Type: Ache (Madisyn Espinosa RN) Pain Location: Abdomen (Madisyn Espinosa RN) Pain Goal: 1 (Madisyn Espinosa RN) Pain Relief Measures: Pain Medication Given (Madisyn Espinosa RN) Datetime: 04/21/2016 00:04 NBP Sys/Zuleyma/Mean (mmHg): 131 (QS system process) : 75 (QS system process) : 95 (QS system process) Pulse: 83 (QS system process) Datetime: 04/21/2016 00:00 Pulse: 72 (QS system process) SpO2 (%): 100 (QS system process) Datetime: 04/20/2016 23:59 NBP Sys/Zuleyma/Mean (mmHg): 148 (QS system process) : 77 (QS system process) : 102 (QS system process) Pulse: 67 (QS system process) Datetime: 04/20/2016 23:55 Pulse: 74 (QS system process) SpO2 (%): 100 (QS system process) Datetime: 04/20/2016 23:54 NBP Sys/Zuleyma/Mean (mmHg): 129 (QS system process) : 77 (QS system process) : 95 (QS system process) Pulse: 77 (QS system process) Datetime: 04/20/2016 23:50 Stage of : Recovery (Madisyn Espinosa RN) Pulse: 72 (QS system process) SpO2 (%): 100 (QS system process) Pain Scale: 4 (Madisyn Espinosa RN) Pain Presence: Intermittent (Madisyn Espinosa RN) Pain Type: Ache (Madisyn Espinosa RN) Pain Location: Abdomen (Madisyn Espinosa RN) Pain Goal: 1 (Madisyn Espinosa RN) Pain Relief Measures: Pain Medication Given (Madisyn Espinosa RN) Datetime: 04/20/2016 23:49 NBP Sys/Zuleyma/Mean (mmHg): 113 (QS system process) : 56 (QS system process) : 79 (QS system process) Pulse: 71 (QS system process) Datetime: 04/20/2016 23:45 NBP Sys/Zuleyma/Mean (mmHg): 90 (QS system process) : 52 (QS system process) : 68 (QS system process) Pulse: 62 (QS system process) Pulse: 54 (QS system process) SpO2 (%): 98 (QS system process) Datetime: 04/20/2016 23:40 Pulse: 77 (QS system process) SpO2 (%): 99 (QS system process) Datetime: 04/20/2016 23:39 NBP Sys/Zuleyma/Mean (mmHg): 136 (QS system process) : 77 (QS system process) : 102 (QS system process) Pulse: 80 (QS system process) Datetime: 04/20/2016 23:35 Stage of : Recovery (Madisyn Espinosa RN) Pulse: 73 (QS system process) SpO2 (%): 100 (QS system process) Pain Scale: 4 (Madisyn Espinosa RN) Pain Presence: Intermittent (Madisyn Espinosa RN) Pain Type: Ache (Madisyn Espinosa RN) Pain Location: Abdomen (Madisyn Espinosa RN) Pain Goal: 1 (Madisyn Espinosa RN) Pain Relief Measures: Pain Medication Given (Madisyn Espinosa RN) Datetime: 04/20/2016 23:34 NBP Sys/Zuleyma/Mean (mmHg): 133 (QS system process) : 80 (QS system process) : 103 (QS system process) Pulse: 89 (QS system process) Datetime: 04/20/2016 23:30 Pulse: 68 (QS system process) SpO2 (%): 100 (QS system process) Datetime: 04/20/2016 23:29 NBP Sys/Zuleyma/Mean (mmHg): 142 (QS system process) : 74 (QS system process) : 101 (QS system process) Pulse: 75 (QS system process) Datetime: 04/20/2016 23:25 Pulse: 74 (QS system process) SpO2 (%): 98 (QS system process) Datetime: 04/20/2016 23:24 NBP Sys/Zuleyma/Mean (mmHg): 145 (QS system process) : 83 (QS system process) : 109 (QS system process) Pulse: 74 (QS system process) Datetime: 04/20/2016 23:20 Stage of : Recovery (Madisyn Espinosa RN) Pulse: 74 (QS system process) SpO2 (%): 100 (QS system process) Pain Scale: 4 (Madisyn Espinosa RN) Pain Presence: Intermittent (Madisyn Espinosa RN) Pain Type: Ache (Madisyn Espinosa RN) Pain Location: Abdomen (Madisyn Espinosa RN) Pain Goal: 1 (Madisyn Espinosa RN) Pain Relief Measures: Pain Medication Given (Madisyn Espinosa RN) Datetime: 04/20/2016 23:19 NBP Sys/Zuleyma/Mean (mmHg): 156 (QS system process) : 88 (QS system process) : 115 (QS system process) Pulse: 76 (QS system process) Datetime: 04/20/2016 23:15 Pulse: 73 (QS system process) SpO2 (%): 100 (QS system process) Datetime: 04/20/2016 23:14 NBP Sys/Zuleyma/Mean (mmHg): 144 (QS system process) : 88 (QS system process) : 111 (QS system process) Pulse: 71 (QS system process) Datetime: 04/20/2016 23:10 Pulse: 70 (QS system process) SpO2 (%): 100 (QS system process) Datetime: 04/20/2016 23:09 NBP Sys/Zuleyma/Mean (mmHg): 140 (QS system process) : 84 (QS system process) : 107 (QS system process) Pulse: 76 (QS system process) Datetime: 04/20/2016 23:05 Stage of : Recovery (Madisyn Espinosa RN) Pulse: 76 (QS system process) SpO2 (%): 100 (QS system process) Pain Scale: 4 (Madisyn Espinosa RN) Pain Presence: Intermittent (Madisyn Espinosa RN) Pain Type: Ache (Madisyn Espinosa RN) Pain Location: Abdomen (Madisyn Espinosa RN) Pain Goal: 1 (Madisyn Espinosa RN) Pain Relief Measures: Pain Medication Given (Madisyn Errichiello, RN) Datetime: 04/20/2016 23:04 NBP Sys/Zuleyma/Mean (mmHg): 133 (QS system process) : 83 (QS system process) : 104 (QS system process) Pulse: 72 (QS system process) Datetime: 04/20/2016 23:00 Pulse: 73 (QS system process) SpO2 (%): 100 (QS system process) Datetime: 04/20/2016 22:59 NBP Sys/Zuleyma/Mean (mmHg): 131 (QS system process) : 77 (QS system process) : 99 (QS system process) Pulse: 71 (QS system process) Datetime: 04/20/2016 22:55 Pulse: 69 (QS system process) SpO2 (%): 99 (QS system process) Datetime: 04/20/2016 22:51 NBP Sys/Zuleyma/Mean (mmHg): 127 (QS system process) : 88 (QS system process) : 102 (QS system process) Pulse: 85 (QS system process) Datetime: 04/20/2016 22:50 Stage of : Recovery (Madisyn Espinosa RN) Pulse: 82 (QS system process) SpO2 (%): 100 (QS system process) Temperature (F): 98.0 (Madisyn Espinosa RN) Temperature (C): 36.7 (QS system process) Temperature Route: Oral (Madisyn Espinosa RN) Pain Scale: 4 (Madisyn Espinosa RN) Pain Presence: None/Denies (Madisyn Espinosa RN) Pain Type: N/A (Madisyn Espinosa RN) Pain Location: Abdomen (Madisyn Espinosa RN) Pain Goal: 1 (Madisyn Espinosa RN) Pain Relief Measures: Pain Medication Given (Madisyn Espinosa RN) Datetime: 04/20/2016 22:48 Stage of : Recovery (Madisyn Espinosa RN) Datetime: 04/20/2016 21:49 Additional Nursing Comments: Pt moved to OR. (Shannan Warner RN) Datetime: 04/20/2016 21:45 NBP Sys/Zuleyma/Mean (mmHg): 118 (QS system process) : 79 (QS system process) : 93 (QS system process) Pulse: 74 (QS system process) LaborFlag: Antepartum (QS system process) Datetime: 04/20/2016 21:34 Communication Comments: Dr Zaki at b/s bolusing epidural (Madisyn Errichiello, RN) Datetime: 04/20/2016 21:26 Antibiotics: Ancef IV (Gm) @ 2 (Madisyn Errichiello, RN) Antiemetics/Antacids: Bicitra 15 ml PO (Madisyn Espinosa RN) Communication Comments: 2 [place] informed of impending section. 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 (Shannan Warner, RN) Datetime: 04/20/2016 21:00 Stage of : Antepartum (Madisyn Espinosa RN) Monitor Mode: Internal (Madisyn Espinosa RN) Frequency (min): 3-4 (Madisyn Espinosa RN) Quality: Mild/Moderate (Madisyn Espinosa RN) Duration (sec): 60-80 (Madisyn Espinosa RN) Resting Tone (Palpate): Relaxed (Madisyn Espinosa RN) Monitor Mode: External US (Madisyn Espinosa RN) FHR Baseline Rate : 150 (Madisyn Espinosa RN) FHR Baseline Changes: No Baseline Change (Madisyn Espinosa RN) Variability: Moderate 6-25 bpm (Madisyn Espinosa RN) Accelerations: None (Madisyn Espinosa RN) Decelerations: None (Madisyn Espinosa RN) Pitocin (milliunit): Pitocin Remains (milliunits) @ 20 (Madisyn Espinosa RN) Communication: RN Reviewed Strip (Madisyn Espinosa RN) Datetime: 04/20/2016 20:59 NBP Sys/Zuleyma/Mean (mmHg): 135 (QS system process) : 82 (QS system process) : 104 (QS system process) Pulse: 86 (QS system process) LaborFlag: Antepartum (QS system process) Datetime: 04/20/2016 20:45 Stage of : Antepartum (Madisyn Espinosa RN) Monitor Mode: Internal (Madisyn Espinosa RN) Frequency (min): 2-3 (Madisyn Espinosa RN) Quality: Mild/Moderate (Madisyn Espinosa RN) Duration (sec): 60-80 (Madisyn Espinosa RN) Resting Tone (Palpate): Relaxed (Madisyn Espinosa RN) Monitor Mode: External US (Madisyn Espinosa RN) FHR Baseline Rate : 140 (Madisyn Espinosa RN) FHR Baseline Changes: No Baseline Change (Madisyn Espinosa RN) Variability: Moderate 6-25 bpm (Madisyn Espinosa RN) Accelerations: None (Madisyn Espinosa RN) Decelerations: None (Madisyn Espinosa RN) Pain Presence: Intermittent (Madisyn Espinosa RN) Pain Type: Pressure (Madisyn Espinosa RN) Pain Location: Perineum (Mdaisyn Espinosa RN) Pain Relief Measures: Comfort Measures (Madisyn Espinosa RN) Pain Coping: Talking Through Contractions (Madisyn Espinosa RN) Pitocin (milliunit): Pitocin Remains (milliunits) @ 20 (Madisyn Espinosa RN) Comfort Measures: Breathing/Relaxation; Coaching; Family Support (Madisyn Espinosa RN) Communication: RN at Bedside; RN Reviewed Strip (Madisyn Espinosa RN) LaborFlag: Antepartum (QS system process) Datetime: 04/20/2016 20:44 NBP Sys/Zuleyma/Mean (mmHg): 142 (QS system process) : 83 (QS system process) : 107 (QS system process) Pulse: 88 (QS system process) LaborFlag: Antepartum (QS system process) Datetime: 04/20/2016 20:31 Patient Position/Activity: Peanut Ball; Right Tilt (Madisyn Espinosa RN) Datetime: 04/20/2016 20:30 Stage of : Antepartum (Madisyn Espinosa RN) NBP Sys/Zuleyma/Mean (mmHg): 124 (QS system process) : 69 (QS system process) : 91 (QS system process) Pulse: 82 (QS system process) Monitor Mode: External (Madisyn Espinosa RN) Frequency (min): 3-4 (Madisyn Espinosa RN) Quality: Mild/Moderate (Madisyn Espinosa RN) Duration (sec): 60-70 (Madisyn Espinosa RN) Resting Tone (Palpate): Relaxed (Madisyn Espinosa RN) Monitor Mode: External US (Madisyn Espinosa RN) Monitor Interventions for FHR: Ultrasound Adjusted (Madisyn Espinosa RN) FHR Baseline Rate : 130 (Madisyn Espinosa RN) FHR Baseline Changes: No Baseline Change (Madisyn Espinosa RN) Variability: Moderate 6-25 bpm (Madisyn Espinosa RN) Accelerations: 10X10 (Madisyn Espinosa RN) Decelerations: None (Madisyn Esipnosa RN) Pain Presence: Intermittent (Madisyn Espinosa RN) Pain Type: Pressure (Madisyn Espinosa RN) Pain Location: Perineum (Madisyn Espinosa RN) Pitocin (milliunit): Pitocin Remains (milliunits) @ 20 (Madisyn Espinosa RN) Communication: RN at Bedside; RN Reviewed Strip (Madisyn Espinosa RN) LaborFlag: Antepartum (QS system process) Datetime: 04/20/2016 20:15 Stage of : Antepartum (Madisyn Espinosa RN) NBP Sys/Zuleyma/Mean (mmHg): 114 (QS system process) : 60 (QS system process) : 80 (QS system process) Pulse: 78 (QS system process) Monitor Mode: Internal (Madisyn Espinosa RN) Frequency (min): 2-4 (Madisyn Espinosa RN) Quality: Mild/Moderate (Madisyn Espinosa RN) Duration (sec): 50-80 (Madisyn Espinosa RN) Resting Tone (Palpate): Relaxed (Madisyn Espinosa RN) Monitor Mode: External US (Madisyn Espinosa RN) FHR Baseline Rate : 125 (Madisyn Espinosa RN) FHR Baseline Changes: No Baseline Change (Madisyn Espinosa RN) Variability: Moderate 6-25 bpm (Madisyn Espinosa RN) Accelerations: None (Madisyn Espinosa RN) Decelerations: None (Madisyn Espinosa RN) Pitocin (milliunit): Pitocin Remains (milliunits) @ 20 (Madisyn Espinosa RN) Communication: RN Reviewed Strip (Madisyn Espinosa RN) LaborFlag: Antepartum (QS system process) Datetime: 04/20/2016 20:00 Stage of : Antepartum (Madisyn Espinosa RN) Monitor Mode: Internal (Madisyn Espinosa RN) Frequency (min): 2-4 (Madisyn Espinosa RN) Quality: Mild/Moderate (Madisyn Espinosa RN) Duration (sec): 50-100 (Madisyn Espinosa RN) Resting Tone (Palpate): Relaxed (Madisyn Espinosa RN) Contraction Comments: MVU 235 (Madisyn Espinosa RN) Monitor Mode: External US (Madisyn Espinosa RN) FHR Baseline Rate : 130 (Madisyn Espinosa RN) FHR Baseline Changes: No Baseline Change (Madisyn Espinosa RN) Variability: Moderate 6-25 bpm (Madisyn Espinosa RN) Accelerations: 15X15 (Madisyn Espinosa RN) Decelerations: None (Madisyn Espinosa RN) Communication: RN Reviewed Strip (Madisyn Espinosa RN) Datetime: 04/20/2016 19:59 NBP Sys/Zulyema/Mean (mmHg): 119 (QS system process) : 66 (QS system process) : 86 (QS system process) Pulse: 89 (QS system process) Patient Position/Activity: Left Lateral; Peanut Ball (Madisyn Espinosa RN) LaborFlag: Antepartum (QS system process) Datetime: 04/20/2016 19:53 Dilatation (cm): 3.0 (Madisyn Espinosa RN) Effacement (%): 70 (Madisyn Espinosa RN) Station: -1 (Madisyn Espinosa RN) Exam by: Dr Colón (Madisyn Espinosa RN) Datetime: 04/20/2016 19:45 Stage of : Antepartum (Madisyn Espinosa RN) Monitor Mode: Internal (Madisyn Espinosa RN) Frequency (min): 2-4 (Madisyn Espinosa RN) Quality: Mild/Moderate (Madisyn Espinosa RN) Duration (sec): 50-70 (Madisyn Espinosa RN) Resting Tone (Palpate): Relaxed (Madisyn Espinosa RN) Monitor Mode: External US (Madisyn Espinosa RN) FHR Baseline Rate : 130 (Madisyn Espinosa RN) FHR Baseline Changes: No Baseline Change (Madisyn Espinosa RN) Variability: Moderate 6-25 bpm (Madisyn Espinosa RN) Accelerations: 15X15 (Madisyn Espinosa RN) Decelerations: None (Madisyn Espinosa RN) Pitocin (milliunit): Pitocin Remains (milliunits) @ 20 (Madisyn Espinosa RN) Communication: RN at Bedside; RN Reviewed Strip (Madisyn Espinosa RN) Datetime: 04/20/2016 19:44 NBP Sys/Zuleyma/Mean (mmHg): 126 (QS system process) : 70 (QS system process) : 91 (QS system process) Pulse: 80 (QS system process) LaborFlag: Antepartum (QS system process) Datetime: 04/20/2016 19:30 Stage of : Antepartum (Madisyn Espinosa RN) NBP Sys/Zuleyma/Mean (mmHg): 123 (QS system process) : 75 (QS system process) : 95 (QS system process) Pulse: 83 (QS system process) Monitor Mode: External (Madisyn Espinosa RN) Frequency (min): 2-3 (Madisyn Espinosa RN) Quality: Mild/Moderate (Madisyn Espinosa RN) Duration (sec): 50-120 (Madisyn Espinosa RN) Resting Tone (Palpate): Relaxed (Madisyn Espinosa RN) Monitor Mode: External US (Madisyn Espinosa RN) Monitor Interventions for FHR: Ultrasound Adjusted (Madisyn Espinosa RN) FHR Baseline Rate : 130 (Madisyn Espinosa RN) FHR Baseline Changes: No Baseline Change (Madisyn Espinosa RN) Variability: Moderate 6-25 bpm (Madisyn Espinosa RN) Accelerations: 15X15 (Madisyn Espinosa RN) Decelerations: None (Madisyn Espinosa RN) Communication: RN at Bedside; RN Reviewed Strip (Madisyn Espinosa RN) LaborFlag: Antepartum (QS system process) Datetime: 04/20/2016 19:15 Stage of : Antepartum (Madisyn Espinosa RN) Temperature (F): 97.4 (Madisyn Espinosa RN) Temperature (C): 36.3 (QS system process) Monitor Mode: External (Madisyn Espinosa RN) Frequency (min): 3-4 (Madisyn Espinosa RN) Quality: Mild/Moderate (Madisyn Espinosa RN) Duration (sec): 70-80 (Madisyn Espinosa RN) Resting Tone (Palpate): Relaxed (Madisyn Espinosa RN) Monitor Mode: External US (Madisyn Espinosa RN) FHR Baseline Rate : 130 (Madisyn Espinosa RN) FHR Baseline Changes: No Baseline Change (Madisyn Espinosa RN) Variability: Moderate 6-25 bpm (Madisyn Espinosa RN) Accelerations: 10X10 (Madisyn Espinosa RN) Decelerations: None (Madisyn Espinosa RN) Pain Scale: 2 (Madisyn Espinosa RN) Pain Presence: None/Denies (Madisyn Espinosa RN) Pain Goal: 1 (Madisyn Espinosa RN) Pain Relief Measures: Comfort Measures (Madisyn Espinosa RN) Pain Coping: Talking Through Contractions (Madisyn Espinosa RN) Pitocin (milliunit): Pitocin Remains (milliunits) @ 20 (Madisyn Espinosa RN) Patient Position/Activity: Left Tilt; Semi-Fowlers (GABRIELA Mckeon Comfort Measures: Breathing/Relaxation; Coaching; Family Support (Madisyn Espinosa RN) Communication: RN at Bedside; RN Reviewed Strip (Madisyn Espinosa RN) LaborFlag: Antepartum (QS system process) Datetime: 04/20/2016 19:08 NBP Sys/Zuleyma/Mean (mmHg): 119 (QS system process) : 68 (QS system process) : 87 (QS system process) Pulse: 77 (QS system process) LaborFlag: Labor (QS system process) Datetime: 04/20/2016 19:03 NBP Sys/Zuleyma/Mean (mmHg): 130 (QS system process) : 71 (QS system process) : 92 (QS system process) Pulse: 86 (QS system process) LaborFlag: Labor (QS system process) Datetime: 04/20/2016 19:00 Stage of : Labor (Willa Teran RN) Respirations: 18 (Willa Teran RN) Monitor Mode: Internal (Willa Teran RN) Frequency (min): 2-4.5 (Willa Teran, DAYRON) Quality: Moderate to Strong (Willa Teran RN) Duration (sec): 55-70 (Willa Teran, DAYRON) Resting Tone (Palpate): Relaxed (Willa Teran RN) Resting Tone IUP (mmHg): 25-30 (Willa Teran, DAYRON) Intensity IUP (mmHg): 60-75 (Willa Teran, DAYRON) Contraction Comments: 260 MVU (Willa Teran, DAYRON) Monitor Mode: External US (Willa Teran RN) FHR Baseline Rate : 130 (Willa Teran RN) FHR Baseline Changes: No Baseline Change (Willa Teran RN) Variability: Moderate 6-25 bpm (Willa Teran, DAYRON) Accelerations: 15X15 (Willa Teran, DAYRON) Decelerations: Early (Willa Teran, DAYRON) Pain Scale: 0 (Willa Teran RN) Pain Presence: None/Denies (Willa Teran RN) Pain Type: Pressure (Willa Teran, DAYRON) Pain Location: Abdomen; Perineum (Willa Teran, DAYRON) Pain Relief Measures: Comfort Measures (Willa Teran RN) Pain Coping: Talking Through Contractions (Willa Teran, DAYRON) Pitocin (milliunit): Pitocin Remains (milliunits) @ 20 (Willa Teran, DAYRON) IV/Blood Work: IV Infusing per Order (Willa Teran, DAYRON) Patient Position/Activity: Left Tilt; Low Fowlers (Willa Teran, RN) Comfort Measures: Family Support (Willa Teran, DAYRON) Communication: RN at Bedside; RN Reviewed Strip (Willa Teran, DAYRON) LaborFlag: Labor (QS system process)
[2016-04-21 07:43] LABS: HEMATOCRIT 26.8 % (36.0-47.0); HGB HCT DIFFERENCE 0.2; MEAN CORPUSCULAR HEMOGLOBIN 30.4 pg (27.0-33.4); MEAN CORPUSCULAR HGB CONC 33.7 g/dL (32.0-36.0); MEAN CORPUSCULAR VOLUME 90 fl (80-97); RED BLOOD COUNT 2.97 10^6/uL (3.72-5.28); RED CELL DISTRIBUTION WIDTH 13.4 % (11.5-14.0); WHITE BLOOD COUNT 16.1 10^3/uL (4.0-10.5)
--- NOTE | 2016-04-21 09:06 | PDOC PROGRESS REPORT ---
Subjective-OB Subjective: Post Delivery Day: 25 year old. Denies any needs at this time Doing better today, hsb at BS, , pain under control, going to have simmons removed ay 10 and then will get up and ambulate, taking diet well, no nausea Physical Exam (OB) Vital Signs: Temp Pulse Resp BP Pulse Ox 97.3 F 73 20 130/87 H 100 04/21/16 08:12 04/21/16 08:12 04/21/16 08:12 04/21/16 08:12 04/21/16 08:12 Intake & Output 04/20/16 04/21/16 04/22/16 06:59 06:59 06:59 Intake Total 1500 Output Total 1900 Balance -400 - PIH/Pre-Eclampsia DTR's: 1 + Clonus: Negative Headache: Absent Epigastric Pain: No Visual Changes: No - Dressing Removed: No - op site Incision: Dressing, Draining - Lochia Lochia Amount: Small 10-25 ml Lochia Color: Rubra/Red - Abdomen Description: Tender, Soft Hernia Present: No Fundal Description: Firm, Midline Fundal Height: u/u - u/2 Objective-Diagnostic Laboratory: 04/21/16 07:35 04/18/16 18:55 04/21/16 04/21/16 01:20 07:35 WBC 19.2 H 16.1 H RBC 3.25 L 2.97 L Hgb 9.8 L D 9.0 L Hct 29.3 L 26.8 L MCV 90 90 MCH 30.1 30.4 MCHC 33.3 33.7 RDW 13.2 13.4 Plt Count 216 204 Seg Neutrophils % 79.1 H Lymphocytes % 8.9 L Monocytes % 11.8 Eosinophils % 0.0 Basophils % 0.2 Absolute Neutrophils 15.2 H Absolute Lymphocytes 1.7 Absolute Monocytes 2.3 H Absolute Eosinophils 0.0 Absolute Basophils 0.0 04/18/16 17:44 Nasophary (Mrsa Only) MRSA Surveillance Culture - Final NO MRSA RECOVERED Assessment and Plan(PN) - Assessment and Plan (1) GBS (group B Streptococcus carrier), +RV culture, currently Is this a current diagnosis for this admission?: Yes (2) hemorrhage of vagina Is this a current diagnosis for this admission?: Yes (3) Delivery by section of full-term infant Is this a current diagnosis for this admission?: Yes - Time Spent with Patient Time with patient: Less than 15 minutes Medications reviewed and adjusted accordingly: Yes - Disposition Anticipated Discharge: Home Within: within 48 hours
[2016-04-21] MEDS: PRENATAL VITAMIN W-O CA NO5/FE FUMARATE/FA CAPSULE PO SCH (10:29)
[2016-04-21] MEDS: DOCUSATE SODIUM 100 MG CAPSULE PO SCH ×2 (10:30→17:45)
--- NOTE | 2016-04-21 18:01 | L&D General Admission ---
General Admit Datetime Report Generated by CPN: 04/21/2016 18:00 INFORMATION Patient Age: 25 (03/22/2016 17:26:QS system process) EDC: 05/10/2016 00:00 (03/22/2016 17:30:Amaya Emmanuel RN) : 3 (03/22/2016 17:30:ARNOLDO Arzola) Para: 0 (04/12/2016 19:14:Cheri Hinkle RN) Term: 0 (03/22/2016 17:30:ARNOLDO Arzola) : 0 (03/22/2016 17:30:ARNOLDO Arzola) Spontaneous Abortions: 0 (03/22/2016 17:30:ARNOLDO Arzola) Induced Abortions: 2 (03/22/2016 17:30:ARNOLDO Arzola) Livin (03/22/2016 17:30:ARNOLDO Arzola) Cesareans: 0 (03/22/2016 17:30:ARNOLDO Arzola) VBACs: 0 (03/22/2016 17:30:Uma Turner RNC) Ectopic: 0 (03/22/2016 17:30:Uma Turner, [facility]) Multiple Births: 0 (03/22/2016 17:30:Uma Turner [facility]) Baby, Number in Womb: 1 (04/12/2016 19:14:Julienne Tamayo RN) CARE Primary Drafter Apprentice: [facility] (03/22/2016 17:30:Uma Turner [facility]) Month of 1st Visit: October (03/22/2016 17:30:Uma Turner [facility]) Adequate Care: Yes (03/22/2016 17:30:Uma Turner, [facility]) Prepregnancy Weight (lb): 188 (03/22/2016 17:30:Uma Turner [facility]) Prepregnancy Weight (kg): 85.5 (03/22/2016 17:30:QS system process) Height (in): 63 (04/21/2016 02:18:QS system process) ALLERGIES Medication Allergy: No (03/22/2016 17:30:UmaARNOLDO Tapia) Medication Allergies: No Known Allergies (04/18/2016) (04/18/2016 18:14:QS system process) Latex Allergy: No Latex Allergies (03/22/2016 17:30:ARNOLDO Arzola) Food Allergies: none (03/22/2016 17:30:Gin Del Angel RN) Environmental Allergies: none (03/22/2016 17:30:Gin Del Angel RN) COMMUNICATION Primary Language: French (03/22/2016 17:30:ARNOLDO Arzola) Medical Tx Preferred Language: French (03/22/2016 17:30:ARNOLDO Arzola) Communication Barrier(s): None (03/22/2016 17:30:ARNOLDO Arzola) DEMOGRAPHICS Address: [address] [place] [id number] (04/15/2016 17:13:QS system process) Zipcode: [address] (03/22/2016 17:26:QS system process) Home (03/22/2016 17:26:QS system process) SSN: [id number] (03/22/2016 17:26:QS system process) Next of Kin Name: MARIELA ADAMES (04/18/2016 16:34:QS system process) Next of Kin (03/22/2016 17:26:QS system process) Next of Kin Relationship: SPO (03/22/2016 17:26:QS system process) Date of : 1990 (03/22/2016 17:26:QS system process) Marital Status: (03/22/2016 17:26:QS system process) Sex: Female (03/22/2016 17:26:QS system process) Occupation: Other (03/22/2016 17:30:ARNOLDO Arzola) Occupation- Other : [employer] (03/22/2016 17:30:ARNOLDO Arzola) Race: (03/22/2016 17:26:QS system process) Ethnicity: Non- or (03/22/2016 17:26:QS system process) Protestant: None (03/22/2016 17:26:QS system process) Education: 12 (03/22/2016 17:30:ARNOLDO Arzola) FOB Involved: Yes (03/22/2016 17:30:ARNOLDO Arzola) Father of Baby Name: Freddy Adames (03/22/2016 17:30:ARNOLDO Arzola) DRUG AND ALCOHOL USE Alcohol: No (03/22/2016 17:30:ARNOLDO Arzola) Cigarettes: Never Smoker. [id number] (03/22/2016 17:30:ARNOLDO Arzola) Marijuana: No (03/22/2016 17:30:Uma Camp, RNC) Cocaine: No (03/22/2016 17:30:Uma Camp, RN) Other Illicit Drugs: No (03/22/2016 17:30:Uma Camp, RNC) VACCINE HISTORY Influenza Vaccine: Yes (03/22/2016 17:30:Uma Camp, [facility]) Influenza Date: 02/08/2016 (03/22/2016 17:30:Uma Camp, [facility]) Pneumococcal Vaccine: No (03/22/2016 17:30:Uma Camp, [facility]) Tetanus Vaccine: Yes (03/22/2016 17:30:Uma Camp, [facility]) Tdap Vaccine: Yes (03/22/2016 17:30:Uma Camp, [facility]) Hepatitis B Vaccine: No (03/22/2016 17:30:Uma Camp, [facility]) Stem Teacher: [facility] (03/22/2016 17:30:Uma Camp, [facility]) Feeding Preference: Breast (03/22/2016 17:30:Uma Camp, RNC) Benefit of Breast Feed Discussed: Yes (03/22/2016 17:30:ARNOLDO Arzola) Circumcision: N/A (03/22/2016 17:30:ARNOLDO Arzola) Classes Attended: Unknown (03/22/2016 17:30:ARNOLDO Arzola) Tubal Ligation: No (03/22/2016 17:30:ARNOLDO Arzola) Tubal Authorization Signed: N/A (03/22/2016 17:30:ARNOLDO Arzola) Consent: N/A (03/22/2016 17:30:ARNOLDO Arzola) Consent Signed: N/A (03/22/2016 17:30:ARNOLDO Arzola) Pain Management Plans: Epidural (03/22/2016 17:30:Cheri Hinkle RN) Plans for Labor and Delivery: None (03/22/2016 17:30:ARNOLDO Arzola) Support Person: Freddy Adames (03/22/2016 17:30:ARNOLDO Arzola) Support Person Relationship: (03/22/2016 17:30:ARNOLDO Arzola) Cultural/Spritual Practice: N/A (03/22/2016 17:30:ARNOLDO Arzola) Spir/Cult Dietary Needs: N/A (03/22/2016 17:30:ARNOLDO Arzola) LIVING SITUATION/DISCHARGE PLAN Living Arrangements: House (03/22/2016 17:30:ARNOLDO Arzola) Adequate Access to:: Electric; Heat; Refrigeration; Plumbing/Running water; Phone; Transportation (03/22/2016 17:30:ARNOLDO Arzola) WIC Program: Needs referral (03/22/2016 17:30:ARNOLDO Arzola) 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 Tower Truck Driver Person: Freddy Adames (03/22/2016 17:30:ARNOLDO Arzola) Person to Help after Discharge: Freddy Adames (03/22/2016 17:30:ARNOLDO Arzola) Currently Using Commun Resources: Yes (03/22/2016 17:30:ARNOLDO Arzola) Specify Current Resource Used: medicaid (03/22/2016 17:30:ARNOLDO Arzola) Outside Agency/[employer] Calenderer: No (03/22/2016 17:30:ARNOLDO Arzola) Car Seat for Discharge: Yes (03/22/2016 17:30:ARNOLDO Arzola) Need Help to Obtain Car Seat: car seat to be picked up (03/22/2016 17:30:Gin Del Angel RN) Adoption Requested: No (03/22/2016 17:30:ARNOLDO Arzola) LABS Blood Type: O Positive (Annotations: Data stored by Shena on behalf of user) (03/22/2016 17:30:ARNOLDO Arzola) Antibody Screen: neg (03/22/2016 17:30:Cheri Hinkle RN) Rho(G) this : Not Applicable (03/22/2016 17:30:Maxine Edge RN) Hemoglobin: 9.0 L (04/21/2016 07:35:QS system process) Hematocrit: 26.8 L (04/21/2016 07:35:QS system process) MCV: 90 (04/21/2016 07:35:QS system process) Group Beta Strep: positive (03/22/2016 17:30:ARNOLDO Arzola) Gonorrhea: Negative (03/22/2016 17:30:Cheri Hinkle RN) Chlamydia: Negative (03/22/2016 17:30:Cheri Hinkle RN) RPR/VDRL: Nonreactive (03/22/2016 17:30:ARNOLDO Arzola) HIV Exposure Test: Negative (03/22/2016 17:30:ARNOLDO Arzola) Hepatitis B: Negative (03/22/2016 17:30:Cheri Hinkle RN) Rubella: Immune (03/22/2016 17:30:Cheri Hinkle RN) OB/PREVIOUS HISTORY Previous Procedures: None (03/22/2016 17:30:ARNOLDO Arzola) Current Procedures: Ultrasound (03/22/2016 17:30:ARNOLDO Arzola) History of Previous : No (03/22/2016 17:30:ARNOLDO Arzola) History of Gestational Diabetes: No (03/22/2016 17:30:ARNOLDO Arzola) History of PIH: Yes (03/22/2016 17:30:ARNOLDO Arzola) History of Incompetent Cervix: No (03/22/2016 17:30:ARNOLDO Arzola) History of Placenta Previa/Abrup: No (03/22/2016 17:30:ARNOLDO Arzola) History of Macrosomia: No (03/22/2016 17:30:ARNOLDO Arzola) History of IUGR: No (03/22/2016:30:ARNOLDO Arzola) History of Hemorrhage: No (03/22/2016 17:30:ARNOLDO Arzola) History of Loss/Stillborn: No (03/22/2016 17:30:ARNOLDO Arzola) History of : No (03/22/2016 17:30:ARNOLDO Arzola) History of D (Rh) Sensitization: No (03/22/2016 17:30:ARNOLDO Arzola) History Recurrent Loss/Stillborn: No (03/22/2016 17:30:ARNOLDO Arzola) History Depression/PP Depression: No (03/22/2016 17:30:ARNOLDO Arzola) History of Uterine Anomaly/MARY: No (03/22/2016 17:30:ARNOLDO Arzola) History of Infertility: No (03/22/2016 17:30:ARNOLDO Arzola) History of ART Treatment: No (03/22/2016 17:30:ARNOLDO Arzola) History of MARY: No (03/22/2016 17:30:ARNOLDO Arzola) Comments Obstetrical History: EAB x2 GHTN, Hyperthyroidism, positive gbs in initial urine TX in labor (03/22/2016 17:30:Maxine Edge RN) MEDICAL HISTORY Med Hx Diabetes: No (03/22/2016 17:30:ARNOLDO Arzola) Med Hx Hypertension: Yes (03/22/2016 17:30:ARNOLDO Arzola) Med Hx Heart Disease: No (03/22/2016 17:30:ARNOLDO Arzola) Med Hx Autoimmune Disorder: No (03/22/2016 17:30:ARNOLDO Arzola) Med Hx Kidney Disease/UTI: No (03/22/2016 17:30:ARNOLDO Arzola) Med Hx Neurologic/Epilepsy: No (03/22/2016 17:30:ARNOLDO Arzola) Med Hx Psychiatric Disorders: No (03/22/2016 17:30:ARNOLDO Arzola) Med Hx Hepatitis/Liver Disease: No (03/22/2016 17:30:ARNOLDO Arzola) Med Hx Varicosities/Phlebitis: No (03/22/2016 17:30:ARNOLDO Arzola) Med Hx Thyroid Dysfunction: Yes (03/22/2016 17:30:ARNOLDO Arzola) Med Hx Trauma/Violence: Yes (03/22/2016 17:30:ARNOLDO Arzola) Med Hx Blood Transfusion: No (03/22/2016 17:30:ARNOLDO Arzola) Med Hx Pulmonary (Asthma,TB): No (03/22/2016 17:30:ARNOLDO Arzola) Med Hx Breast: No (03/22/2016 17:30:ARNOLDO Arzola) Med Hx CHEMICAL LIBRARIAN Surgery: No (03/22/2016 17:30:ARNOLDO Arzola) Med Hx Hospitalization/Surgery: Yes (03/22/2016 17:30:ARNOLDO Arzola) Med Hx Anesthetic Complications: No (03/22/2016 17:30:ARNOLDO Arzola) Med Hx Abnormal Pap Smear: No (03/22/2016 17:30:ARNOLDO Arzola) Other Medical Diseases: No (03/22/2016 17:30:ARNOLDO Arzola) Med Hx Significant Family Hx: No (03/22/2016 17:30:ARNOLDO Arzola) Details of Med/Surg Hx: current gestation- gestational hypertension, 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9 - 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, 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 (03/22/2016 17:30:ARNOLDO Arzola) INFECTIOUS HISTORY Inf Hx Gonorrhea: No (03/22/2016 17:30:[facility]) Inf Hx Chlamydia: Yes (03/22/2016 17:30:[facility]) Inf Hx Syphilis: No (03/22/2016 17:30:[facility]) Inf Hx HIV/AIDS: No (03/22/2016 17:30:[facility]) Inf Hx Human Papilloma Virus: No (03/22/2016 17:30:[facility]) Inf Hx Pt/Partner Genital Herpes: No (03/22/2016 17:30:[facility]) Inf Hx Tuberculosis/Exposure: No (03/22/2016 17:30:[facility]) Inf Hx Hepatitis B,C: No (03/22/2016 17:30:[facility]) Inf Hx Rash or Viral Illness: No (03/22/2016 17:30:[facility]) Details of Infectious Hx: positive chlamydia 10/2015 neg guy 12/01/15 (03/22/2016 17:30:[facility]) GENETIC HISTORY Gen Hx Age >=35 at JAYNA: No (03/22/2016 17:30:[facility]) Gen Hx Thalassemia: No (03/22/2016 17:30:Uma Turner, [facility]) Gen Hx Congenital Heart Defect: No (03/22/2016 17:30:Uma Turner, [facility]) Gen Hx Neural Tube Defect: No (03/22/2016 17:30:Uma Turner, [facility]) Gen Hx Down's Syndrome: No (03/22/2016 17:30:Uma Turner, [facility]) Gen Hx Capo-Sachs: No (03/22/2016 17:30:Uma Turner [facility]) Gen Hx Renetta: No (03/22/2016 17:30:Uma Turner, [facility]) Gen Hx Familial Dysautonomia: No (03/22/2016 17:30:Uma Turner [facility]) Gen Hx Sickle Cell Disease/Trait: No (03/22/2016 17:30:Uma Turner, [facility]) Gen Hx Hemophilia/Blood Disorder: No (03/22/2016 17:30:Uma Turner [facility]) Gen Hx Muscular Dystrophy: No (03/22/2016 17:30:Uma Turner [facility]) Gen Hx Cystic Fibrosis: No (03/22/2016 17:30:Uma Turner [facility]) Gen Hx Huntingtons Chorea: No (03/22/2016 17:30:Uma Turner [facility]) Gen Hx Mental Retardation/Autism: No (03/22/2016 17:30:Uma Turner [facility]) Gen Hx Tested for Fragile X: No (03/22/2016 17:30:Uma Turner [facility]) Gen Hx Other Inher/Chromosomal: No (03/22/2016 17:30:Uma Turner [facility]) Gen Hx Maternal Metabolic DO: No (03/22/2016 17:30:Uma Turner [facility]) Gen Hx Pt Father or FOB Defect: No (03/22/2016 17:30:Uma Turner [facility]) Gen Hx Other Genetic History: No (03/22/2016 17:30:Uma Turner [facility]) Gen Hx Drugs/Meds since LMP: No (03/22/2016 17:30:Uma Turner [facility])
--- NOTE | 2016-04-21 18:01 | L&D Current Admission ---
Current Admit Datetime Report Generated by CPN: 04/21/2016 18:00 ADMISSION INFORMATION Current Admit Date/Time: 04/18/2016 16:45 (04/18/2016 16:54:Cheri Hinkle RN) Reason for Admission: Induction of Labor (04/18/2016 16:54:Cheri Hinkle RN) Chief Complaint: Scheduled Induction of Labor (04/18/2016 17:37:Cheri Hinkle RN) EGA per Dates: 36.6 (04/18/2016 16:54:QS system process) Method of Arrival: Ambulatory (04/18/2016 16:54:Cheri Hinkle RN) Admitted From: Home (04/18/2016 16:54:Cheri Hinkle RN) Reason for Induction: Gestational Hypertension (04/18/2016 16:54:Cheri Hinkle RN) Records Available: Yes (04/18/2016 16:54:Cheri Hinkle RN) General Admission Information: Reviewed (04/18/2016 16:54:Cheri Hinkle RN) BELONGINGS/ADVANCED DIRECTIVES Other Belongings: see signed belongings consent (04/18/2016 16:54:Cheri Hinkle RN) Disposition of Belongings: Kept with Patient (04/18/2016 16:54:Cheri Hinkle RN) Advance Direct for Healthcare: No, and Wants No Information (04/18/2016 16:54:Cheri Hinkle RN) Durable Power of In Flight Technician: No (04/18/2016 16:54:Cheri Hinkle RN) Living Will: No (04/18/2016 16:54:Cheri Hinkle RN) Organ Donor: Yes (04/18/2016 16:54:Cheri Hinkle RN) Pt Rights Information Given: Yes (04/18/2016 16:54:Cheri Hinkle RN) Pt Understands Pt Rights: Yes (04/18/2016 16:54:Cheri Hinkle RN) LEARNING ASSESSMENT Knowledge Level: Understands L_D Process; Understands Care Activities; Had Pre-Hospital Education; Understands Diagnosis (04/18/2016 16:54:Cheri Hinkle RN) Barriers to Learning: None (04/18/2016 16:54:Cheri Hinkle RN) Learning Readiness: Motivated (04/18/2016 16:54:Cheri Hinkle RN) Learns Best By: 1 to 1 Instruction (04/18/2016 16:54:Cheri Hinkle RN) Learning Needs: Labor and Delivery Process; Pain Management; Symptoms to Report; Treatment Plan; Medication; Diagnosis; Nutrition; Equipment; Infant Care; Community Resources (04/18/2016 16:54:Cheri Hinkle RN) DOMESTIC VIOLANCE SCREENING Dom Viol Threatened/Hurt: No (04/18/2016 16:54:Cheri Hinkle RN) Hx of Abuse/Neglect past 2yrs: No (04/18/2016 16:54:Cheri Hinkle RN) Feel Unsafe Going Home: No (04/18/2016 16:54:Cheri Hinkle RN) Addt'l Observ Indicating Abuse: No (04/18/2016 16:54:Cheri Hinkle RN) Reason Unable to Complete Screen: N/A, Screen Completed (04/18/2016 16:54:Cheri Hinkle RN) Considered Personal Harm/Suicide: No (04/18/2016 16:54:Cheri Hinkle RN) NUTRITIONAL/FUNCTIONAL SCREENING Problem with Appetite >5 Days: No (04/18/2016 16:54:Cheri Hinkle RN) Chew/Swallow Difficulties: No (04/18/2016 16:54:Cheri Hinkle RN) Inappropriate Wt Gain/Loss: No (04/18/2016 16:54:Cheri Hinkle RN) Presence Skin Breakdown/Ulcer: No (04/18/2016 16:54:Cheri Hinkle RN) Special Diet: No (04/18/2016 16:54:Cheri Hinkle RN) Pt Requests Referral Coordinator Visit: No (04/18/2016 16:54:Cheri Hinkle RN) Hx of Any of the Following?: N/A (04/18/2016 16:54:Cheri Hinkle RN) New Diagnosis of: N/A (04/18/2016 16:54:Cheri Hinkle RN) Requires Assist w/Ambulation: No (04/18/2016 16:54:Cheri Hinkle RN) Uses Assist Device to Ambulate: No (04/18/2016 16:54:Cheri Hinkle RN) Pt Requires Help w/ADL's: No (04/18/2016 16:54:Cheri Hinkle RN)
--- NOTE | 2016-04-21 18:16 | L&D Care Plan ---
LD CARE PLANS Datetime Report Generated by CPN: 04/21/2016 18:15 Datetime: 04/18/2016 18:51 State: Risk For (Cheri Hinkle RN) Related To: Labor and Delivery Process (Cheri Hinkle RN) Goal(s): Patients Pain will be Assessed and Managed; Patient will Verbalize Adequate Relief of Pain or the Ability to [place] with Current Pain (Cheri Hinkle RN) Interventions: Assess Pain Severity on Scale of 0 (None) to 5 (Severe); Assess Type, Location and Intensity of Pain Each Time Client Reports Discomfort and Notify Provider if Unusal Pain Develops; Encourage Proper Breathing and Relaxation Techniques; Offer Alternatives Such as Repositioning, Calm Environment, Massages, Diversional Activities, Ice Pack, Splinting, and Ambulation (Cheri Hinkle RN) Outcome: Patient will Report Absence or Relief of Pain Consistent with Established Pain Goal (Cheri Hinkle RN) Status: Ongoing (Cheri Hinkle RN) Outcome: Patient will have a Decrease in Signs and Symptoms of Discomfort (Cheri Hinkle RN) Status: Ongoing (Cheri Hinkle RN) State: Not Applicable (Cheri Hinkle RN) State: Risk For (Cheri Hinkle RN) Related To: Labor and Delivery Process; Treatment and Procedures; Impending Alterations in Family Dynamics; Community Resources and Available Support Mechanisms (Cheri Hinkle RN) Goal(s): Patient will Accurately Verbalize Understanding of Plan of Care and Treatment; Patient and Family will Accurately Verbalize Understanding of the Disease Process (Cheri Hinkle RN) Interventions: Assess Motivation and Willingness of Patient/Family to Learn; Assess Preferred Learning Mode: One to One Instruction, Reading, Videos, Group Discussion or Demonstration; Assess Barriers to Learning: Pain, Emotional State, Language Barrier, Cognitive Impairment, Visual or Hearing Deficits; Assess Patient and Family Knowledge of Disease Process, Medications and Treatment; Discuss Therapy and/or Treatment Options, Describe Rationale Behind Management, Therapy and Treatment Recommendations (Cheri Hinkle RN) Outcome: Patient and Family will Verbalize Understanding of Condition, Treatment and Signs and Symptoms to Report (Cheri Hinkle RN) Status: Ongoing (Cheri Hinkle RN) Outcome: Patient will Identify Perceived Learning Needs and Express Motivation to Learn (Cheri Hinkle RN) Status: Ongoing (Cheri Hinkle RN) State: Risk For (Cheri Hinkle RN) Related To: Prolonged Labor or Induction (Cheri Hinkle RN) Goal(s): The Patient will be Free of Infection, Vital Signs Stable and Lab Work within Normal Parameters (Cheri Hinkle RN) Interventions: Instruct and Reinforce Proper Handwashing, Hygiene, and Care Techniques to Patient and Family; Monitor Vital Signs; Monitor Patient for the Following Signs of Infection: Fever, Abdominal Tenderness, Unusual Discharge; Monitor Aminiotic Fluid, Urine and Lochia for Color and Odor (Cheri Hinkle, [place]) Outcome: Patient will Remain Free of Infection (Cheri Hinkle RN) Status: Ongoing (Cheri Hinkle RN) Outcome: Infection will be Recognized Early to Allow for Prompt Treatment (Cheri Hinkle RN) Status: Ongoing (Cheri Hinkle RN) State: Not Applicable (Cheri Hinkle RN) State: Not Applicable (Cheri Hinkle RN) State: Risk For (Cheri Hinkle RN) Related To: Vaginal Delivery (Cheri Hinkle RN) Goal(s): Patient will Maintain Optimal Skin Integrity, Free of Breakdown, Injury or Infection (Cheri Hinkle RN) Interventions: Complete Screening for Pressure Ulcer Risk and Initiate Protocol per Hospital Policy; Monitor Site of Skin Impairment for Color Changes, Redness, Swelling, Warmth, Pain or Other Signs of Infection (Cheri Hinkle RN) Outcome: Patient will not have Evidence of Injury Such as Skin Breakdown, Scrapes, Cuts, or Bruising (Cheri Hinkle RN) Status: Ongoing (Cheri Hinkle RN) Outcome: Patient will Report Any Altered Sensation or Pain at Site of Skin Impairment (Cheri Hinkle RN) Status: Ongoing (Cheri Hinkle RN) State: Not Applicable (Cheri Hinkle RN) State: Not Applicable (Cheri Hinkle RN) State: Not Applicable (Cheri Hinkle RN) Datetime: 04/18/2016 18:49 State: Risk For (Cheri Hinkle RN) Related To: Labor and Delivery Process (Cheri Hinkle RN) Goal(s): Patients Pain will be Assessed and Managed; Patient will Verbalize Adequate Relief of Pain or the Ability to [place] with Current Pain (Cheri Hinkle RN) Interventions: Assess Pain Severity on Scale of 0 (None) to 5 (Severe); Assess Type, Location and Intensity of Pain Each Time Client Reports Discomfort and Notify Provider if Unusal Pain Develops; Encourage Proper Breathing and Relaxation Techniques; Offer Alternatives Such as Repositioning, Calm Environment, Massages, Diversional Activities, Ice Pack, Splinting, and Ambulation (Cheri Hinkle RN) Outcome: Patient will Report Absence or Relief of Pain Consistent with Established Pain Goal (Cheri Hinkle RN) Status: Ongoing (Cheri Hinkle RN) Outcome: Patient will have a Decrease in Signs and Symptoms of Discomfort (Cheri Hinkle RN) Status: Ongoing (Cheri Hinkle RN) State: Not Applicable (Cheri Hinkle RN) State: Risk For (Cheri Hinkle RN) Related To: Labor and Delivery Process; Treatment and Procedures; Impending Alterations in Family Dynamics; Community Resources and Available Support Mechanisms (Cheri Hinkle RN) Goal(s): Patient will Accurately Verbalize Understanding of Plan of Care and Treatment; Patient and Family will Accurately Verbalize Understanding of the Disease Process (Cheri Hinkle RN) Interventions: Assess Motivation and Willingness of Patient/Family to Learn; Assess Preferred Learning Mode: One to One Instruction, Reading, Videos, Group Discussion or Demonstration; Assess Barriers to Learning: Pain, Emotional State, Language Barrier, Cognitive Impairment, Visual or Hearing Deficits; Assess Patient and Family Knowledge of Disease Process, Medications and Treatment; Discuss Therapy and/or Treatment Options, Describe Rationale Behind Management, Therapy and Treatment Recommendations (Cheri Hinkle RN) Outcome: Patient and Family will Verbalize Understanding of Condition, Treatment and Signs and Symptoms to Report (Cheri Hinkle RN) Status: Ongoing (Cheri Hinkle RN) Outcome: Patient will Identify Perceived Learning Needs and Express Motivation to Learn (Cheri Hinkle RN) Status: Ongoing (Cheri Hinkle RN) State: Risk For (Cheri Hinkle RN) Related To: Prolonged Labor or Induction (Cheri Hinkle RN) Goal(s): The Patient will be Free of Infection, Vital Signs Stable and Lab Work within Normal Parameters (Cheri Hinkle RN) Interventions: Instruct and Reinforce Proper Handwashing, Hygiene, and Care Techniques to Patient and Family; Monitor Vital Signs; Monitor Patient for the Following Signs of Infection: Fever, Abdominal Tenderness, Unusual Discharge; Monitor Aminiotic Fluid, Urine and Lochia for Color and Odor (Cheri Hinkle, [place]) Outcome: Patient will Remain Free of Infection (Cheri Hinkle RN) Status: Ongoing (Cheri Hinkle RN) Outcome: Infection will be Recognized Early to Allow for Prompt Treatment (Cheri Hinkle RN) Status: Ongoing (Cheri Hinkle RN) State: Not Applicable (Cheri Hinkle RN) State: Not Applicable (Cheri Hinkle RN) State: Risk For (Cheri Hinkle RN) Related To: Vaginal Delivery (Cheri Hinkle RN) Goal(s): Patient will Maintain Optimal Skin Integrity, Free of Breakdown, Injury or Infection (Cheri Hinkle RN) Interventions: Complete Screening for Pressure Ulcer Risk and Initiate Protocol per Hospital Policy; Monitor Site of Skin Impairment for Color Changes, Redness, Swelling, Warmth, Pain or Other Signs of Infection (Cheri Hinkle RN) Outcome: Patient will not have Evidence of Injury Such as Skin Breakdown, Scrapes, Cuts, or Bruising (Cheri Hinkle RN) Status: Ongoing (Cheri Hinkle RN) Outcome: Patient will Report Any Altered Sensation or Pain at Site of Skin Impairment (Cheri Hinkle RN) Status: Ongoing (Cheri Hinkle RN) State: Not Applicable (Cheri Hinkle RN) State: Not Applicable (Cheri Hinkle RN) State: Not Applicable (Cheri Hinkle RN)
[2016-04-22] MEDS: OXYCODONE-ACETAMINOPHEN 5-325 MG TABLET PO PRN ×3 (05:15→18:31)
[2016-04-22] MEDS: IBUPROFEN 800 MG TABLET PO SCH ×3 (05:16→17:45)
--- NOTE | 2016-04-22 06:01 | L&D Current Admission ---
Current Admit Datetime Report Generated by CPN: 04/22/2016 06:00 ADMISSION INFORMATION Current Admit Date/Time: 04/18/2016 16:45 (04/18/2016 16:54:Cheri Hinkle RN) Reason for Admission: Induction of Labor (04/18/2016 16:54:Cheri Hinkle RN) Chief Complaint: Scheduled Induction of Labor (04/18/2016 17:37:Cheri Hinkle RN) EGA per Dates: 36.6 (04/18/2016 16:54:QS system process) Method of Arrival: Ambulatory (04/18/2016 16:54:Cheri Hinkle RN) Admitted From: Home (04/18/2016 16:54:Cheri Hinkle RN) Reason for Induction: Gestational Hypertension (04/18/2016 16:54:Cheri Hinkle RN) Records Available: Yes (04/18/2016 16:54:Cheri Hinkle RN) General Admission Information: Reviewed (04/18/2016 16:54:Cheri Hinkle RN) BELONGINGS/ADVANCED DIRECTIVES Other Belongings: see signed belongings consent (04/18/2016 16:54:Cheri Hinkle RN) Disposition of Belongings: Kept with Patient (04/18/2016 16:54:Cheri Hinkle RN) Advance Direct for Healthcare: No, and Wants No Information (04/18/2016 16:54:Cheri Hinkle RN) Durable Power of Loan Review Manager: No (04/18/2016 16:54:Cheri Hinkle RN) Living Will: No (04/18/2016 16:54:Cheri Hinkle RN) Organ Donor: Yes (04/18/2016 16:54:Cheri Hinkle RN) Pt Rights Information Given: Yes (04/18/2016 16:54:Cheri Hinkle RN) Pt Understands Pt Rights: Yes (04/18/2016 16:54:Cheri Hinkle RN) LEARNING ASSESSMENT Knowledge Level: Understands L_D Process; Understands Care Activities; Had Pre-Hospital Education; Understands Diagnosis (04/18/2016 16:54:Cheri Hinkle RN) Barriers to Learning: None (04/18/2016 16:54:Cheri Hinkle RN) Learning Readiness: Motivated (04/18/2016 16:54:Cheri Hinkle RN) Learns Best By: 1 to 1 Instruction (04/18/2016 16:54:Cheri Hinkle RN) Learning Needs: Labor and Delivery Process; Pain Management; Symptoms to Report; Treatment Plan; Medication; Diagnosis; Nutrition; Equipment; Infant Care; Community Resources (04/18/2016 16:54:Cheri Hinkle RN) DOMESTIC VIOLANCE SCREENING Dom Viol Threatened/Hurt: No (04/18/2016 16:54:Cheri Hinkle RN) Hx of Abuse/Neglect past 2yrs: No (04/18/2016 16:54:Cheri Hinkle RN) Feel Unsafe Going Home: No (04/18/2016 16:54:Cheri Hinkle RN) Addt'l Observ Indicating Abuse: No (04/18/2016 16:54:Cheri Hinkle RN) Reason Unable to Complete Screen: N/A, Screen Completed (04/18/2016 16:54:Cheri Hinkle RN) Considered Personal Harm/Suicide: No (04/18/2016 16:54:hCeri Hinkle RN) NUTRITIONAL/FUNCTIONAL SCREENING Problem with Appetite >5 Days: No (04/18/2016 16:54:Cheri Hinkle RN) Chew/Swallow Difficulties: No (04/18/2016 16:54:Cheri Hinkle RN) Inappropriate Wt Gain/Loss: No (04/18/2016 16:54:Cheri Hinkle RN) Presence Skin Breakdown/Ulcer: No (04/18/2016 16:54:Cheri Hinkle RN) Special Diet: No (04/18/2016 16:54:Cheri Hinkle RN) Pt Requests Mechanical Developer Prover Visit: No (04/18/2016 16:54:Cheri Hinkle RN) Hx of Any of the Following?: N/A (04/18/2016 16:54:Cheri Hinkle RN) New Diagnosis of: N/A (04/18/2016 16:54:Cheri Hinkle RN) Requires Assist w/Ambulation: No (04/18/2016 16:54:Cheri Hinkle RN) Uses Assist Device to Ambulate: No (04/18/2016 16:54:Cheri Hinkle RN) Pt Requires Help w/ADL's: No (04/18/2016 16:54:Cheri Hinkle RN)
--- NOTE | 2016-04-22 06:01 | L&D General Admission ---
General Admit Datetime Report Generated by CPN: 04/22/2016 06:00 INFORMATION Patient Age: 25 (03/22/2016 17:26:QS system process) EDC: 05/10/2016 00:00 (03/22/2016 17:30:Amaya Emmanuel RN) : 3 (03/22/2016 17:30:ARNOLDO Arzola) Para: 0 (04/12/2016 19:14:Cheri Hinkle RN) Term: 0 (03/22/2016 17:30:ARNOLDO Arzola) : 0 (03/22/2016 17:30:ARNOLDO Arzola) Spontaneous Abortions: 0 (03/22/2016 17:30:ARNOLDO Arzola) Induced Abortions: 2 (03/22/2016 17:30:ARNOLDO Arzola) Livin (03/22/2016 17:30:ARNOLDO Arzola) Cesareans: 0 (03/22/2016 17:30:ARNOLDO Arzola) VBACs: 0 (03/22/2016 17:30:Uma Turner RNC) Ectopic: 0 (03/22/2016 17:30:Uma Turner, [facility]) Multiple Births: 0 (03/22/2016 17:30:Uma Turner [facility]) Baby, Number in Womb: 1 (04/12/2016 19:14:Julienne Tamayo RN) CARE Primary Trade Specialist: [facility] (03/22/2016 17:30:Uma Turner [facility]) Month of 1st Visit: October (03/22/2016 17:30:Uma Turner [facility]) Adequate Care: Yes (03/22/2016 17:30:Uma Turner, [facility]) Prepregnancy Weight (lb): 188 (03/22/2016 17:30:Uma Turner [facility]) Prepregnancy Weight (kg): 85.5 (03/22/2016 17:30:QS system process) Height (in): 63 (04/21/2016 02:18:QS system process) ALLERGIES Medication Allergy: No (03/22/2016 17:30:UmaARNOLDO Tapia) Medication Allergies: No Known Allergies (04/18/2016) (04/18/2016 18:14:QS system process) Latex Allergy: No Latex Allergies (03/22/2016 17:30:ARNOLDO Arzola) Food Allergies: none (03/22/2016 17:30:Gin Del Angel RN) Environmental Allergies: none (03/22/2016 17:30:Gin Del Angel RN) COMMUNICATION Primary Language: Latvian (03/22/2016 17:30:ARNOLDO Arzola) Medical Tx Preferred Language: Latvian (03/22/2016 17:30:ARNOLDO Arzola) Communication Barrier(s): None (03/22/2016 17:30:ARNOLDO Arzola) DEMOGRAPHICS Address: [address] [place] [id number] (04/15/2016 17:13:QS system process) Zipcode: [address] (03/22/2016 17:26:QS system process) Home (03/22/2016 17:26:QS system process) SSN: [id number] (03/22/2016 17:26:QS system process) Next of Kin Name: MARIELA ADAMES (04/18/2016 16:34:QS system process) Next of Kin (03/22/2016 17:26:QS system process) Next of Kin Relationship: SPO (03/22/2016 17:26:QS system process) Date of : 1990 (03/22/2016 17:26:QS system process) Marital Status: (03/22/2016 17:26:QS system process) Sex: Female (03/22/2016 17:26:QS system process) Occupation: Other (03/22/2016 17:30:ARNOLDO Arzola) Occupation- Other : [employer] (03/22/2016 17:30:ARNOLDO Arzola) Race: (03/22/2016 17:26:QS system process) Ethnicity: Non- or (03/22/2016 17:26:QS system process) Christianity: None (03/22/2016 17:26:QS system process) Education: 12 (03/22/2016 17:30:ARNOLDO Arzola) FOB Involved: Yes (03/22/2016 17:30:ARNOLDO Arzola) Father of Baby Name: Freddy Adames (03/22/2016 17:30:ARNOLDO Arzola) DRUG AND ALCOHOL USE Alcohol: No (03/22/2016 17:30:ARNOLDO Arzola) Cigarettes: Never Smoker. [id number] (03/22/2016 17:30:ARNOLDO Arzola) Marijuana: No (03/22/2016 17:30:Uma Camp, RNC) Cocaine: No (03/22/2016 17:30:Uma Camp, RN) Other Illicit Drugs: No (03/22/2016 17:30:Uma Camp, RNC) VACCINE HISTORY Influenza Vaccine: Yes (03/22/2016 17:30:Uma Camp, [facility]) Influenza Date: 02/08/2016 (03/22/2016 17:30:Uma Camp, [facility]) Pneumococcal Vaccine: No (03/22/2016 17:30:Uma Camp, [facility]) Tetanus Vaccine: Yes (03/22/2016 17:30:Uma Camp, [facility]) Tdap Vaccine: Yes (03/22/2016 17:30:Uma Camp, [facility]) Hepatitis B Vaccine: No (03/22/2016 17:30:Uma Camp, [facility]) Complementary Health Therapists: [facility] (03/22/2016 17:30:Uma Camp, [facility]) Feeding Preference: Breast (03/22/2016 17:30:Uma Camp, RNC) Benefit of Breast Feed Discussed: Yes (03/22/2016 17:30:ARNOLDO Arzola) Circumcision: N/A (03/22/2016 17:30:ARNOLDO Arzola) Classes Attended: Unknown (03/22/2016 17:30:ARNOLDO Arzola) Tubal Ligation: No (03/22/2016 17:30:ARNOLDO Arzola) Tubal Authorization Signed: N/A (03/22/2016 17:30:ANROLDO Arzola) Consent: N/A (03/22/2016 17:30:ARNOLDO Arzola) Consent Signed: N/A (03/22/2016 17:30:ARNOLDO Arzola) Pain Management Plans: Epidural (03/22/2016 17:30:Cheri Hinkle RN) Plans for Labor and Delivery: None (03/22/2016 17:30:ARNOLDO Arzola) Support Person: Freddy Adames (03/22/2016 17:30:ARNOLDO Arzola) Support Person Relationship: (03/22/2016 17:30:ARNOLDO Arzola) Cultural/Spritual Practice: N/A (03/22/2016 17:30:ARNOLDO Arzola) Spir/Cult Dietary Needs: N/A (03/22/2016 17:30:ARNOLDO Arzola) LIVING SITUATION/DISCHARGE PLAN Living Arrangements: House (03/22/2016 17:30:ARNOLDO Arzola) Adequate Access to:: Electric; Heat; Refrigeration; Plumbing/Running water; Phone; Transportation (03/22/2016 17:30:ARNOLDO Arzola) WIC Program: Needs referral (03/22/2016 17:30:ARNOLDO Arzola) Discharge Medical Instrument Cable Fabricator Person: Freddy Adames (03/22/2016 17:30:ARNOLDO Arzola) Person to Help after Discharge: Freddy Adames (03/22/2016 17:30:ARNOLDO Arzola) Currently Using Commun Resources: Yes (03/22/2016 17:30:ARNOLDO Arzola) Specify Current Resource Used: medicaid (03/22/2016 17:30:ARNOLDO Arzola) Outside Agency/Productivity Engineer: No (03/22/2016 17:30:ARNOLDO Arzola) Car Seat for Discharge: Yes (03/22/2016 17:30:ARNOLDO Arzola) Need Help to Obtain Car Seat: car seat to be picked up (03/22/2016 17:30:Gin Del Angel RN) Adoption Requested: No (03/22/2016 17:30:ARNOLDO Arzola) LABS Blood Type: O Positive (Annotations: Data stored by Shena on behalf of user) (03/22/2016 17:30:ARNOLDO Arzola) Antibody Screen: neg (03/22/2016 17:30:Cheri Hinkle RN) Rho(G) this : Not Applicable (03/22/2016 17:30:Maxine Edge RN) Hemoglobin: 9.0 L (04/21/2016 07:35:QS system process) Hematocrit: 26.8 L (04/21/2016 07:35:QS system process) MCV: 90 (04/21/2016 07:35:QS system process) Group Beta Strep: positive (03/22/2016 17:30:ARNOLDO Arzola) Gonorrhea: Negative (03/22/2016 17:30:Cheri Hinkle RN) Chlamydia: Negative (03/22/2016 17:30:Cheri Hinkle RN) RPR/VDRL: Nonreactive (03/22/2016 17:30:ARNOLDO Arzola) HIV Exposure Test: Negative (03/22/2016 17:30:ARNOLDO Arzola) Hepatitis B: Negative (03/22/2016 17:30:Cheri Hinkle RN) Rubella: Immune (03/22/2016 17:30:Cheri Hinkle RN) OB/PREVIOUS HISTORY Previous Procedures: None (03/22/2016 17:30:ARNOLDO Arzola) Current Procedures: Ultrasound (03/22/2016 17:30:ARNOLDO Arzola) History of Previous : No (03/22/2016 17:30:ARNOLDO Arzola) History of Gestational Diabetes: No (03/22/2016 17:30:ARNOLDO Arzola) History of PIH: Yes (03/22/2016 17:30:ARNOLDO Arzola) History of Incompetent Cervix: No (03/22/2016 17:30:ARNOLDO Arzola) History of Placenta Previa/Abrup: No (03/22/2016 17:30:ARNOLDO Arzola) History of Macrosomia: No (03/22/2016 17:30:ARNOLDO Arzola) History of IUGR: No (03/22/2016:30:ARNOLDO Arzola) History of Hemorrhage: No (03/22/2016 17:30:ARNOLDO Arzola) History of Loss/Stillborn: No (03/22/2016 17:30:ARNOLDO Arzola) History of : No (03/22/2016 17:30:ARNOLDO Arzola) History of D (Rh) Sensitization: No (03/22/2016 17:30:ARNOLDO Arzola) History Recurrent Loss/Stillborn: No (03/22/2016 17:30:ARNOLDO Arzola) History Depression/PP Depression: No (03/22/2016 17:30:ARNOLDO Arzola) History of Uterine Anomaly/MARY: No (03/22/2016 17:30:ARNOLDO Arzola) History of Infertility: No (03/22/2016 17:30:ARNOLDO Arzola) History of ART Treatment: No (03/22/2016 17:30:ARNOLDO Arzola) History of MARY: No (03/22/2016 17:30:ARNOLDO Arzola) Comments Obstetrical History: EAB x2 GHTN, Hyperthyroidism, positive gbs in initial urine [place] in labor (03/22/2016 17:30:Maxine Edge RN) MEDICAL HISTORY Med Hx Diabetes: No (03/22/2016 17:30:ARNOLDO Arzola) Med Hx Hypertension: Yes (03/22/2016 17:30:ARNOLDO Arzola) Med Hx Heart Disease: No (03/22/2016 17:30:ARNOLDO Arzola) Med Hx Autoimmune Disorder: No (03/22/2016 17:30:ARNOLDO Arzola) Med Hx Kidney Disease/UTI: No (03/22/2016 17:30:ARNOLDO Arzola) Med Hx Neurologic/Epilepsy: No (03/22/2016 17:30:ARNOLDO Arzola) Med Hx Psychiatric Disorders: No (03/22/2016 17:30:ARNOLDO Arzola) Med Hx Hepatitis/Liver Disease: No (03/22/2016 17:30:ARNOLDO Arzola) Med Hx Varicosities/Phlebitis: No (03/22/2016 17:30:ARNOLDO Arzola) Med Hx Thyroid Dysfunction: Yes (03/22/2016 17:30:ARNOLDO Arzola) Med Hx Trauma/Violence: Yes (03/22/2016 17:30:ARNOLDO Arzola) Med Hx Blood Transfusion: No (03/22/2016 17:30:ARNOLDO Arzola) Med Hx Pulmonary (Asthma,TB): No (03/22/2016 17:30:ARNOLDO Arzola) Med Hx Breast: No (03/22/2016 17:30:ARNOLDO Arzola) Med Hx POULTRY PATHOLOGIST Surgery: No (03/22/2016 17:30:ARNOLDO Arzola) Med Hx Hospitalization/Surgery: Yes (03/22/2016 17:30:ARNOLDO Arzola) Med Hx Anesthetic Complications: No (03/22/2016 17:30:ARNOLDO Arzola) Med Hx Abnormal Pap Smear: No (03/22/2016 17:30:ARNOLDO Arzola) Other Medical Diseases: No (03/22/2016 17:30:ARNOLDO Arzola) Med Hx Significant Family Hx: No (03/22/2016 17:30:ARNOLDO Arzola) Details of Med/Surg Hx: current gestation- gestational hypertension, 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9 - 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, 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 (03/22/2016 17:30:ARNOLDO Arzola) INFECTIOUS HISTORY Inf Hx Gonorrhea: No (03/22/2016 17:30:[facility]) Inf Hx Chlamydia: Yes (03/22/2016 17:30:[facility]) Inf Hx Syphilis: No (03/22/2016 17:30:[facility]) Inf Hx HIV/AIDS: No (03/22/2016 17:30:[facility]) Inf Hx Human Papilloma Virus: No (03/22/2016 17:30:[facility]) Inf Hx Pt/Partner Genital Herpes: No (03/22/2016 17:30:[facility]) Inf Hx Tuberculosis/Exposure: No (03/22/2016 17:30:[facility]) Inf Hx Hepatitis B,C: No (03/22/2016 17:30:[facility]) Inf Hx Rash or Viral Illness: No (03/22/2016 17:30:[facility]) Details of Infectious Hx: positive chlamydia 10/2015 neg guy 12/01/15 (03/22/2016 17:30:[facility]) GENETIC HISTORY Gen Hx Age >=35 at JAYNA: No (03/22/2016 17:30:[facility]) Gen Hx Thalassemia: No (03/22/2016 17:30:Uma Turner, [facility]) Gen Hx Congenital Heart Defect: No (03/22/2016 17:30:Uma Turner, [facility]) Gen Hx Neural Tube Defect: No (03/22/2016 17:30:Uma Turner, [facility]) Gen Hx Down's Syndrome: No (03/22/2016 17:30:Uma Turner, [facility]) Gen Hx Capo-Sachs: No (03/22/2016 17:30:Uma Turner [facility]) Gen Hx Renetta: No (03/22/2016 17:30:Uma Turner, [facility]) Gen Hx Familial Dysautonomia: No (03/22/2016 17:30:Uma Turner [facility]) Gen Hx Sickle Cell Disease/Trait: No (03/22/2016 17:30:Uma Turner, [facility]) Gen Hx Hemophilia/Blood Disorder: No (03/22/2016 17:30:Uma Turner [facility]) Gen Hx Muscular Dystrophy: No (03/22/2016 17:30:Uma Turner [facility]) Gen Hx Cystic Fibrosis: No (03/22/2016 17:30:Uma Turner [facility]) Gen Hx Huntingtons Chorea: No (03/22/2016 17:30:Uma Turner [facility]) Gen Hx Mental Retardation/Autism: No (03/22/2016 17:30:Uma Turner [facility]) Gen Hx Tested for Fragile X: No (03/22/2016 17:30:Uma Turner [facility]) Gen Hx Other Inher/Chromosomal: No (03/22/2016 17:30:Uma Turner [facility]) Gen Hx Maternal Metabolic DO: No (03/22/2016 17:30:Uma Turner [facility]) Gen Hx Pt Father or FOB Defect: No (03/22/2016 17:30:Uma Turner [facility]) Gen Hx Other Genetic History: No (03/22/2016 17:30:Uma Turner [facility]) Gen Hx Drugs/Meds since LMP: No (03/22/2016 17:30:Uma Turner [facility])
--- NOTE | 2016-04-22 10:01 | PDOC PROGRESS REPORT ---
Subjective-OB Subjective: Post Delivery Day: 25 year old. Denies any needs at this time Doing OK, feeling better than yesterday but still feels weak and feels like she needs to stay another day, slow with ambulation, passing flatus, + BM, eating well, scant lochia, diet taken well Physical Exam (OB) Vital Signs: Temp Pulse Resp BP Pulse Ox 98.4 F 91 18 119/80 100 04/22/16 08:29 04/22/16 08:29 04/22/16 08:29 04/22/16 08:29 04/22/16 08:29 Intake & Output 04/21/16 04/22/16 04/23/16 06:59 06:59 06:59 Intake Total 1500 1675 Output Total 1900 1000 Balance -400 675 - PIH/Pre-Eclampsia DTR's: 1 + Clonus: Negative Headache: Absent Epigastric Pain: No Visual Changes: No - Dressing Removed: No Incision: Well Approximated - Lochia Lochia Amount: Scant < 10 ml Lochia Color: Rubra/Red - Abdomen Description: Tender Hernia Present: No Fundal Description: Firm, Midline Fundal Height: u/u - u/2 Objective-Diagnostic Laboratory: 04/21/16 07:35 04/18/16 18:55 Assessment and Plan(PN) - Assessment and Plan (1) GBS (group B Streptococcus carrier), +RV culture, currently Is this a current diagnosis for this admission?: Yes (2) hemorrhage of vagina Is this a current diagnosis for this admission?: Yes (3) Delivery by section of full-term Is this a current diagnosis for this admission?: Yes - Time Spent with Patient Time with patient: Less than 15 minutes Medications reviewed and adjusted accordingly: Yes - Disposition Anticipated Discharge: Home Within: within 24 hours - home in am
[2016-04-22] MEDS: PRENATAL VITAMIN W-O CA NO5/FE FUMARATE/FA CAPSULE PO SCH (10:36)
[2016-04-22] MEDS: DOCUSATE SODIUM 100 MG CAPSULE PO SCH ×2 (10:36→17:45)
[2016-04-23] MEDS: OXYCODONE-ACETAMINOPHEN 5-325 MG TABLET PO PRN ×2 (00:01→05:48)
[2016-04-23] MEDS: IBUPROFEN 800 MG TABLET PO SCH ×3 (00:01→13:10)
--- NOTE | 2016-04-23 09:35 | PDOC PROGRESS REPORT ---
Subjective-OB Subjective: Post Delivery Day: 25 year old. Denies any needs at this time Doing well, no c/o, sitting up in bed, feeling alot better today, ambulating, diet taken well, passing gas, + BM Physical Exam (OB) Vital Signs: Temp Pulse Resp BP Pulse Ox 98.1 F 109 H 18 126/73 H 99 04/23/16 08:49 04/23/16 08:49 04/23/16 08:49 04/23/16 08:49 04/23/16 08:49 Intake & Output 04/22/16 04/23/16 04/24/16 06:59 06:59 06:59 Intake Total 1675 Output Total 1000 Balance 675 - PIH/Pre-Eclampsia DTR's: 1 + Clonus: Negative Headache: Absent Epigastric Pain: No Visual Changes: No - Dressing Removed: No - op site Incision: Well Approximated - Lochia Lochia Amount: Scant < 10 ml Lochia Color: Rubra/Red - Abdomen Description: Soft, Round Hernia Present: No Fundal Description: Firm, Midline Fundal Height: u/u - u/2 Objective-Diagnostic Laboratory: 04/21/16 07:35 04/18/16 18:55 Assessment and Plan(PN) - Assessment and Plan (1) GBS (group B Streptococcus carrier), +RV culture, currently Is this a current diagnosis for this admission?: Yes (2) hemorrhage of vagina Is this a current diagnosis for this admission?: Yes (3) Delivery by section of full-term infant Is this a current diagnosis for this admission?: Yes - Time Spent with Patient Time with patient: Less than 15 minutes Medications reviewed and adjusted accordingly: Yes - Disposition Anticipated Discharge: Home Within: Other - baby not going today, staying for evaluation
[2016-04-23 09:38] VITALS: BP 130/74
--- NOTE | 2016-04-23 09:40 | PDOC DISCHARGE SUMMARY ---
Final Diagnosis Discharge Date: 04/23/16 - Final Diagnosis (1) GBS (group B Streptococcus carrier), +RV culture, currently Is this a current diagnosis for this admission?: Yes (2) hemorrhage of vagina Is this a current diagnosis for this admission?: Yes (3) Delivery by section of full-term Is this a current diagnosis for this admission?: Yes Discharge Data - Discharge Medication Home Medications: Pnv No.122/Iron/Folic Acid [ Multi Tablet] 1 tab PO DAILY 03/22/16 Ibuprofen [Motrin 800 mg Tablet] 800 mg PO Q6 #60 tablet 04/23/16 Oxycodone HCl/Acetaminophen [Percocet 5-325 mg Tablet] 1 tab PO Q4HP PRN #20 tablet 04/23/16 Gestational Age: 37.1 Reason(s) for Admission: Induction of Labor, Obstetric Complications, PIH Procedures: NST, Ultrasound Intrapartum Procedure(s): : Low Cervical, Transverse - Start Data Baby 1 Female at 1 minute: 9 at 5 minutes: 9 Weight: 3.232 kg Home with Mother: No Complications: Yes - Diagnosis Test Laboratory: Temp Pulse Resp BP Pulse Ox 98.1 F 109 H 18 126/73 H 99 04/23/16 08:49 04/23/16 08:49 04/23/16 08:49 04/23/16 08:49 04/23/16 08:49 04/18/16 04/18/16 04/21/16 17:10 18:55 01:20 RBC 3.99 3.25 L Hgb 12.1 9.8 L D Hct 36.0 29.3 L Urine Opiates Screen NEGATIVE 04/21/16 07:35 RBC 2.97 L Hgb 9.0 L Hct 26.8 L Urine Opiates Screen - Discharge information/Instructions Discharge Activity: Activity As Tolerated, No Driving, No Lifting Over 10 Pounds , No Lifting/Push/Pulling, Pelvic Rest, No tub bath Discharge Diet: As Tolerated, Regular Disposition: HOME, SELF-CARE Follow up with: [facility] in: 1, Weeks
[2016-04-23] MEDS: PRENATAL VITAMIN W-O CA NO5/FE FUMARATE/FA CAPSULE PO SCH (10:23)
[2016-04-23] MEDS: DOCUSATE SODIUM 100 MG CAPSULE PO SCH (10:23)
== END 2016-04-23 13:47 | disposition home or self-care (01) | DRG 765 ==
LOC: LC 16:33 → LR 16:51 → 2S 04-21 02:15
PROVIDERS: ADMIT Student in an Organized Health Care Education/Training Program; ATTEND Student in an Organized Health Care Education/Training Program
PROC: 10D00Z1 Extraction of Products of Conception, Low, Open Approach (ICD-10-PCS; principal; 2016-04-20)
PROC: 3E0P7GC Introduction of Other Therapeutic Substance into Female Reproductive, Via Natural or Artificial Opening (ICD-10-PCS; 2016-04-20)
PROC: 10907ZC Drainage of Amniotic Fluid, Therapeutic from Products of Conception, Via Natural or Artificial Opening (ICD-10-PCS; 2016-04-20)
PROC: 4A1HXCZ Monitoring of Products of Conception, Cardiac Rate, External Approach (ICD-10-PCS; 2016-04-20)
DX: O65.9 Obstructed labor due to maternal pelvic abnormality, unspecified (principal); O72.1 Other immediate postpartum hemorrhage; O64.0XX0 Obstructed labor due to incomplete rotation of fetal head, not applicable or unspecified; O13.4 Gestational [pregnancy-induced] hypertension without significant proteinuria, complicating childbirth; O99.824 Streptococcus B carrier state complicating childbirth; O99.214 Obesity complicating childbirth; O99.284 Endocrine, nutritional and metabolic diseases complicating childbirth; E05.90 Thyrotoxicosis, unspecified without thyrotoxic crisis or storm; Z68.36 Body mass index [BMI] 36.0-36.9, adult; Z86.14 Personal history of Methicillin resistant Staphylococcus aureus infection; Z28.21 Immunization not carried out because of patient refusal; Z3A.37 37 weeks gestation of pregnancy; Z37.0 Single live birth
CPT/HCPCS: 1961; 36415; 80053; 80307; 81001; 83615; 84550; 85025; 85027; 85610; 85730; 86592; 86850; 86900; 86901; 94760; 94799; J0131; J0690; J1170; J1885; J2175; J2250; J2270; J2405; J2540; J2590; J3010; J3490; J7120

== ENCOUNTER 2018-11-08 09:27 | Inpatient (IN) | payer MEDICAID ==
[2018-11-08 10:16] LABS: APPEARANCE,URINE CLEAR; BILIRUBIN,URINE NEGATIVE (NEGATIVE); COLOR,URINE STRAW; GLUCOSE, URINE NEGATIVE (NEGATIVE); KETONES,URINE 20 mg/dL (NEGATIVE); LEUKOCYTE ESTERASE,URINE NEGATIVE (NEGATIVE); NITRITE,URINE NEGATIVE (NEGATIVE); PROTEIN,URINE NEGATIVE (NEGATIVE); URINE SPECIFIC GRAVITY 1.004; UROBILINOGEN,URINE NEGATIVE mg/dL (<2.0)
[2018-11-08 10:31] LABS: URINE AMPHETAMINES SCREEN NEGATIVE; URINE BARBITURATES SCREEN NEGATIVE; URINE BENZODIAZEPINES SCREEN NEGATIVE; URINE COCAINE SCREEN NEGATIVE; URINE MARIJUANA (THC) SCREEN NEGATIVE; URINE METHADONE SCREEN NEGATIVE; URINE PHENCYCLIDINE SCREEN NEGATIVE
[2018-11-08] MEDS ORDERED: RINGERS SOLUTION,LACTATED 1,000 ML IV ONE (11:32)
[2018-11-08] MEDS ORDERED: PENICILLIN G-K 5 MILLION UNIT VIAL ONE (11:32)
[2018-11-08] MEDS ORDERED: PENICILLIN G POTASSIUM 5,000,000 UNIT in DEXTROSE 5%-WATER 100 ML IV ONE (11:32)
[2018-11-08] MEDS ORDERED: RINGERS SOLUTION,LACTATED 1,000 ML IV PRN (11:32)
[2018-11-08] MEDS ORDERED: NORMAL SALINE 250 ML IV PRN (11:43)
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
[2018-11-08 12:13] LABS: ABSOLUTE LYMPHOCYTES (AUTO) 2.1 10^3/uL (0.5-4.7); ABSOLUTE MONOCYTES (AUTO) 1.1 10^3/uL (0.1-1.4); ABSOLUTE NEUT (AUTO) 8.8 10^3/uL (1.7-8.2); BASOPHILS % (AUTO) 0.2 % (0-2); EOSINOPHILS % (AUTO) 0.3 % (0-6); HEMATOCRIT 34.5 % (36.0-47.0); HEMOGLOBIN 11.3 g/dL (12.0-15.5); LYMPHOCYTES % (AUTO) 17.2 % (13-45); MEAN CORPUSCULAR HEMOGLOBIN 27.5 pg (27.0-33.4); MEAN CORPUSCULAR HGB CONC 32.7 g/dL (32.0-36.0); MEAN CORPUSCULAR VOLUME 84 fl (80-97); MONOCYTES % (AUTO) 8.8 % (3-13); PLATELET COUNT 270 10^3/uL (150-450); RED CELL DISTRIBUTION WIDTH 15.1 % (11.5-14.0); SEGMENTED NEUTROPHILS % (AUTO) 73.5 % (42-78); TOTAL CELLS COUNTED % (AUTO) 100 %
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
[2018-11-08] MEDS ORDERED: PENICILLIN G POTASSIUM 2,500,000 UNIT in DEXTROSE 5%-WATER 50 ML IV SCH (15:33)
[2018-11-11 13:56] LABS: HSV-I IGG AB <0.91 index (0.00-0.90)
== END 2018-11-08 13:06 | disposition left against medical advice (07) | DRG 832 ==
LOC: LC 09:27 → LR 11:39
PROVIDERS: ADMIT Student in an Organized Health Care Education/Training Program; ATTEND Student in an Organized Health Care Education/Training Program
DX: O34.219 Maternal care for unspecified type scar from previous cesarean delivery (principal); O98.313 Other infections with a predominantly sexual mode of transmission complicating pregnancy, third trimester; A60.00 Herpesviral infection of urogenital system, unspecified; Z79.899 Other long term (current) drug therapy; Z3A.40 40 weeks gestation of pregnancy
CPT/HCPCS: 36415; 59025; 80307; 81005; 85025; 86592; 86695; 86850; 86900; 86901; 86920; J2540